=== PATIENT | male | born 1930 | race Caucasian/White ===

== ENCOUNTER → 2017-05-26 | Day surgery (SDC) | payer OTHER ==
[2017-05-13 14:51] VITALS: Ht 182.9 cm; Wt 91.9 kg
--- NOTE | 2017-05-13 15:18 | PAT Medication Instructions ---
Service Date May 13, 2017. Current Home Medication List Cholecalciferol (D 1000), 1 TAB PO QAM Cyanocobalamin (Vitamin B-12), 1,000 MCG PO QAM Fluticasone Prop/Salmeterol (Advair Diskus 100/50 60 Dose), 1 PUFF INH QAM Hctz/Spironolactone (Spironolactone/Hydrochlor 25-25 mg), 0.5 TAB PO QAM Silodosin (Rapaflo), 1 CAP PO QPM Medication Instructions For Your Scheduled Surgery - Hold the following medications the morning of surgery: Cholecalciferol (D 1000), 1 TAB PO QAM Cyanocobalamin (Vitamin B-12), 1,000 MCG PO QAM Hctz/Spironolactone (Spironolactone/Hydrochlor 25-25 mg), 0.5 TAB PO QAM - Take the following medications the morning of surgery with a sip of water: Fluticasone Prop/Salmeterol (Advair Diskus 100/50 60 Dose), 1 PUFF INH QAM - Take the following medications as scheduled the night before surgery: Silodosin (Rapaflo), 1 CAP PO QPM If you have any questions please call us at [phone] or [phone] or [phone]
[2017-05-13 15:52] LABS: BASO % 0.3 %; BASO ABS # 0.02 K/uL (0-0.2); EOS % 4.9 %; EOS ABS # 0.34 K/uL (0-0.5); HEMATOCRIT 39.6 % (42-52); HEMOGLOBIN 13.2 g/dL (14.0-18.0); IG# 0.03 K/uL (0.00-0.02); LYMPH % 28.8 %; LYMPH ABS # 2.01 K/uL (1.2-3.4); MEAN CELL VOLUME 95.7 fL (80-100); MEAN CORPUSCULAR HEMOGLOBIN 31.9 pg (25-34); MEAN CORPUSCULAR HGB CONC 33.3 g/dl (32-36); MEAN PLATELET VOLUME 10.6 fL (7.4-10.4); MONO % 9.6 %; MONO ABS # 0.67 K/uL (0.11-0.59); NEUT ABS # 3.92 K/uL (1.4-6.5); PLATELET COUNT 136 K/uL (130-400); RED CELL DISTRIBUTION WIDTH CV 13.4 % (11.5-14.5); RED CELL DISTRIBUTION WIDTH SD 46.6 fL (36.4-46.3); WHITE BLOOD COUNT 6.99 K/uL (4.8-10.8)
--- NOTE | 2017-05-13 16:08 | DIAGNOSTIC IMAGING REPORT ---
CHEST 2 VIEWS ROUTINE CLINICAL HISTORY: PAT preoperative evaluation COMPARISON STUDY: 08/25/2015 FINDINGS: Mild stable cardiomegaly. Tortuosity thoracic aorta. Lungs show no focal infiltrate. Chronic pleural reactive changes left hemithorax. This is unchanged. Several small calcified granulomas also unchanged. No acute infiltrate. IMPRESSION: Chronic change. No acute process. The above report was generated using voice recognition software. It may contain grammatical, syntax or spelling errors. Electronically signed by: Rishi Boothe M.D. 05/13/2017 4:06 PM Dictated Date/Time: 05/13/2017 4:05 PM
[2017-05-13 16:20] LABS: CALCIUM 10.3 mg/dl (8.5-10.1); CREATININE 0.94 mg/dl (0.60-1.40)
[~2017-05-26] VITALS: Ht 182.9 cm; Wt 91.9 kg
[~2017-05-26] MED LIST: ADVIN10/60 INH; ATROPINE SULFATE 0.1 MG/ML 5ML SYR IV PRN; BUPIVACAINE 0.5 % 5 MG/1 ML MPF 30ML VIAL ONE; CHOL100041 PO; CIPROFLOXACIN / D5W 400 MG IV SCH; CYAN10005 PO; DEXAMETHASONE SOD INJ 4 MG/ML VIAL ONE; EpHEDrine SULFATE 50MG/5ML SYR ONE; EpHEDrine SULFATE INJ 50 MG/ML AMP IV PRN; FENTANYL CITRATE INJ 50 MCG/1 ML 2 ML VIAL ONE; HYDROmorphone INJ 2 MG/ML SYR/VIAL IV PRN; LACTATED RINGER'S 1000ML 1,000 ML IV SCH; LIDOCAINE HCL 2% 2 ML VIAL (20MG/ML) ONE; ONDANSETRON INJ 2 MG/ML 2 ML VIAL IV PRN; ONDANSETRON INJ 2 MG/ML 2 ML VIAL ONE; OXYC-57 PO; OXYCODONE/ACETAMINOPHEN 5-325 TAB PO PRN; PHENYLEPHRINE 100MCG/ML 5ML SYR IV PRN; PROPOFOL IV EMULSION 10 MG/ML 20 ML VIAL IV ONE; SILO8CAP PO; SPIR1TAB72 PO
[2017-05-26 08:29] VITALS: BP 176/81; PULSE 82; TEMP 36.6; O2SAT 95
--- NOTE | 2017-05-26 09:41 | History & Physical Bridge Note ---
H&P Re-Evaluation Bridge Note: I have examined the patient, reviewed the History & Physical and in the interval since the performance of the History & Physical I have noted the following changes of clinical significance: No changes noted
--- NOTE | 2017-05-26 11:17 | [facility] Post Operative Brief Note ---
Immediate Operative Summary Operative Date May 26, 2017. Pre-Operative Diagnosis Phimosis Post-Operative Diagnosis Phimosis Procedure(s) Performed Circumcision Surgeon Dr Smith Arch Pad Cementer Surgeon(s) none Estimated Blood Loss 1cc Findings Consistent with Post-Op Diagnosis Specimens A: Foreskin Drains None Anesthesia Type General Complication(s) none Disposition Accompanied Pt To Recover: yes Disposition: Recovery Room / PACU
--- NOTE | 2017-05-26 11:18 | Discharge Instructions ---
Discharge Instructions Date of Service May 26, 2017. Visit Reason for Visit: Phimosis Discharge Discharge Diagnosis / Problem: phimosis Discharge Goals Goal(s): Therapeutic intervention Activity Recommendations Activity Limitations: per Instructions/Follow-up section Exercise/Sports Limitations: gradually increase as tolerated May Resume Sexual Activity: after follow-up appointment Shower/Bathe: no limitations Driving or Machine Use: resume 1 day after discharge Anesthesia . Post Anesthesia Instructions: If you have had General Anesthesia or IV Sedation: * Do not drive today. * Resume driving when surgeon permits. * Do not make important decisions or sign legal documents today. * Call surgeon for: 1. Temperature elevations greater than 101 degrees F. 2. Uncontrollable pain. 3. Excessive bleeding. 4. Persistent nausea and vomiting. 5. Medication intolerance (nausea, vomiting or rash). * For nausea and vomiting use only clear liquids such as: tea, soda, bouillon until nausea subsides, then gradually increase diet as tolerated. * If you have any concerns or questions, call your surgeon's office. If physician is unavailable and it is an emergency, call 911 or go to the nearest emergency room. . Diet Recommendations Recommended Home Diet: resume previous diet Procedures Procedures Performed: Circumcision Pending Studies Studies pending at discharge: no Medical Emergencies . Who to Call and When: Medical Emergencies: If at any time you feel your situation is an emergency, please call 911 immediately. . Non-Emergent Contact Non-Emergency issues call your: Urologist Call Non-Emergent contact if: temperature is above 101.5, your pain is not controlled . . "Provider Documentation" section prepared by Ronak Smith. . [place] [facility] [place] [facility] Search Results: patient reviewed within database
--- NOTE | 2017-05-26 11:37 | [facility] Operative Report ---
Operative Report Operative Date May 26, 2017. Pre-Operative Diagnosis Phimosis Post-Operative Diagnosis Phimosis Procedure(s) Performed Circumcision Surgeon Dr Smith Delivery Helper Surgeon(s) none Estimated Blood Loss 1cc Findings Phimotic foreskin Specimens A: Foreskin Drains None Anesthesia Type General Complication(s) none Disposition yes Recovery Room / PACU Indications Patient's an 86-year-old white male with phimosis who requested to have a circumcision for correction Description of Procedure After the induction of an adequate general anesthetic and appropriate timeout patient's lower abdomen genitalia phallus with scrubbed with Betadine scrub then prepped with Betadine paint and draped in a sterile fashion. First a circumferential incision along the etienne was marked on the outer preputial foreskin incision was then made circumferentially along this line. Carried down through skin through the some of the subcutaneous tissues foreskin was then retracted in an inner preputial incision was made leaving a cuff of tissue on the shaft of the penis to sew to the 2 cut edges were then connected in the middle and the tissue was dissected off the shaft any bleeding points were then electrocoagulated several of the larger vessels were tied with 4-0 Vicryl. After making sure there was no bleeding the 2 cut edges were then reapproximated with 3-0 and 4-0 chromic. After completing the reanastomosis the incision was washed and dried and Xeroform gauze and a dry sterile dressing were applied. All needle sponge and instrument counts were correct at the end of the case. Patient tolerated the procedure well was taken to the recovery room in stable condition I attest to the content of the Intraoperative Record and any orders documented therein. Any exceptions are noted below.
--- NOTE | 2017-05-26 11:52 | Anesthesiology Progress Note ---
Anesthesia Post Op Note Date & Time May 26, 2017 at 11:52 Vital Signs Pain Intensity: 0 Vital Signs Past 12 Hours Date Time Temp Pulse Resp B/P (MAP) Pulse Ox O2 Delivery O2 Flow Rate FiO2 05/26/17 11:45 71 18 05/26/17 11:45 71 18 93 05/26/17 11:43 137/75 05/26/17 11:42 36.3 70 16 137/75 93 Room Air 05/26/17 11:40 70 21 05/26/17 11:40 69 21 97 05/26/17 11:38 140/78 05/26/17 11:35 69 21 99 05/26/17 11:35 69 21 05/26/17 11:34 69 17 05/26/17 11:34 69 17 99 05/26/17 11:33 142/80 05/26/17 11:30 139/72 05/26/17 11:29 67 15 99 05/26/17 11:29 67 15 05/26/17 11:20 66 18 134/69 (81) 99 Oxymask 10 05/26/17 11:14 36.6 67 14 139/72 (97) 99 Oxymask 10 05/26/17 08:29 36.6 82 20 176/81 (112) 95 Room Air Notes Mental Status: alert / awake / arousable, participated in evaluation Pt Amnestic to Procedure: Yes Nausea / Vomiting: adequately controlled Pain: adequately controlled Airway Patency, RR, SpO2: stable & adequate BP & HR: stable & adequate Hydration State: stable & adequate Anesthetic Complications: no major complications apparent
[2017-05-26 12:00] VITALS: BP 148/77; PULSE 69; TEMP 36.3; O2SAT 95
[2017-05-26 12:30] VITALS: BP 156/81; PULSE 68; TEMP 36.2; O2SAT 93
[2017-05-26 13:10] VITALS: BP 177/91; PULSE 75; TEMP 36.3; O2SAT 95
== END | disposition home or self-care (01) ==
LOC: C.ACU 07:58
PROVIDERS: ATTEND Urology
DX: N47.1 Phimosis (principal); J44.9 Chronic obstructive pulmonary disease, unspecified; K21.9 Gastro-esophageal reflux disease without esophagitis; F10.20 Alcohol dependence, uncomplicated; J45.909 Unspecified asthma, uncomplicated; N40.1 Benign prostatic hyperplasia with lower urinary tract symptoms; N13.8 Other obstructive and reflux uropathy; Z86.718 Personal history of other venous thrombosis and embolism; M81.0 Age-related osteoporosis without current pathological fracture; Z87.01 Personal history of pneumonia (recurrent); Z87.891 Personal history of nicotine dependence; Z88.2 Allergy status to sulfonamides; Z90.49 Acquired absence of other specified parts of digestive tract; Z83.3 Family history of diabetes mellitus; Z80.1 Family history of malignant neoplasm of trachea, bronchus and lung; Z80.0 Family history of malignant neoplasm of digestive organs

== ENCOUNTER 2020-09-21 22:58 | Inpatient (IN) ==
[2020-09-21] MEDS ORDERED: SODIUM CHLORIDE 0.9% 500 ML IV ONE (23:48)
[2020-09-21] MEDS ORDERED: fentaNYL citrate 100 MCG/2 ML VIAL IV STA (23:48)
--- NOTE | 2020-09-21 23:57 | Emergency Department Note ---
Impression & Plan Acute pancreatitis, Acute cholecystitis, RLL pneumonia ED Provider Note Name: TOM PENG Age: 89 Sex: M Arrives Via: Walk-In Informant: Patient, son ED Provider: Orville Ramos MD Chief Complaint: right flank pain Impression: Acute Pancreatitis Acute Cholecystitis RLL Pneumonia Medical Decision Makin yr old male with acute right flank pain starting after eating this evening. He arrives hypoxia with significant TTP entire right and upper abdomen. He has crackles bilateral lower lobes and is not taking very deep breaths. IV obtained and IV fentanyl given for pain control, did well with initial dose though still uncomfortable thus bigger dose given with good improvement. CXR with RLL infiltrate. Labs with bumped LFTs, Lipase, and mild wbc elevation. CT confirms concern for pneumonia, though of bigger concern is acute pancreatitis and enlarged gallbladder. Suspect this is acute cholecystitis with pancreatitis. Unclear why pneumonia. With findings of infection blood cultures and lactate obtained. Empiric zosyn begun. Lactate returned mildly elevated and thus further IV fluids given. Patient feeling better and agreeable to ho spitalization. Aware risks of worsening. Prior Medical Record and Triage/Nursing Notes reviewed by Me Additional history obtained from chart and son Given the patients BMI >30, IBW was used to calculate the 30ml/kg fluid bolus. Differentials:Renal colic, Pancreatitis, pneumonia, PE, UTI, appendicitis, diverticulitis, mesenteric ischemia, aortic pathology, infections, inflammatory bowel disease, PUD, biliary pathology, as well as other pathologies. Vital Signs: reviewed and remarkable for hypoxia Interventions: saline lock, nss bolus 2 L IV, Zosyn IV, Labs:Reviewed and remarkable for elevated lipase/lfts Imaging:X ray results are stated below per my interpretation: Chest: 1 view: RLL infiltrate [facility] Radiologist interpretation reviewed by me: "CT ABDOMEN & PELVIS With Contrast: Pancreatitis. No pseudocyst. Gallbladder distention and mild edema. No radiodense gallstones. Biliary ectasia. Duodenal diverticula. Fat-containing ventral hernia. Thickened, trabeculated bladder with diverticula. Colonic diverticula without diverticulitis. Small right inguinal hernia Compression fracture L1 Thoracic findings as reported. Radiologist: Zahra Izquierdo M.D. CTA CHEST: No pulmonary embolus. Bibasilar consolidation. Calcified pleural plaques. Cardiomegaly. Trace pericardial fluid. Small hiatal hernia. Refer to CT abdomen for additional findings. Radiologist: Zahra Izquierdo M.D." EKG:Per My Interpretation: Indication right flank pain: NSR 100 bpm, qtc 474 with PVCs. No Ischemia. Unable to open previous EKG for comparison Cardiac/Tele Monitoring: Cardiac Monitoring: An Order was placed for continuous cardiac monitoring. The monitor shows a rate of 90 with a normal sinus rhythm. Consults:Dr Jenaro REDDY Hospitalist Plan: Disposition:Hospitalization. Condition: Fair History of Present Illness:89 yr old male arrives for evaluation of right flank pain. Notes he ate dinner around 6pm and developed right flank pain shortly thereafter. Gradually worsening. Radiates to RLQ. Associated with diffuse ab dominal pain. Worse with movement and deep breath. Denies nausea, vomiting, sob, chest pain, back pain, syncope, leg swelling, headache, neck pain, urinary symptoms, diarrhea, blood in stool, nor other symptoms. Denies previous episodes like this. Previous appendectomy. No history of renal colic. Denies AAA known. ROS: See above HPI for pertinent positives & negatives. A total of 10 systems reviewed and were otherwise negative. Past Medical History:See Below Past Surgical History:See Below Family History:See Below Social History:See Below Home Medications:See Below Allergies:See Below Vitals:Blood Pressure: 118/64, Pulse 98, RR 20, T 36.8C, O2 84% on RA Physical Exam: GENERAL: Patient is uncomfortable appearing and in moderate distress. EYES: No scleral icterus, unremarkable pupils. ENT: Mucous membranes dry, no nasal congestion. NECK: No masses appreciated, nomeningismus, trachea is midline. RESPIRATORY: No dyspnea. Clear to auscultation and equal bilaterally. No wheeze, no rhonchi. CARDIOVASCULAR: Regular rate and rhythm.No murmurs, rubs, gallops appreciated. GASTROINTESTINAL: TTP entire right abdomen, soft, no peritonitis.Bowel sounds positive.No masses appreciated. BACK: No midline tenderness, no CVA tenderness EXTREMITIES: Normal motion all extremities, no cyanosis, no edema. NEUROLOGIC: Alert and oriented, no acute motor or sensory deficits, no focal weakness, cranial nerves grossly intact. SKIN: No rash, no jaundice, no diaphoresis. PSYCH: Appropriate GCS: 15 ED Course: Times/Reassessments: Improving pain, stable vitals other than mild drop in BP with pain medications. Sats improved with NC O2 Orville Ramos MD Past Med/Surg History Medical History (Updated 09/22/20 @ 05:15 by Orville Ramos MD) BPH with obstruction/lower urinary tract symptoms Social History Smoking Status: Former smoker Tobacco Type: Cigarettes Preferred Language: [place] Feels Safe at Home: Yes Allergies Allergies Allergy/AdvReac Type Severity Reaction Status Date / Time Quinolones AdvReac Unknown NAUSEA/CHIL Verified 09/22/20 00:19 LS sulfamethoxazole AdvReac Unknown NAUSEA/CHIL Verified 09/22/20 00:19 LS trimethoprim AdvReac Unknown NAUSEA/CHIL Verified 09/22/20 00:19 LS WOOL Allergy Unknown ITCHING Uncoded 09/22/20 00:19 Home Meds Home Medications Medication Instructions Recorded Confirmed cyanocobalamin (vitamin B-12) 1,000 mcg PO DAILY 12/17/18 09/22/20 1,000 mcg capsule alendronate 35 mg PO WK 09/22/20 09/22/20 cholecalciferol (vitamin D3) 50 mcg PO BID 09/22/20 09/22/20 [Vitamin D3] mirabegron [Myrbetriq] 25 mg PO QPM 09/22/20 09/22/20 spironolacton-hydrochlorothiaz 1 tab PO QAM 09/22/20 09/22/20 tamsulosin 0.4 mg PO DAILY 09/22/20 09/22/20 Results & Data (ED) Vital Signs Vital Signs - 24 hr 09/21/20 22:59 09/21/20 23:09 09/21/20 23:26 Pulse Rate 98 H 103 H Pulse Rate from SpO2 Sensor Pulse Rhythm Regular Pulse Strength Normal Respiratory Rate 20 23 Respiratory Effort / Characteristics Non-Labored Spontaneous Non-Labored Respiratory Depth Normal Normal Blood Pressure 118/64 132/67 Blood Pressure [Left Arm] Blood Pressure Mean 82 88 Blood Pressure Mean [Left Arm] Blood Pressure Position Sitting Pulse Oximetry 85 L 91 Oxygen Delivery Method Room Air Nasal Cannula Oxygen Flow Rate 4 Sepsis Recent Fever Within 48 Hours No Sepsis New/Unexplained Change in Mental Status N/A Sepsis Action Taken by Nursing No Action Required 09/21/20 23:30 09/22/20 00:00 09/22/20 00:30 Pulse Rate 97 H 99 H 100 H Pulse Rate from SpO2 Sensor 91 H 98 H 101 H Pulse Rhythm Pulse Strength Respiratory Rate 23 22 36 H Respiratory Effort / Characteristics Respiratory Depth Blood Pressure 119/55 L 112/65 111/65 Blood Pressure [Left Arm] Blood Pressure Mean 76 80 80 Blood Pressure Mean [Left Arm] Blood Pressure Position Pulse Oximetry 91 91 94 Oxygen Delivery Method Nasal Cannula Oxygen Flow Rate 3 Sepsis Recent Fever Within 48 Hours Sepsis New/Unexplained Change in Mental Status Sepsis Action Taken by Nursing 09/22/20 00:31 09/22/20 01:08 09/22/20 01:30 Pulse Rate 101 H 95 H Pulse Rate from SpO2 Sensor 96 H 98 H 95 H Pulse Rhythm Pulse Strength Respiratory Rate 26 H 23 Respiratory Effort / Characteristics Respiratory Depth Blood Pressure 99/50 L Blood Pressure [Left Arm] Blood Pressure Mean 66 Blood Pressure Mean [Left Arm] Blood Pressure Position Pulse Oximetry 94 93 94 Oxygen Delivery Method Oxygen Flow Rate Sepsis Recent Fever Within 48 Hours Sepsis New/Unexplained Change in Mental Status Sepsis Action Taken by Nursing 09/22/20 02:00 09/22/20 02:42 09/22/20 04:00 Pulse Rate 93 H 82 Pulse Rate from SpO2 Sensor 96 H 81 Pulse Rhythm Pulse Strength Respiratory Rate 22 24 Respiratory Effort / Characteristics Respiratory Depth Blood Pressure 91/49 L 97/62 L Blood Pressure [Left Arm] 87/59 L Blood Pressure Mean 63 73 Blood Pressure Mean [Left Arm] 68 Blood Pressure Position Pulse Oximetry 93 92 Oxygen Delivery Method Nasal Cannula Oxygen Flow Rate 4 Sepsis Recent Fever Within 48 Hours Sepsis New/Unexplained Change in Mental Status Sepsis Action Taken by Nursing 09/22/20 05:10 Pulse Rate Pulse Rate from SpO2 Sensor Pulse Rhythm Pulse Strength Respiratory Rate Respiratory Effort / Characteristics Respiratory Depth Blood Pressure 87/50 L Blood Pressure [Left Arm] Blood Pressure Mean Blood Pressure Mean [Left Arm] Blood Pressure Position Pulse Oximetry 92 Oxygen Delivery Method Room Air Oxygen Flow Rate Sepsis Recent Fever Within 48 Hours Sepsis New/Unexplained Change in Mental Status Sepsis Action Taken by Nursing Laboratory Data Result diagrams: 09/21/20 23:15 09/21/20 23:15 Lab Results 09/21/20 09/21/20 09/21/20 Range/Units 23:15 23:15 23:15 WBC 13.60 H (4.8-10.8) K/uL RBC 4.70 (4.7-6.1) M/uL Hgb 15.0 (14.0-18.0) g/dL Hct 45.3 (42-52) % MCV 96.4 (80-100) fL MCH 31.9 (25-34) pg MCHC 33.1 (32-36) g/dL RDW Std Deviation 48.3 H (36.4-46.3) fL RDW Coeff of Andre 13.7 (11.5-14.5) % Plt Count 120 L (130-400) K/uL MPV 11.5 H (7.4-10.4) fL Immature Gran % (Auto) 0.4 % Neut % (Auto) 90.7 % Lymph % (Auto) 7.4 % [place] % (Auto) 1.1 % Eos % (Auto) 0.4 % Baso % (Auto) 0.0 % Neut # (Auto) 12.34 H (1.4-6.5) K/uL Lymph # (Auto) 1.01 L (1.2-3.4) K/uL [place] # (Auto) 0.15 (0.11-0.59) K/uL Eos # (Auto) 0.05 (0-0.5) K/uL Baso # (Auto) 0.00 (0-0.2) K/uL Immature Gran # (Auto) 0.05 H (0.00-0.02) K/uL PT 11.0 (9.0-12.0) Seconds INR 1.1 (0.9-1.1) Sodium 138 (136-145) mmol/L Potassium 3.5 (3.5-5.1) mmol/L Chloride 104 (98-107) mmol/L Carbon Dioxide 25 (21-32) mmol/L Anion Gap 9.0 (3-11) BUN 19 H (7-18) mg/dl Creatinine 1.15 (0.6-1.4) mg/dl Est Cr Clr Drug Dosing Not Reportable Est GFR ( Amer) 65.5 ml/min Est GFR (Non-Af Amer) 56.5 ml/min BUN/Creatinine Ratio 16.9 (10-20) Glucose 92 (70-99) mg/dl Lactate (0.4-2.0) mmol/L Calcium 9.5 (8.5-10.1) mg/dl Magnesium 2.0 (1.8-2.4) mg/dl Total Bilirubin 2.3 H (0.2-1) mg/dl Direct Bilirubin 1.2 H (0-0.2) mg/dl AST 239 H (15-37) U/L ALT 107 H (12-78) U/L Alkaline Phosphatase 187 H (45-117) U/L Troponin I 0.018 (0-0.045) ng/ml NT-Pro-B Natriuret Pep 1852 H (0-1800) pg/ml Total Protein 7.7 (6.4-8.2) gm/dl Albumin 3.9 (3.4-5.0) gm/dl Lipase 96804 H (73-393) U/L Urine Color Urine Appearance (Clear) Urine pH (4.5-7.5) Ur Specific [place] (1.000-1.030) Urine Protein (Negative) Urine Glucose (UA) (Negative) Urine Ketones (Negative) Urine Blood (Negative) Urine Nitrite (Negative) Urine Bilirubin (Negative) Urine Urobilinogen (Negative) Ur Leukocyte Esterase (Negative) Urine WBC (Auto) (0-5) /hpf Urine RBC (Auto) (0-4) /hpf U Hyaline Cast (Auto) (0-5) /lpf U Epithel Cells (Auto) (0-5) /lpf Urine Bacteria (Auto) (Negative) COVID-19 Eval Order SARS-CoV-2 (PCR) (Negative) 09/22/20 09/22/20 09/22/20 Range/Units 01:35 01:35 01:46 WBC (4.8-10.8) K/uL RBC (4.7-6.1) M/uL Hgb (14.0-18.0) g/dL Hct (42-52) % MCV (80-100) fL MCH (25-34) pg MCHC (32-36) g/dL RDW Std Deviation (36.4-46.3) fL RDW Coeff of Andre (11.5-14.5) % Plt Count (130-400) K/uL MPV (7.4-10.4) fL Immature Gran % (Auto) % Neut % (Auto) % Lymph % (Auto) % [place] % (Auto) % Eos % (Auto) % Baso % (Auto) % Neut # (Auto) (1.4-6.5) K/uL Lymph # (Auto) (1.2-3.4) K/uL [place] # (Auto) (0.11-0.59) K/uL Eos # (Auto) (0-0.5) K/uL Baso # (Auto) (0-0.2) K/uL Immature Gran # (Auto) (0.00-0.02) K/uL PT (9.0-12.0) Seconds INR (0.9-1.1) Sodium (136-145) mmol/L Potassium (3.5-5.1) mmol/L Chloride (98-107) mmol/L Carbon Dioxide (21-32) mmol/L Anion Gap (3-11) BUN (7-18) mg/dl Creatinine (0.6-1.4) mg/dl Est Cr Clr Drug Dosing Est GFR ( Amer) ml/min Est GFR (Non-Af Amer) ml/min BUN/Creatinine Ratio (10-20) Glucose (70-99) mg/dl Lactate 2.2 H* (0.4-2.0) mmol/L Calcium (8.5-10.1) mg/dl Magnesium (1.8-2.4) mg/dl Total Bilirubin (0.2-1) mg/dl Direct Bilirubin (0-0.2) mg/dl AST (15-37) U/L ALT (12-78) U/L Alkaline Phosphatase (45-117) U/L Troponin I (0-0.045) ng/ml NT-Pro-B Natriuret Pep (0-1800) pg/ml Total Protein (6.4-8.2) gm/dl Albumin (3.4-5.0) gm/dl Lipase (73-393) U/L Urine Color Urine Appearance (Clear) Urine pH (4.5-7.5) Ur Specific [place] (1.000-1.030) Urine Protein (Negative) Urine Glucose (UA) (Negative) Urine Ketones (Negative) Urine Blood (Negative) Urine Nitrite (Negative) Urine Bilirubin (Negative) Urine Urobilinogen (Negative) Ur Leukocyte Esterase (Negative) Urine WBC (Auto) (0-5) /hpf Urine RBC (Auto) (0-4) /hpf U Hyaline Cast (Auto) (0-5) /lpf U Epithel Cells (Auto) (0-5) /lpf Urine Bacteria (Auto) (Negative) COVID-19 Eval Order Covid19 at [facility] SARS-CoV-2 (PCR) NEGATIVE (Negative) 09/22/20 Range/Units 02:45 WBC (4.8-10.8) K/uL RBC (4.7-6.1) M/uL Hgb (14.0-18.0) g/dL Hct (42-52) % MCV (80-100) fL MCH (25-34) pg MCHC (32-36) g/dL RDW Std Deviation (36.4-46.3) fL RDW Coeff of Andre (11.5-14.5) % Plt Count (130-400) K/uL MPV (7.4-10.4) fL Immature Gran % (Auto) % Neut % (Auto) % Lymph % (Auto) % [place] % (Auto) % Eos % (Auto) % Baso % (Auto) % Neut # (Auto) (1.4-6.5) K/uL Lymph # (Auto) (1.2-3.4) K/uL [place] # (Auto) (0.11-0.59) K/uL Eos # (Auto) (0-0.5) K/uL Baso # (Auto) (0-0.2) K/uL Immature Gran # (Auto) (0.00-0.02) K/uL PT (9.0-12.0) Seconds INR (0.9-1.1) Sodium (136-145) mmol/L Potassium (3.5-5.1) mmol/L Chloride (98-107) mmol/L Carbon Dioxide (21-32) mmol/L Anion Gap (3-11) BUN (7-18) mg/dl Creatinine (0.6-1.4) mg/dl Est Cr Clr Drug Dosing Est GFR ( Amer) ml/min Est GFR (Non-Af Amer) ml/min BUN/Creatinine Ratio (10-20) Glucose (70-99) mg/dl Lactate (0.4-2.0) mmol/L Calcium (8.5-10.1) mg/dl Magnesium (1.8-2.4) mg/dl Total Bilirubin (0.2-1) mg/dl Direct Bilirubin (0-0.2) mg/dl AST (15-37) U/L ALT (12-78) U/L Alkaline Phosphatase (45-117) U/L Troponin I (0-0.045) ng/ml NT-Pro-B Natriuret Pep (0-1800) pg/ml Total Protein (6.4-8.2) gm/dl Albumin (3.4-5.0) gm/dl Lipase (73-393) U/L Urine Color Dark Yellow Urine Appearance Clear (Clear) Urine pH 6.0 (4.5-7.5) Ur Specific [place] > 1.045 H (1.000-1.030) Urine Protein Trace H (Negative) Urine Glucose (UA) Negative (Negative) Urine Ketones Negative (Negative) Urine Blood Negative (Negative) Urine Nitrite Negative (Negative) Urine Bilirubin 1+ H (Negative) Urine Urobilinogen Negative (Negative) Ur Leukocyte Esterase Negative (Negative) Urine WBC (Auto) 1-5 (0-5) /hpf Urine RBC (Auto) 0-4 (0-4) /hpf U Hyaline Cast (Auto) 0 (0-5) /lpf U Epithel Cells (Auto) 0-5 (0-5) /lpf Urine Bacteria (Auto) Negative (Negative) COVID-19 Eval Order SARS-CoV-2 (PCR) (Negative) Administered Medications Discontinued Medications Fentanyl Citrate (Fentanyl Citrate 100 Mcg/2 Ml Vial) 25 mcg IV NOW STA Stop: 09/21/20 23:49 Last Admin: 09/22/20 00:08 Dose: 25 mcg Documented by: [id number] Fentanyl Citrate (Fentanyl Citrate 100 Mcg/2 Ml Vial) 50 mcg IV NOW STA Stop: 09/22/20 00:33 Last Admin: 09/22/20 00:38 Dose: 50 mcg Documented by: [id number] Sodium Chloride (Nss) 500 mls @ 999 mls/hr IV .Q31M ONE Stop: 09/22/20 00:18 Last Infusion: 09/22/20 00:45 Dose: 0 mls/hr Documented by: [id number] Admin: 09/22/20 00:09 Dose: 999 mls/hr Documented by: [id number] Sodium Chloride (Nss 1000ml) 1,000 mls @ 999 mls/hr IV .Q1H1M ONE Stop: 09/22/20 02:21 Last Admin: 09/22/20 01:50 Dose: 999 mls/hr Documented by: [id number] Piperacillin Sod/Tazobactam Sod (Zosyn) 4.5 gm in 120 mls @ 240 mls/hr IV NOW ONE Stop: 09/22/20 01:50 Last Infusion: 09/22/20 02:20 Dose: 0 mls/hr Documented by: [id number] Admin: 09/22/20 01:50 Dose: 240 mls/hr Documented by: [id number] Promethazine HCl (Phenergan) 6.25 mg in 50.25 mls @ 201 mls/hr IV NOW STA Stop: 09/22/20 02:57 Last Admin: 09/22/20 02:59 Dose: 201 mls/hr Documented by: [id number] Ioversol (Optiray 320 125ml) 125 ml IV ONCE ONE Stop: 09/22/20 01:11 Last Admin: 09/22/20 01:10 Dose: 118 ml Documented by: [id number] Ondansetron HCl (Ondansetron Inj 2 Mg/Ml 2 Ml Vial) 4 mg IV NOW STA Stop: 09/22/20 01:16 Last Admin: 09/22/20 01:29 Dose: 4 mg Documented by: [id number] Discharge Plan Visit Data Chief Complaint: Abdominal Pain Stated Complaint: ABDOMINAL PAIN, VOMITING, CHILLS ED Provider: Orville Ramos Discharge Problem: Acute pancreatitis, Acute cholecystitis, RLL pneumonia Patient Disposition: Admitted As Inpatient Discharge Instructions Interventions: ED Discharge Assessment Last Done: 09/22/20 05:10 Forms Stand Alone Forms: [facility] [place] Prescriptions Prescriptions: No Action cyanocobalamin (vitamin B-12) 1,000 mcg capsule 1,000 mcg PO DAILY RF: 0 alendronate 35 mg tablet 35 mg PO WK RF: 0 tamsulosin 0.4 mg capsule 0.4 mg PO DAILY RF: 0 spironolacton-hydrochlorothiaz 25-25 mg tablet 1 tab PO QAM RF: 0 cholecalciferol (vitamin D3) [Vitamin D3] 50 mcg (2,000 unit) Tablet 50 mcg PO BID RF: 0 Myrbetriq 25 mg Tablet Extended Release 24 Hr 25 mg PO QPM RF: 0 Referrals Referrals: Michael Bain MD [Primary Care Provider] - Discharge Problem: Acute pancreatitis Qualifiers: Pancreatitis type: idiopathic Acute pancreatitis complication: no infection or necrosis Qualified Code(s): K85.00 - Idiopathic acute pancreatitis without necr osis or infection RLL pneumonia Qualifiers: Pneumonia type: due to unspecified organism Qualified Code(s): J18.9 - Pneumonia, unspecified organism
[2020-09-22 00:09] LABS: INR 1.1 (0.9-1.1)
[2020-09-22 00:13] LABS: Alanine Aminotransferase 107 U/L (12-78); Albumin Level 3.9 gm/dl (3.4-5.0); Aspartate Aminotransferase 239 U/L (15-37); BUN Creatinine Ratio 16.9 (10-20); Bilirubin Direct 1.2 mg/dl (0-0.2); Blood Urea Nitrogen 19 mg/dl (7-18); Calcium 9.5 mg/dl (8.5-10.1); Carbon Dioxide 25 mmol/L (21-32); Chloride 104 mmol/L (98-107); Est GFR (African American) 65.5 ml/min; Est GFR (Non-African American) 56.5 ml/min; Glucose 92 mg/dl (70-99); Potassium 3.5 mmol/L (3.5-5.1); Sodium 138 mmol/L (136-145)
[2020-09-22 00:14] LABS: Eosinophils # (auto) 0.05 K/uL (0-0.5); Eosinophils % (auto) 0.4 %; Hematocrit (blood only) 45.3 % (42-52); Immature Granulocytes # (auto) 0.05 K/uL (0.00-0.02); Immature Granulocytes % (auto) 0.4 %; Lymphocytes # (auto) 1.01 K/uL (1.2-3.4); Lymphocytes % (auto) 7.4 %; Mean Corpuscular Hemoglobin 31.9 pg (25-34); Mean Corpuscular Hgb Conc 33.1 g/dL (32-36); Mean Corpuscular Volume 96.4 fL (80-100); Mean Platelet Volume 11.5 fL (7.4-10.4); Monocytes # (auto) 0.15 K/uL (0.11-0.59); Monocytes % (auto) 1.1 %; Neutrophils # (auto) 12.34 K/uL (1.4-6.5); Neutrophils % (auto) 90.7 %; Platelet Count 120 K/uL (130-400); RDW Coefficient of Variation 13.7 % (11.5-14.5); RDW Standard Deviation 48.3 fL (36.4-46.3)
[2020-09-22 00:19] LABS: Alkaline Phosphatase 187 U/L (45-117); Bilirubin,Total 2.3 mg/dl (0.2-1); Lipase 16720 U/L (73-393); NT Pro B Type Natriuretic Pept 1852 pg/ml (0-1800); Total Protein 7.7 gm/dl (6.4-8.2); Troponin I 0.018 ng/ml (0-0.045)
[2020-09-22] MEDS ORDERED: fentaNYL citrate 100 MCG/2 ML VIAL IV STA (00:32)
[2020-09-22] MEDS ORDERED: OPTIRAY 320 125ml IV ONE (01:10)
[2020-09-22] MEDS ORDERED: ONDANSETRON INJ 2 MG/ML 2 ML VIAL IV STA (01:15)
[2020-09-22] MEDS ORDERED: PIPERACILLIN/TAZOBACTAM 4.5 GM/120 ML BAG IV ONE (01:21)
[2020-09-22] MEDS ORDERED: PIPERACILL/TAZOBAC CONSULT ACTIVE PRN ×2 (01:21→05:38)
[2020-09-22] MEDS ORDERED: SODIUM CHLORIDE 0.9% 1000ML 1,000 ML IV ONE (01:21)
[2020-09-22] MEDS ORDERED: HYDROmorphone INJ 0.5 MG/0.5 ML SYR IV PRN (01:59)
[2020-09-22] MEDS ORDERED: PROMETHAZINE 6.25 MG/50.25 ML BAG IV STA (02:43)
[2020-09-22] MEDS ORDERED: MoRPHine SULFATE 2 MG/ML CARP IV STA (02:44)
[2020-09-22 02:58] LABS: Appearance Urine Clear (Clear); Bacteria Urine Automated Negative (Negative); Blood Urine Negative (Negative); Cast Urine Automated 0 /lpf (0-5); Color Urine Dark Yellow; Epithelial Cell Urine Auto 0-5 /lpf (0-5); Glucose Urine UA Negative (Negative); Ketones Urine Negative (Negative); Leukocyte Esterase Urine Negative (Negative); Nitrite Urine Negative (Negative); Protein Urine Trace (Negative); RBC Urine Automated 0-4 /hpf (0-4); Specific Gravity Urine > 1.045 (1.000-1.030); Urobilinogen Urine Negative (Negative)
[2020-09-22 03:05] LABS: Bilirubin Urine 1+ (Negative)
--- NOTE | 2020-09-22 03:13 | History & Physical Report ---
Date of Service September 22, 2020 Assessment & Plan (1) Acute pancreatitis: Mr. Marie is an 89 yo gentleman who presented with acute onset R sided abdominal pain, found to have acute pancreatitis on admission. - Lipase elevated to 16,720. CT showing evidence of pancreatitis. - Etiology uncertain: - Gallstone induced is a possibility given concurrent gallbladder distention on CT along with cholestatic pattern (LFTs, ALk phos and conjugated hyperbilirubinemia). However no stones were visualized. Will order an MRCP to further characterize/assess for gallstone obstructing the pancreatic duct. Continue IV Zosyn. - No recent Etoh use (in many years) - Calcium level normal - will check a fasting TG level in am - no structural abnormalities noted of pancreas on CT - GI consult placed - General surgery consult placed - NPO - continue IV hydration - Morphine and Dilaudid prn for pain control - Zofran prn for nausea (2) Choledocholithiasis: - Gallbladder distention noted on CT. No gallstones visualized. - R factor 1.7; cholestatic pattern - concurrent acute pancreatitis would suggestive obstructive at or below the pancreatic duct - MCRP as above - continue IV zosyn (3) Pneumonia: - RLL consolidation noted on CXR - WBC elevated. SIRS criteria not met, patient not septic. - although patient was told his lungs were at baseline on 09/20/20, his new onset abdominal pain was likely prohibitive of deep inspiration --> atelectasis and stasis - Continue zosyn - supplemental O2 as needed - trend CBC (4) Leukocytosis: - WBC elevated to 13.6 with neutrophil predominance - etiology: RLL PNA vs. acute cholecystitis vs. multifactorial - continue IV zosyn (anaerobic coverage) - follow blood cultures - trend CBC (5) BPH with obstruction/lower urinary tract symptoms: - continue home flomax DVT ppx: Lovenox SQ Diet: NPO Dispo: Med/Surg with tele Code: full History of Present Illness Primary Care Provider: Michael Bain MD Mr. Marie is an 89 yo gentleman who presented to [facility] for evaluation of R flank pain. The discomfort started after eating dinner on 09/21/20. It initially was in the R flank, but radiates to the RLQ. It is worse with movement and deep inspiration. He endorsees one episode of emesis. No fevers/chills, no diarrhea, no cough, no SOB, no chest pain. He has never had pancreatitis in the past. No known history of gallbladder stones. Has not had alcohol in many years. Former smoker, quit 50 years ago. He saw his monkey breeder in the office on 09/20/20 and was told his lungs were at their baseline. Surg Hx: appendectomy In the ED, he was afebrile with normal HR. WBC elevated to 13.6. Remainder of CBC was normal. Blood cultures were drawn. Lactate was elevated to 2.2. INR was normal. Creatinine and electrolytes were WNL. T bili was elevated to 2.3, direct bili elevated to 1.2. AST elevated to 239, ALT to 107, Alk Phos to 187. Lipase elevated to 16,720. Trop 0.018. BNP 1852. EKG showing a junctional rhythm with occasional PVCs. CXR showing a RLL consolidation concerning for a PNA. Cat scan of abdomen and pelvis showing evidence of pancreatitis, no pseudocyst seen. Gallbladder appeared distended, but no radiodense stones were visualized. Patient was given a dose of IV zosyn, he was bolused with 1.5L of NSS, and given 0.5mg Dilaudid and 75 mcg fentanyl for pain control. Allergies Allergy/AdvReac Type Severity Reaction Status Date / Time Quinolones AdvReac Unknown NAUSEA/CHIL Verified 09/22/20 00:19 LS sulfamethoxazole AdvReac Unknown NAUSEA/CHIL Verified 09/22/20 00:19 LS trimethoprim AdvReac Unknown NAUSEA/CHIL Verified 09/22/20 00:19 LS WOOL Allergy Unknown ITCHING Uncoded 09/22/20 00:19 Home Medications Medication Instructions Recorded Confirmed Type cyanocobalamin (vitamin B-12) 1,000 mcg PO DAILY 12/17/18 09/22/20 History 1,000 mcg capsule alendronate 35 mg PO WK 09/22/20 09/22/20 History cholecalciferol (vitamin D3) 50 mcg PO BID 09/22/20 09/22/20 History [Vitamin D3] mirabegron [Myrbetriq] 25 mg PO QPM 09/22/20 09/22/20 History spironolacton-hydrochlorothiaz 1 tab PO QAM 09/22/20 09/22/20 History tamsulosin 0.4 mg PO DAILY 09/22/20 09/22/20 History Past Med/Surg History Medical History BPH with obstruction/lower urinary tract symptoms Social History Smoking Status: Former smoker Tobacco Type: Cigarettes Second Hand Exposure: No; Do You Dip or Chew Tobacco: No; Hx Alcohol Use: No Hx Substance Use: No Preferred Language: Welsh Communication Ability: Effective Beliefs That Will Affect Care: None marital status: Current Living Situation: Spouse How many Children do You have: 2 Feels Safe at Home: Yes Safety Concerns: Feels Safe At This Time Assistive Devices: Hearing Aid - Left Review of Systems Review of Systems: All systems reviewed & are unremarkable except as noted in HPI & below Physical Exam Constitutional: WD/WN, vitals as above + acute distress (mild, secondary to pain) and cooperative Eyes: + anicteric sclerae ENMT: external ear and nose normal, oropharynx normal Neck: normal visual inspection and trachea midline Respiratory: normal respiratory effort; no cough Auscultation: + crackles ( inspiratory, b/l bases) Cardiovascular: Rate/Rhythm: regular rate; + abnormal rhythm Heart Sounds: normal S1, normal S2 and + murmur Extremities: + pedal edema (+1 b/l) Gastrointestinal (Abdomen): Inspection/Auscultation: abdomen normal to inspection and normal bowel sounds; abdomen not distended Percussion/Palpation: + abdomen tender (epigatrium, RUQ, RLQ) and abdomen soft; no guarding Skin: no rashes, warm and dry Neurologic: moves all extremities Psychiatric: A+Ox3, euthymic affect Results & Data Results & Data ([facility]) Vital Signs (Past 12 Hours) Vital Signs Pulse Resp BP Pulse Ox 09/22/20 02:42 82 24 97/62 L 92 09/22/20 02:00 93 H 22 91/49 L 93 09/22/20 01:30 95 H 23 99/50 L 94 09/22/20 01:08 93 09/22/20 00:31 101 H 26 H 94 09/22/20 00:30 100 H 36 H 111/65 94 09/22/20 00:00 99 H 22 112/65 91 09/21/20 23:30 97 H 23 119/55 L 91 09/21/20 23:26 91 09/21/20 23:09 103 H 23 132/67 09/21/20 22:59 98 H 20 118/64 85 L Supervising Physician Co-Signing Physician Notes Attending addendum: I have physically seen this patient, have supervised the medical residents activities, and agree with the H&P unless as otherwise noted. Assessment and Plan: Acute pancreatitis- Lipase 16,721 admission, with abnormal appearing CT Gallbladder noted to be distended on CT, and LFT pattern consistent with possible gallbladder involvement Order MRCP Consult gastroenterology Consult general surgery N.p.o. Continue IV fluids Zofran 4 mg IV every 6 hours as needed Zosyn 4.5 g IV every 8 hours Famotidine 20 mg IV every 12 hours Morphine and Dilaudid as noted for pain control Remaining orders and notations as noted Resident Activity Tracking Resident Involvement: Resident Care Provided Care Provided: Adult Hospital Medicine
[2020-09-22] MEDS ORDERED: LACTATED RINGER'S 500 ML IV STA (04:53)
[2020-09-22] MEDS: SODIUM CHLORIDE 0.9% 1000ML 1,000 ML IV SCH ×3 (06:13→21:17)
--- NOTE | 2020-09-22 07:06 | Hospitalist Progress Note ---
Date of Service September 22, 2020 Assessment & Plan (1) Acute pancreatitis: 89 M w/ PMHx of BPH, valvular problems, abestos exposure, copd, who presented with acute onset R sided abdominal pain, found to have acute pancreatitis on admission. - Lipase elevated to 16,720. CT showing evidence of pancreatitis. - Etiology uncertain: - Gallstone induced is a possibility given concurrent gallbladder distention on CT along with cholestatic pattern (LFTs, ALk phos and conjugated hyperbilirubinemia). However no stones were visualized. Will order an MRCP to further characterize/assess for gallstone obstructing the pancreatic duct. Continue IV Zosyn. - No recent Etoh use (in many years) - Calcium level normal - will check a fasting TG level in am - no structural abnormalities noted of pancreas on CT - GI consult placed - General surgery consult placed - NPO - continue IV hydration - Morphine and Dilaudid prn for pain control - Zofran prn for nausea (2) Choledocholithiasis: - Gallbladder distention noted on CT. No gallstones visualized. - R factor 1.7; cholestatic pattern - concurrent acute pancreatitis would suggestive obstructive at or below the pancreatic duct - MCRP as above - continue IV zosyn (3) Pneumonia: - RLL consolidation noted on CXR - WBC elevated. SIRS criteria not met, patient not septic. - although patient was told his lungs were at baseline on 09/20/20, his new onset abdominal pain was likely prohibitive of deep inspiration --> atelectasis and stasis - Continue zosyn - supplemental O2 as needed - trend CBC (4) Leukocytosis: - WBC elevated to 13.6 with neutrophil predominance - etiology: RLL PNA vs. acute cholecystitis vs. multifactorial - continue IV zosyn (anaerobic coverage) - follow blood cultures - trend CBC (5) BPH with obstruction/lower urinary tract symptoms: - continue home flomax ppx: 40 mg sq lovenox held. famotidine 20 mg IV BID Diet: NPO. NSS 120ml/hr Dispo: Med/Surg with tele Code: full Admission and Anticipated Discharge Date Admission Date: September 22, 2020 Subjective Vx1 last night. No current n/v. Not on home ok. Lives w/ (detention since apr) currently, pain is not too bad. 07/31. No radiation. Main pain complaint today is RLQ. Mild mucus, did not spit it out. No cough. Sees Charla for COPD. 20+ years ppd. Review of Systems Review of Systems: Constitutional: Denies fever. mild chills last night. No blurry vision Cardiovascular: Denies chest pain, palpitations Respiratory: Denies shortness of breath Gastrointestinal: Denies abdominal pain, nausea, vomiting, constipation, diarrhea Genitourinary: Denies urinary symptoms including dysuria Musculoskeletal: Denies weakness, muscle aches/pain, joint aches/pain Neurological: Denies headache, numbness, tingling, focal weakness Physical Exam Physical Exam: General: Grossly A&O. NAD. Cooperative. HEENT: Atraumatic, normocephalic. Pulm: Mild inspiratory crackles on right. Slightly decreased breath sound RLL. No respiratory distress. Cardiac: RRR, -mrg. LE edema, 1+ left, 2+ right. Abdominal: RLQ and epigastric ttp. No rebound or guarding. Soft, nondistended. Results & Data Results & Data ([facility]) Vital Signs (Past 12 Hours) Vital Signs Temp Pulse Pulse Resp BP BP Pulse Ox 09/22/20 06:46 09/22/20 06:31 80 09/22/20 06:15 09/22/20 05:56 37.1 C 86 16 96/62 L 74 L 09/22/20 05:38 93 09/22/20 05:18 36.8 C 09/22/20 05:10 87/50 L 92 09/22/20 04:00 87/59 L 09/22/20 02:42 82 24 97/62 L 92 09/22/20 02:00 93 H 22 91/49 L 93 09/22/20 01:30 95 H 23 99/50 L 94 09/22/20 01:08 93 09/22/20 00:31 101 H 26 H 94 09/22/20 00:30 100 H 36 H 111/65 94 09/22/20 00:00 99 H 22 112/65 91 09/21/20 23:30 97 H 23 119/55 L 91 09/21/20 23:26 91 09/21/20 23:09 103 H 23 132/67 09/21/20 22:59 98 H 20 118/64 85 L Pulse Ox 09/22/20 06:46 93 09/22/20 06:31 09/22/20 06:15 92 09/22/20 05:56 09/22/20 05:38 74 L 09/22/20 05:18 09/22/20 05:10 09/22/20 04:00 09/22/20 02:42 09/22/20 02:00 09/22/20 01:30 09/22/20 01:08 09/22/20 00:31 09/22/20 00:30 09/22/20 00:00 09/21/20 23:30 09/21/20 23:26 09/21/20 23:09 09/21/20 22:59
--- NOTE | 2020-09-22 07:22 | XRay Report ---
XR chest 1V portable CLINICAL HISTORY: hypoxia COMPARISON STUDY: 08/15/2020 FINDINGS: The heart is enlarged. There is aortic tortuosity/ectasia. There is pulmonary emphysema. Th ere are scattered granulomatous calcifications. There is mild elevation of interstitium suggesting mi ld pulmonary vascular congestion. There are more focal airspace opacity at the right lung base, atele ctatic versus infectious/inflammatory.[ IMPRESSION: 1. Cardiomegaly and elevation of interstitium likely secondary to mild pulmonary vascular congestion/ fluid overload 2. Right basilar opacities, atelectatic versus infectious/inflammatory 3. Clinical and radiographic follow-up are recommended ACT 112: Negative or not required by law. Electronically signed by: David Dejesus M.D. 09/22/2020 7:21 AM
--- NOTE | 2020-09-22 07:33 | CT Scan Report ---
CT ANGIOGRAM OF THE CHEST CLINICAL HISTORY: Hypoxia, shortness of breath COMPARISON STUDY: Chest x-ray dated 09/21/2020, CT scan dated 10/12/2014 TECHNIQUE: Following the IV administration of 118 mL of Optiray, CT angiogram of the thorax was perfo rmed from the thoracic inlet to the lung bases utilizing the pulmonary embolus protocol. Images are r eviewed in the axial, sagittal, and coronal planes. IV contrast was administered without complication . MIP imaging was performed. A dose lowering technique was utilized adhering to the principles of AL SARAVANAN. CT DOSE: 1365.06 mGycm FINDINGS: No pathologically enlarged axillary mediastinal or hilar lymph nodes were visualized. There is mild ectasia of the ascending thoracic aorta which measures 37 mm. There is a small focal area of atherosclerotic plaque/thrombus within the proximal left subclavian ar doreen There were no pulmonary artery filling defects to indicate acute pulmonary embolism. There are bilateral pleural plaques with calcifications. There is mild subpleural reticulation. There are bibasilar airspace opacities, atelectatic versus inf ectious/inflammatory. Within the upper abdomen, there is infiltration of fat surrounding the pancreas and left adrenal glan d. This may indicate acute pancreatitis. IMPRESSION: 1. No evidence of acute pulmonary embolism 2. Bilateral calcified pleural plaques 3. Interstitial lung disease with subpleural reticulation 4. Bibasilar airspace opacities, likely atelectatic although an infectious/inflammatory process could appear similar 5. Infiltration of the fat surrounding the pancreas and left adrenal gland. Clinical correlation with regards to acute pancreatitis recommended ACT 112: Negative or not required by law. Electronically signed by: David Dejesus M.D. 09/22/2020 7:32 AM
[2020-09-22] MEDS: PIPERACILLIN/TAZOBACTAM 3.375 GM in DEXTROSE 5% 100 ML IV SCH ×3 (07:46→23:04)
--- NOTE | 2020-09-22 08:10 | CT Scan Report ---
CT abd pelvis IV con only CLINICAL HISTORY: Right flank pain COMPARISON STUDY: 09/04/2015 TECHNIQUE: The patient was scanned in a dynamic helical fashion during intravenous administration of 118 cc of Optiray 320 A dose lowering technique was utilized adhering to the principles of ALARA. CT DOSE: FINDINGS: Lower chest: The heart is enlarged. There are coronary artery calcifications. There are bilateral linda cified pleural plaques. There are bibasilar airspace opacities, likely atelectatic although an infect ious/inflammatory processes could appear similar. Liver: There is periportal edema, likely secondary to aggressive hydration. Gallbladder: The gallbladder is distended with borderline wall thickening. There is trace pericholecy stic fluid. There is an equivocal common bile duct filling defect. GI consultation is recommended in follow-up. MRCP/ERCP should be considered. Spleen: Normal in size and attenuation. Pancreas: There is no pancreatic ductal dilatation. There is fluid/edema inferior to the pancreas and adjacent the pancreatic head. Clinical correlation with regards to pancreatitis recommended. Adrenal glands: Unremarkable. Kidneys: There is 16mm left renal cortical cyst. No solid renal masses are visualized. There is no hy dronephrosis Bowel: There are no transition zone to indicate bowel obstruction. There is extensive colonic diverti culosis. There are no acute peridiverticular inflammatory changes. By history the appendix is surgica lly absent. Peritoneum: There is minimal peritoneal fluid. There is no free intraperitoneal air. There is a fat-c ontaining periumbilical hernia. Vasculature: The abdominal aorta is normal in course and caliber. Adenopathy: None. Pelvic viscera: There is bladder wall thickening. There is a bladder diverticulum. Skeletal structures: No destructive skeletal lesions are visualized. There is severe L1 compression f racture with minimal retropulsion. This is likely old. There is a superior endplate L3 compression fr acture likely old. IMPRESSION: 1. Distended gallbladder with borderline wall thickening. There is possible increased intraluminal pr essure. Clinical correlation with regards to cholecystitis recommended 2. Probable small distal common bile duct filling defect, concerning for choledocholithiasis.. GI con sultation and consideration of ERCP/MRCP recommended 3. Fluid surrounding the inferior margin the pancreas and pancreatic head extending into the mesenter y. Clinical correlation with regards to acute pancreatitis recommended. 4. Extensive colonic diverticulosis. No current evidence of acute diverticulitis 5. Fat-containing periumbilical hernia 6. Bladder wall thickening and trabeculation. Bladder diverticulum. ACT 112: Negative or not required by law. Electronically signed by: David Dejesus M.D. 09/22/2020 8:09 AM
[2020-09-22] MEDS ORDERED: CALCIUM CARBONATE 500 MG CHEWABLE TAB PO STA (08:17)
--- NOTE | 2020-09-22 08:22 | Surgery Consultation ---
Date of Consultation September 22, 2020 Assessment & Plan (1) Acute pancreatitis: No gallstones by CT, ? sludge. Await MRCP and AM labs. will follow for possible lap rosa once pancreatitis resolves. Continue Zosyn, hold Lovenox. Supervising Physician Co-Signing Physician Notes Patient seen and examined, labs and imaging reviewed, agree with above. 89-year-old male with pancreatitis and obstructive pattern on labs, no d efinitive stones on ultrasound. MRCP today did reveal choledocholithiasis. On exam he is mildly tachycardic with otherwise stable vitals. He is afebrile. On exam he is tender to palpation in the epigastrium and right upper quadrant, specifically with guarding in the right upper quadrant. Labs show elevated lipase, hyperbilirubinemia and transaminitis, and WBC 24,000. I personally reviewed the MRCP and agreed with the finding of a distal common duct stone. He also had blood cultures that showed gram-negative bacilli. Choledocholithiasis with likely cholangitis GI to perform ERCP Plan for laparoscopic cholecystectomy with possible cholangiogram under the same anesthetic Risks of the procedure were discussed to include but not limited to bleeding, infection, retained stone, bile leak, damage surrounding structures, need for future more extensive surgery, conversion open, and the risk of anesthesia Diagnosis, details the procedure recovery, and plan of care discussed the patient, all questions were answered, the patient expressed understanding agrees with plan of care as stated History of Present Illness Attending Physician: Tara Beyer MD History of Present Illness 89 y/o male with abdominal pain mostly RUQ began after dinner last night. Has not had any similar attacks, has been having heartburn recently and taking TUMS. Feels better this morning. No nausea, bloating or back pain. H/o left inguinal hernia repair by Dr. Hopper Allergies Allergy/AdvReac Type Severity Reaction Status Date / Time Quinolones AdvReac Unknown NAUSEA/CHIL Verified 09/22/20 00:19 LS sulfamethoxazole AdvReac Unknown NAUSEA/CHIL Verified 09/22/20 00:19 LS trimethoprim AdvReac Unknown NAUSEA/CHIL Verified 09/22/20 00:19 LS WOOL Allergy Unknown ITCHING Uncoded 09/22/20 00:19 Home Medications Medication Instructions Recorded Confirmed Type cyanocobalamin (vitamin B-12) 1,000 mcg PO DAILY 12/17/18 09/22/20 History 1,000 mcg capsule alendronate 35 mg PO WK 09/22/20 09/22/20 History cholecalciferol (vitamin D3) 50 mcg PO BID 09/22/20 09/22/20 History [Vitamin D3] mirabegron [Myrbetriq] 25 mg PO QPM 09/22/20 09/22/20 History spironolacton-hydrochlorothiaz 1 tab PO QAM 09/22/20 09/22/20 History tamsulosin 0.4 mg PO DAILY 09/22/20 09/22/20 History Patient History Medical History BPH with obstruction/lower urinary tract symptoms Social History Smoking Status: Former smoker Tobacco Type: Cigarettes Second Hand Exposure: No; Do You Dip or Chew Tobacco: No; Hx Alcohol Use: No Hx Substance Use: No Preferred Language: Latvian Communication Ability: Effective Beliefs That Will Affect Care: None marital status: Current Living Situation: Spouse How many Children do You have: 2 Feels Safe at Home: Yes Safety Concerns: Feels Safe At This Time Assistive Devices: Hearing Aid - Left Review of Systems Constitutional: no fever and no chills Cardiovascular: no chest pain and no dyspnea Gastrointestinal: + abdominal pain, + nausea and + vomiting (x1) Physical Exam Constitutional: WD/WN, vitals as above Respiratory: normal respiratory effort, lungs clear to auscultation Cardiovascular: RRR, no murmur, no edema Gastrointestinal (Abdomen): Inspection/Auscultation: abdomen not distended Percussion/Palpation: + abdomen tender (mild RUQ) and abdomen soft Results & Data ([facility]) Vital Signs (Past 12 Hours) Vital Signs Temp Pulse Pulse Resp BP BP Pulse Ox 09/22/20 06:46 09/22/20 06:31 80 09/22/20 06:15 09/22/20 05:56 37.1 C 86 16 96/62 L 74 L 09/22/20 05:38 93 09/22/20 05:18 36.8 C 09/22/20 05:10 87/50 L 92 09/22/20 04:00 87/59 L 09/22/20 02:42 82 24 97/62 L 92 09/22/20 02:00 93 H 22 91/49 L 93 09/22/20 01:30 95 H 23 99/50 L 94 09/22/20 01:08 93 09/22/20 00:31 101 H 26 H 94 09/22/20 00:30 100 H 36 H 111/65 94 09/22/20 00:00 99 H 22 112/65 91 09/21/20 23:30 97 H 23 119/55 L 91 09/21/20 23:26 91 09/21/20 23:09 103 H 23 132/67 09/21/20 22:59 98 H 20 118/64 85 L Pulse Ox 09/22/20 06:46 93 09/22/20 06:31 09/22/20 06:15 92 09/22/20 05:56 09/22/20 05:38 74 L 09/22/20 05:18 09/22/20 05:10 09/22/20 04:00 09/22/20 02:42 09/22/20 02:00 09/22/20 01:30 09/22/20 01:08 09/22/20 00:31 09/22/20 00:30 09/22/20 00:00 09/21/20 23:30 09/21/20 23:26 09/21/20 23:09 09/21/20 22:59 PG Care Time/CCT Total # of Minutes Spent Total Time Spent with Patient: Total time spent is greater than 50% in coordination of care (as documented) at patient's floor/unit and/or counseling patient: Coding Level of Care Code 35084 Initial Inpt Care Lvl 1 Diagnoses Acute pancreatitis K85.00 Acute pancreatitis complication: no infection or necrosis Pancreatitis type: idiopathic (1) Acute pancreatitis Acute pancreatitis complication: no infection or necrosis Pancreatitis type: idiopathic Qualified Code(s): K85.00 - Idiopathic acute pancreatitis without necrosis or infection
[2020-09-22] MEDS ORDERED: ENOXAPARIN INJ 40 MG/0.4 ML SYR SQ SCH (09:00)
[2020-09-22] MEDS ORDERED: SPIRONOLACTONE/HCTZ 25-25 PO SCH (09:00)
[2020-09-22 09:19] LABS: Hemoglobin 13.2 g/dL (14.0-18.0); Mean Corpuscular Hemoglobin 31.7 pg (25-34); Mean Corpuscular Hgb Conc 32.2 g/dL (32-36); Mean Corpuscular Volume 98.6 fL (80-100); Platelet Count 116 K/uL (130-400); RDW Coefficient of Variation 14.1 % (11.5-14.5); RDW Standard Deviation 50.5 fL (36.4-46.3); Red Blood Count 4.16 M/uL (4.7-6.1); White Blood Count 24.45 K/uL (4.8-10.8)
[2020-09-22 09:34] LABS: Albumin Level 3.1 gm/dl (3.4-5.0); BUN Creatinine Ratio 16.2 (10-20); Calcium 8.5 mg/dl (8.5-10.1); Creatinine Clr Calc Pharmacy 44.8 ml/min; Est GFR (African American) 59.2 ml/min; Est GFR (Non-African American) 51.1 ml/min; Potassium 3.6 mmol/L (3.5-5.1)
[2020-09-22 09:37] LABS: Bilirubin,Total 2.8 mg/dl (0.2-1); Globulin 3.1 gm/dl (2.5-4.0); Total Protein 6.2 gm/dl (6.4-8.2)
[2020-09-22] MEDS ORDERED: FAMOTIDINE 10 MG in SYRINGE 4 ML IV ONE (09:45)
[2020-09-22 09:46] LABS: Basophils # (auto) 0.01 K/uL (0-0.2); Immature Granulocytes # (auto) 0.08 K/uL (0.00-0.02); Immature Granulocytes % (auto) 0.3 %; Lymphocytes # (auto) 0.44 K/uL (1.2-3.4); Lymphocytes % (auto) 1.8 %; Monocytes # (auto) 1.41 K/uL (0.11-0.59); Monocytes % (auto) 5.8 %; Neutrophils # (auto) 22.51 K/uL (1.4-6.5); Neutrophils % (auto) 92.1 %
--- NOTE | 2020-09-22 10:20 | Gastrointestinal Consultation ---
Date of Consultation September 22, 2020 Assessment & Plan (1) Acute pancreatitis: Suspect gallstone pancreatitis -Continue NPO status -IV pain control per primary team -IV fluid hydration per primary team (2) Acute cholecystitis: -Treatment per general surgery -There is a concern for choledocholithiasis. Will await MRCP results. May need to involve [facility] for possible ERCP pending results of this study. -Continue to trend LFTs -Continue IV Zosyn per primary team Thank you for allowing us to participate in the care of this patient. If you should have any further questions or concerns, do not hesitate to contact us at extension [phone] or [phone]. Supervising Physician Co-Signing Physician Notes Agree with RICO Barth as above Abd: Soft, Tender RUQ, ND, +BS MRCP reviewed with evidence of distal CBD stone Will undergo ERCP with Dr. Duran today Discussed case with Dr. Duran and Dr. Pickett of Surgery History of Present Illness Reason for Consultation: Pancreatitis due to possible gallstone Attending Physician: Tara Beyer MD History of Present Illness Patient is an 89 yo male with a PMH of mitral and aortic insufficiency, mitral stenosis, and spondylosis. He presented to the hospital with complaints of right sided pain. He was noted to have pancreatitis on a CT scan with gallbladder with distention, thickening and concern for cholecystitis. There was a CBD filling defect concerning for choledocholithiasis. CT also indicated acute pancreatitis. Patient's WBC count is elevated at 13,600. Lactate acid elevated at the tie of admission along iwth a Lipase of 16,720. T Bili 2.3, D Bili 1.2, AST 239, ALT 107, Alk phos 187. CXR shows a concern for a RLL PNA. Patient is currently on Zosyn. An MRCP is pending at the time of my visit. Patient notes that his abdominal pain is significantly improved at the time of the visit, but does remain. He denies bowel habit changes. No pertinent family history. Allergies Allergy/AdvReac Type Severity Reaction Status Date / Time Quinolones AdvReac Unknown NAUSEA/CHIL Verified 09/22/20 00:19 LS sulfamethoxazole AdvReac Unknown NAUSEA/CHIL Verified 09/22/20 00:19 LS trimethoprim AdvReac Unknown NAUSEA/CHIL Verified 09/22/20 00:19 LS WOOL Allergy Unknown ITCHING Uncoded 09/22/20 00:19 Home Medications Medication Instructions Recorded Confirmed Type cyanocobalamin (vitamin B-12) 1,000 mcg PO DAILY 12/17/18 09/22/20 History 1,000 mcg capsule alendronate 35 mg PO WK 09/22/20 09/22/20 History cholecalciferol (vitamin D3) 50 mcg PO BID 09/22/20 09/22/20 History [Vitamin D3] mirabegron [Myrbetriq] 25 mg PO QPM 09/22/20 09/22/20 History spironolacton-hydrochlorothiaz 1 tab PO QAM 09/22/20 09/22/20 History tamsulosin 0.4 mg PO DAILY 09/22/20 09/22/20 History Patient History Medical History BPH with obstruction/lower urinary tract symptoms Social History Smoking Status: Former smoker Tobacco Type: Cigarettes Second Hand Exposure: No; Do You Dip or Chew Tobacco: No; Hx Alcohol Use: No Hx Substance Use: No Preferred Language: Ugandan Communication Ability: Effective Beliefs That Will Affect Care: None marital status: Current Living Situation: Spouse How many Children do You have: 2 Feels Safe at Home: Yes Safety Concerns: Feels Safe At This Time Review of Systems Constitutional: no fever and no chills Respiratory: no cough and no dyspnea Cardiovascular: no chest pain Gastrointestinal: + abdominal pain; no nausea, no vomiting, no diarrhea/loose stools and no blood in stools Psychiatric: no problem reported Physical Exam Constitutional: well developed Neck: normal visual inspection Respiratory: normal respiratory effort Cardiovascular: Extremities: no edema Gastrointestinal (Abdomen): Inspection/Auscultation: normal bowel sounds Percussion/Palpation: + abdomen tender and abdomen soft Musculoskeletal: Head/Neck/Chest: normocephalic Psychiatric: A+Ox3, euthymic affect Results & Data ([facility]) Vital Signs (Past 12 Hours) Vital Signs Temp Pulse Pulse Resp BP BP Pulse Ox 09/22/20 07:33 36.6 C 76 18 95/56 L 91 09/22/20 06:46 09/22/20 06:31 80 09/22/20 06:15 07/02/21 05:56 37.1 C 86 16 96/62 L 74 L 09/22/20 05:38 93 09/22/20 05:18 36.8 C 09/22/20 05:10 87/50 L 92 09/22/20 04:00 87/59 L 09/22/20 02:42 82 24 97/62 L 92 09/22/20 02:00 93 H 22 91/49 L 93 09/22/20 01:30 95 H 23 99/50 L 94 09/22/20 01:08 93 09/22/20 00:31 101 H 26 H 94 09/22/20 00:30 100 H 36 H 111/65 94 09/22/20 00:00 99 H 22 112/65 91 09/21/20 23:30 97 H 23 119/55 L 91 09/21/20 23:26 91 09/21/20 23:09 103 H 23 132/67 09/21/20 22:59 98 H 20 118/64 85 L Pulse Ox 09/22/20 07:33 09/22/20 06:46 93 09/22/20 06:31 09/22/20 06:15 92 09/22/20 05:56 09/22/20 05:38 74 L 09/22/20 05:18 09/22/20 05:10 09/22/20 04:00 09/22/20 02:42 09/22/20 02:00 09/22/20 01:30 09/22/20 01:08 09/22/20 00:31 09/22/20 00:30 09/22/20 00:00 09/21/20 23:30 09/21/20 23:26 09/21/20 23:09 09/21/20 22:59 PG Care Time/CCT Total # of Minutes Spent Total Time Spent with Patient: Total time spent is greater than 50% in coordination of care (as documented) at patient's floor/unit and/or counseling patient: Coding Level of Care Code 74026 Initial Inpt Care Lvl 3 Diagnoses Acute pancreatitis K85.10 Acute pancreatitis complication: unspecified Pancreatitis type: biliary Acute cholecystitis K81.0 (1) Acute pancreatitis Acute pancreatitis complication: unspecified Pancreatitis type: biliary Qualified Code(s): K85.10 - Biliary acute pancreatitis without necrosis or infection
--- NOTE | 2020-09-22 13:37 | Medical Student Progress Note ---
Date of Service September 22, 2020 Assessment & Plan (1) Acute pancreatitis: Dakotah Marie is a 89 y/o male w/ PMHx of BPH, asbestos exposure, and COPD who presented with acute onset R sided abdominal pain, found to have acute gallstone pancreatitis. Acute gallstone pancreatitis, status post ERCP Initial workup: elevated lipase, LFTs, direct bili in addition to CT evidence of pancreatitis and gallbladder distension concerning for acute pancreatitis in setting of choledocholithiasis - s/p 1.5L NSS bolus in ED - GI and gen surg consulted -dilation, but no stone noted on CT abd - MRCP: confirmed choledocholithiasis - ERCP (09/22): 10mm stone removed. 2 biliary stents placed into common bile duct. findings consistent w/ choledocholithiasis and cholangitis. - Continue IV hydration, currently at maintenance rate 125ml/hr. Caution taken because of possible pulm edema noted in cxr at admission - Continue pain and nausea control w/ Dilaudid and Zofran Bacteremia - Elevated WBC, preliminary blood cultures positive for gram negative bacilli - continue IV Zosyn low blood pressures - borderline. 80s/~50s this AM - may be from septic-like presentation from bacteremia - home antihypertensives held New O2 requirement in setting of chronic obstructive pulmonary disease - CXR evidence of bibasilar airspace opacities may be fluid vs atelectasis. R lower lobe opacity also noted raising concern for possible pneumonia. Pleural plaques and interstitial disease also noted. - Zosyn as above would also cover pneumonia if present - supplemental O2 as needed - no home inhalers. can add neb treatments if needed, defer at this time as there is no wheezing or subjective SOB Choledocholithiasis and cholecystitis - as per above BPH with obstruction/lower urinary tract symptoms: - Hold home flomax ppx: 40 mg sq lovenox famotidine 20 mg IV BID Fluids: NSS 120 mls/ hr Diet: NPO Dispo: ICU Code: full Acute pancreatitis complication: unspecified Pancreatitis type: biliary Qualified Code(s): K85.10 - Biliary acute pancreatitis without necrosis or infection (2) Acute pancreatitis: Acute pancreatitis complication: no infection or necrosis Pancreatitis type: idiopathic Qualified Code(s): K85.00 - Idiopathic acute pancreatitis without necrosis or infection (3) Acute cholecystitis: (4) Chronic obstructive pulmonary disease: Admission and Anticipated Discharge Date Admission Date: September 22, 2020 Subjective Having symptoms of acid reflux this morning and requests something to treat. Has 5/10 abdominal pain. Denies nausea/ vomiting. Last BM yesterday. Review of Systems Review of Systems: All systems reviewed & are unremarkable except as noted in HPI & below Denies headache, chest pain, palpitations, shortness of breath, diarrhea Endorses 5/10 abdominal pain Physical Exam Physical Exam: GENERAL: nad and cooperative HEENT: conjunctiva without injection b/l, oropharynx moist, no erythem a,external nose and pinna are normal CHEST: mild crackles R lower lobe, no wheezes, normal respiratory effort CARDIOVASCULAR: heart regular rate and rhythm, no murmurs, gallops or rubs, no lower extremity edema ABD: tender to palpation across epigastrium and right upper and lower abdomen, no hepatosplenomegaly or masses, nondistended, normal active bowel sounds SKIN: no rashes or suspicious lesions noted NEURO: PERRLA, alert and oriented x 3 Results & Data ([facility]) Vital Signs (Past 12 Hours) Vital Signs Temp Pulse Pulse Resp BP BP Pulse Ox 09/22/20 12:36 36.6 C 85 20 113/65 95 09/22/20 07:33 36.6 C 76 18 95/56 L 91 09/22/20 06:46 09/22/20 06:31 80 09/22/20 06:15 09/22/20 05:56 37.1 C 86 16 96/62 L 74 L 09/22/20 05:38 93 09/22/20 05:18 36.8 C 09/22/20 05:10 87/50 L 92 09/22/20 04:00 87/59 L 09/22/20 02:42 82 24 97/62 L 92 09/22/20 02:00 93 H 22 91/49 L 93 09/22/20 01:30 95 H 23 99/50 L 94 Pulse Ox 09/22/20 12:36 09/22/20 07:33 09/22/20 06:46 93 09/22/20 06:31 09/22/20 06:15 92 09/22/20 05:56 09/22/20 05:38 74 L 09/22/20 05:18 09/22/20 05:10 09/22/20 04:00 09/22/20 02:42 09/22/20 02:00 09/22/20 01:30 Laboratory Results lactate 2.3, ast, alt, alk phos low 100s. TG wnl. Lipase 16.7k->7.5k Resident Activity Tracking Resident Involvement: Resident Care Provided Care Provided: [facility] Medicine Addendum (Blank) Addendum September 22, 2020 20:07 I interviewed and examined the patient alongside Lana Junior (medical student) and verified/reviewed labs and imaging studies and agree with the findings and plan above. - Negro Licona (resident) Attending Physicain Medical Student Supervision Note: I independently interviewed and examined the patient and verified the lyles history and physical, reviewed labs and image studies, discussed the case with the medical student Lana Junior and the Resident physician Dr. Licona and agree with the findings and care plan. Acute respiratory failure with hypoxia e/b calculated P/F ration of 180 on 4 L NC, tachycardia, & tachypnea - likely sec to splinting from pain due to pancreatitis - continue NC O2. Sepsis POA sec to acute pancreatitis with bacteremia- see management as above
--- NOTE | 2020-09-22 14:50 | Magnetic Resonance Report ---
MRCP CLINICAL HISTORY: Pancreatitis. COMPARISON STUDY: Abdominal CT dated 09/22/2020. TECHNIQUE: Abdominal MRCP is performed utilizing various T2-weighted sequences in the axial and coron al planes. IV contrast was not administered for this examination. 3-D reformats are created and asses sed. The examination is significantly compromised by motion artifact. FINDINGS: The gallbladder is distended. The gallbladder wall is thickened and edematous and there is pericholec ystic inflammation and fluid. Findings are typical for acute cholecystitis. The common bile duct is d ilated measuring up to 10 mm diameter. There is a 7 mm filling defect in the distal common bile duct above the ampulla, best seen on coronal image 107 consistent with choledocholithiasis. There is mild intrahepatic biliary ductal dilatation. The pancreatic duct is normal in caliber. The unenhanced liver is grossly unremarkable noting periportal edema. The unenhanced spleen and adren al glands are normal as imaged. The kidneys demonstrate cortical atrophy and are without hydronephros is. Cortical and parapelvic cysts on the left measure up to 1.7 cm. The abdominal aorta is ectatic no ting atherosclerotic plaque and irregularity. There is no evidence of bowel obstruction. There is a s mall volume of upper abdominal ascites. Inflammatory change and fluid is seen around the pancreatic h ead. There are small pleural effusions with airspace consolidation at the lung bases. The heart is en larged noting a small pericardial effusion. No destructive bony process is identified. IMPRESSION: 1. There is a 7 mm filling defect within the distal common bile duct consistent with choledocholithia sis. There is associated intra- and extrahepatic biliary ductal dilatation. 2. Findings are consistent with acute cholecystitis. 3. Inflammatory change and fluid around the pancreatic head may represent pancreatitis as clinically suspected. 4. There is a small volume of upper abdominal ascites. 5. Trace pleural effusions with bibasilar consolidation. Correlate clinically for evidence of pneumon ia/aspiration pneumonitis. 6. Cardiomegaly and small pericardial effusion. 7. Additional findings as above. Dictated: 09/22/2020 1:55 PM Transcribed: 09/22/2020 2:43 PM Suzanne [id number] dimas Electronically signed by: Dean Mccall M.D. 09/22/2020 2:49 PM
--- NOTE | 2020-09-22 15:26 | Electrocardiogram Report ---
Test Reason : Blood Pressure : / mmHG Vent. Rate : 100 BPM Atrial Rate : 100 BPM P-R Int : 000 ms QRS Dur : 112 ms QT Int : 368 ms P-R-T Axes : 000 -22 062 degrees QTc Int : 474 ms suspect Atrial flutter with 2 to 1 block with occasional Premature ventricular complexes Nonspecific ST and T wave abnormality Abnormal ECG When compared with ECG of 13-MAY-2017 15:24, Atrial flutter has replaced Sinus rhythm Nonspecific T wave abnormality now evident in Lateral leads Confirmed by Mack Turner ([id number]) on 09/22/2020 3:26:25 PM Referred By: REFERRED SELF Confirmed By:Mack Turner
--- NOTE | 2020-09-22 16:16 | History & Physical Report ---
Date of Service September 22, 2020 Assessment & Plan (1) Choledocholithiasis: Patient with a history of abdominal pain and finding concerning for cholangitis given the leukocytosis and elevated liver tests. ERCP has been requested by Dr. Stinson with [facility], I have discussed the risks to include bleeding, infection, perforation, pain, infection, failed cannulation, and pancreatitis. Plan ERCP today Continue antibiotic coverage (14 days recommmended) Admission and Anticipated Discharge Date Admission Date: September 22, 2020 History of Present Illness Chief Complaint: suspected cholangitis Primary Care Provider: Michael Bain MD 89 year old male presented with pain now with inceased leukocytosis and elevated liver tests found to have a positive MRCP. Allergies Allergy/AdvReac Type Severity Reaction Status Date / Time Quinolones AdvReac Unknown NAUSEA/CHIL Verified 09/22/20 00:19 LS sulfamethoxazole AdvReac Unknown NAUSEA/CHIL Verified 09/22/20 00:19 LS trimethoprim AdvReac Unknown NAUSEA/CHIL Verified 09/22/20 00:19 LS WOOL Allergy Unknown ITCHING Uncoded 09/22/20 00:19 Home Medications Medication Instructions Recorded Confirmed Type cyanocobalamin (vitamin B-12) 1,000 mcg PO DAILY 12/17/18 09/22/20 History 1,000 mcg capsule alendronate 35 mg PO WK 09/22/20 09/22/20 History cholecalciferol (vitamin D3) 50 mcg PO BID 09/22/20 09/22/20 History [Vitamin D3] mirabegron [Myrbetriq] 25 mg PO QPM 09/22/20 09/22/20 History spironolacton-hydrochlorothiaz 1 tab PO QAM 09/22/20 09/22/20 History tamsulosin 0.4 mg PO DAILY 09/22/20 09/22/20 History Past Med/Surg History Medical History BPH with obstruction/lower urinary tract symptoms Social History Smoking Status: Former smoker Tobacco Type: Cigarettes Second Hand Exposure: No; Do You Dip or Chew Tobacco: No; Hx Alcohol Use: No Hx Substance Use: No Preferred Language: Finnish Communication Ability: Effective Beliefs That Will Affect Care: None marital status: Current Living Situation: Spouse How many Children do You have: 2 Feels Safe at Home: Yes Safety Concerns: Feels Safe At This Time Assistive Devices: Hearing Aid - Left Physical Exam Constitutional: well nourished and + ill appearing; no acute distress Eyes: + scleral abnormality Respiratory: no respiratory distress and no retractions Cardiovascular: Heart Sounds: no murmur Gastrointestinal (Abdomen): Percussion/Palpation: + abdomen tender; no guarding and abdomen not rigid Results & Data ([facility]) Vital Signs (Past 12 Hours) Vital Signs Temp Pulse Pulse Resp BP BP BP 09/22/20 15:45 36.8 C 81 22 107/64 09/22/20 12:36 36.6 C 85 20 113/65 09/22/20 07:33 36.6 C 76 18 95/56 L 09/22/20 06:46 09/22/20 06:31 80 09/22/20 06:15 09/22/20 05:56 37.1 C 86 16 96/62 L 09/22/20 05:38 09/22/20 05:18 36.8 C 09/22/20 05:10 87/50 L Pulse Ox Pulse Ox 09/22/20 15:45 97 09/22/20 12:36 95 09/22/20 07:33 91 09/22/20 06:46 93 09/22/20 06:31 09/22/20 06:15 92 09/22/20 05:56 74 L 09/22/20 05:38 93 74 L 09/22/20 05:18 09/22/20 05:10 92 Laboratory Results Laboratory Results - last 24 hr 09/21/20 09/21/20 09/21/20 23:15 23:15 23:15 WBC 13.60 H RBC 4.70 Hgb 15.0 Hct 45.3 MCV 96.4 MCH 31.9 MCHC 33.1 RDW Std Deviation 48.3 H RDW Coeff of Andre 13.7 Plt Count 120 L MPV 11.5 H Immature Gran % (Auto) 0.4 Neut % (Auto) 90.7 Lymph % (Auto) 7.4 [place] % (Auto) 1.1 Eos % (Auto) 0.4 Baso % (Auto) 0.0 Neut # (Auto) 12.34 H Lymph # (Auto) 1.01 L [place] # (Auto) 0.15 Eos # (Auto) 0.05 Baso # (Auto) 0.00 Immature Gran # (Auto) 0.05 H PT 11.0 INR 1.1 Sodium 138 Potassium 3.5 Chloride 104 Carbon Dioxide 25 Anion Gap 9.0 BUN 19 H Creatinine 1.15 Est Cr Clr Drug Dosing Not Reportable Est GFR ( Amer) 65.5 Est GFR (Non-Af Amer) 56.5 BUN/Creatinine Ratio 16.9 Glucose 92 Lactate Calcium 9.5 Magnesium 2.0 Total Bilirubin 2.3 H Direct Bilirubin 1.2 H AST 239 H ALT 107 H Alkaline Phosphatase 187 H Troponin I 0.018 NT-Pro-B Natriuret Pep 1852 H Total Protein 7.7 Albumin 3.9 Globulin Albumin/Globulin Ratio Triglycerides Lipase 54095 H Urine Color Urine Appearance Urine pH Ur Specific [place] Urine Protein Urine Glucose (UA) Urine Ketones Urine Blood Urine Nitrite Urine Bilirubin Urine Urobilinogen Ur Leukocyte Esterase Urine WBC (Auto) Urine RBC (Auto) U Hyaline Cast (Auto) U Epithel Cells (Auto) Urine Bacteria (Auto) COVID-19 Eval Order SARS-CoV-2 (PCR) 09/22/20 09/22/20 09/22/20 01:35 01:35 01:46 WBC RBC Hgb Hct MCV MCH MCHC RDW Std Deviation RDW Coeff of Andre Plt Count MPV Immature Gran % (Auto) Neut % (Auto) Lymph % (Auto) [place] % (Auto) Eos % (Auto) Baso % (Auto) Neut # (Auto) Lymph # (Auto) [place] # (Auto) Eos # (Auto) Baso # (Auto) Immature Gran # (Auto) PT INR Sodium Potassium Chloride Carbon Dioxide Anion Gap BUN Creatinine Est Cr Clr Drug Dosing Est GFR ( Amer) Est GFR (Non-Af Amer) BUN/Creatinine Ratio Glucose Lactate 2.2 H* Calcium Magnesium Total Bilirubin Direct Bilirubin AST ALT Alkaline Phosphatase Troponin I NT-Pro-B Natriuret Pep Total Protein Albumin Globulin Albumin/Globulin Ratio Triglycerides Lipase Urine Color Urine Appearance Urine pH Ur Specific [place] Urine Protein Urine Glucose (UA) Urine Ketones Urine Blood Urine Nitrite Urine Bilirubin Urine Urobilinogen Ur Leukocyte Esterase Urine WBC (Auto) Urine RBC (Auto) U Hyaline Cast (Auto) U Epithel Cells (Auto) Urine Bacteria (Auto) COVID-19 Eval Order Covid19 at [facility] SARS-CoV-2 (PCR) NEGATIVE 09/22/20 09/22/20 09/22/20 02:45 05:49 08:57 WBC 24.45 H D RBC 4.16 L Hgb 13.2 L Hct 41.0 L MCV 98.6 MCH 31.7 MCHC 32.2 RDW Std Deviation 50.5 H RDW Coeff of Andre 14.1 Plt Count 116 L MPV 11.0 H Immature Gran % (Auto) 0.3 Neut % (Auto) 92.1 Lymph % (Auto) 1.8 [place] % (Auto) 5.8 Eos % (Auto) 0.0 Baso % (Auto) 0.0 Neut # (Auto) 22.51 H Lymph # (Auto) 0.44 L [place] # (Auto) 1.41 H Eos # (Auto) 0.00 Baso # (Auto) 0.01 Immature Gran # (Auto) 0.08 H PT INR Sodium Potassium Chloride Carbon Dioxide Anion Gap BUN Creatinine Est Cr Clr Drug Dosing Est GFR ( Amer) Est GFR (Non-Af Amer) BUN/Creatinine Ratio Glucose Lactate 2.3 H* Calcium Magnesium Total Bilirubin Direct Bilirubin AST ALT Alkaline Phosphatase Troponin I NT-Pro-B Natriuret Pep Total Protein Albumin Globulin Albumin/Globulin Ratio Triglycerides Lipase Urine Color Dark Yellow Urine Appearance Clear Urine pH 6.0 Ur Specific [place] > 1.045 H Urine Protein Trace H Urine Glucose (UA) Negative Urine Ketones Negative Urine Blood Negative Urine Nitrite Negative Urine Bilirubin 1+ H Urine Urobilinogen Negative Ur Leukocyte Esterase Negative Urine WBC (Auto) 1-5 Urine RBC (Auto) 0-4 U Hyaline Cast (Auto) 0 U Epithel Cells (Auto) 0-5 Urine Bacteria (Auto) Negative COVID-19 Eval Order SARS-CoV-2 (PCR) 09/22/20 09/22/20 08:57 08:57 WBC RBC Hgb Hct MCV MCH MCHC RDW Std Deviation RDW Coeff of Andre Plt Count MPV Immature Gran % (Auto) Neut % (Auto) Lymph % (Auto) [place] % (Auto) Eos % (Auto) Baso % (Auto) Neut # (Auto) Lymph # (Auto) [place] # (Auto) Eos # (Auto) Baso # (Auto) Immature Gran # (Auto) PT INR Sodium 140 Potassium 3.6 Chloride 108 H Carbon Dioxide 25 Anion Gap 7.0 BUN 20 H Creatinine 1.25 Est Cr Clr Drug Dosing 44.8 Est GFR ( Amer) 59.2 Est GFR (Non-Af Amer) 51.1 BUN/Creatinine Ratio 16.2 Glucose 105 H Lactate Calcium 8.5 Magnesium Total Bilirubin 2.8 H Direct Bilirubin AST 134 H ALT 109 H Alkaline Phosphatase 134 H Troponin I NT-Pro-B Natriuret Pep Total Protein 6.2 L Albumin 3.1 L Globulin 3.1 Albumin/Globulin Ratio 1.0 Triglycerides 52 Lipase 7576 H Urine Color Urine Appearance Urine pH Ur Specific [place] Urine Protein Urine Glucose (UA) Urine Ketones Urine Blood Urine Nitrite Urine Bilirubin Urine Urobilinogen Ur Leukocyte Esterase Urine WBC (Auto) Urine RBC (Auto) U Hyaline Cast (Auto) U Epithel Cells (Auto) Urine Bacteria (Auto) COVID-19 Eval Order SARS-CoV-2 (PCR) Diagnostic Findings MRCP CLINICAL HISTORY: Pancreatitis. COMPARISON STUDY: Abdominal CT dated 09/22/2020. TECHNIQUE: Abdominal MRCP is performed utilizing various T2-weighted sequences in the axial and coronal planes. IV contrast was not administered for this examination. 3-D reformats are created and assessed. The examination is significantly compromised by motion artifact. FINDINGS: The gallbladder is distended. The gallbladder wall is thickened and edematous and there is pericholecystic inflammation and fluid. Findings are typical for acute cholecystitis. The common bile duct is dilated measuring up to 10 mm diameter. There is a 7 mm filling defect in the distal common bile duct above the ampulla, best seen on coronal image 107 consistent with choledocholithiasis. There is mild intrahepatic biliary ductal dilatation. The pancreatic duct is normal in caliber. The unenhanced liver is grossly unremarkable noting periportal edema. The unenhanced spleen and adrenal glands are normal as imaged. The kidneys demonstrate cortical atrophy and are without hydronephrosis. Cortical and parapelvic cysts on the left measure up to 1.7 cm. The abdominal aorta is ectatic noting atherosclerotic plaque and irregularity. There is no evidence of bowel obstruction. There is a small volume of upper abdominal ascites. Inflammatory change and fluid is seen around the pancreatic head. There are small pleural effusions with airspace consolidation at the lung bases. The heart is enlarged noting a small pericardial effusion. No destructive bony process is identified. IMPRESSION: 1. There is a 7 mm filling defect within the distal common bile duct consistent with choledocholithiasis. There is associated intra- and extrahepatic biliary ductal dilatation. 2. Findings are consistent with acute cholecystitis. 3. Inflammatory change and fluid around the pancreatic head may represent pancreatitis as clinically suspected. 4. There is a small volume of upper abdominal ascites. 5. Trace pleural effusions with bibasilar consolidation. Correlate clinically for evidence of pneumonia/aspiration pneumonitis. 6. Cardiomegaly and small pericardial effusion. 7. Additional findings as above.
[2020-09-22] MEDS ORDERED: LACTATED RINGER'S 1,000 ML IV SCH (16:30)
[2020-09-22] MEDS ORDERED: INDOMETHACIN 50 MG SUPP PR ONE (16:32)
[2020-09-22] MEDS ORDERED: ePHEDrine sulfate 50 MG/ML AMP IV PRN (16:34)
[2020-09-22] MEDS ORDERED: ATROPINE SULFATE 0.1 MG/ML 10ML SYR IV PRN (16:34)
[2020-09-22] MEDS ORDERED: ONDANSETRON INJ 2 MG/ML 2 ML VIAL IV PRN (16:34)
[2020-09-22] MEDS ORDERED: fentaNYL citrate 100 MCG/2 ML VIAL IV PRN (16:34)
--- NOTE | 2020-09-22 16:34 | Anesthesiology Consultation ---
Date of Service September 22, 2020 Assessment & Plan ASA [id number] Proposed Anesthesia Anesthesia Type: General Risk / Benefits Reviewed With: PT / POA / Parent / Guardian, Accepts Plan and Informed Consent Obtained History Surgery Operation Date: 09/22/20 17:00 Proposed Procedures p Endoscopic Retrograde Cholangiopancreatogram, Possible Laparoscopic Cholecystectomy(Not Applicable) - Pam Duran DO Height/Weight Height: 6 ft Weight: 89 kg Allergies Allergy/AdvReac Type Severity Reaction Status Date / Time Quinolones AdvReac Unknown NAUSEA/CHIL Verified 09/22/20 00:19 LS sulfamethoxazole AdvReac Unknown NAUSEA/CHIL Verified 09/22/20 00:19 LS trimethoprim AdvReac Unknown NAUSEA/CHIL Verified 09/22/20 00:19 LS WOOL Allergy Unknown ITCHING Uncoded 09/22/20 00:19 Medications Home Medications Medication Instructions Recorded Confirmed Last Taken cyanocobalamin (vitamin B-12) 1,000 mcg PO DAILY 12/17/18 09/22/20 09/21/20 1,000 mcg capsule alendronate 35 mg PO WK 09/22/20 09/22/20 Unknown cholecalciferol (vitamin D3) 50 mcg PO BID 09/22/20 09/22/20 09/21/20 [Vitamin D3] mirabegron [Myrbetriq] 25 mg PO QPM 09/22/20 09/22/20 09/21/20 spironolacton-hydrochlorothiaz 1 tab PO QAM 09/22/20 09/22/20 09/21/20 tamsulosin 0.4 mg PO DAILY 09/22/20 09/22/20 09/21/20 Active Medications Generic Name Dose Route Start Last Admin Trade Name Freq PRN Reason Stop Dose Admin Sodium Chloride 1,000 mls @ 120 mls/hr 09/22/20 05:38 09/22/20 15:59 Nss 1000ml IV 10/22/20 05:37 120 mls/hr .Q8H20M MARGOTH Administration Piperacillin Sod/Tazobactam 115 mls @ 28.75 mls/hr 09/22/20 08:00 09/22/20 11:47 Sod 3.375 gm/ Dextrose IV 10/02/20 07:59 Infused Q8H MARGOTH Infusion Protocol NPO Date Last Intake of Fluids: 09/22/20 Time Last Intake of Fluids: 00:00 Date Last Intake of Solids: 09/21/20 Time Last Intake of Solids: 18:00 Past Medical History Medical History BPH with obstruction/lower urinary tract symptoms Exercise / Class Metabolic Activity II 4-5 Yardwork/Stairs/Walk up hill Past Anesthesia History No Hx of Anesthesia Complications and No Family Hx of Anesthesia Complications History of PONV No Hx of PONV and No Hx of Motion Sickness Social History Smoking Status: Former smoker Do You Dip or Chew Tobacco: No Hx Alcohol Use: No Hx Substance Use: No Review of Systems denies fever/cough/ colds/ chest pain/ SOB/ PRESTON denies PRESTON Physical Exam Vital Signs Last Vital Signs Temp 36.6 C 09/22/20 16:24 Pulse 103 H 09/22/20 16:24 Resp 20 09/22/20 16:24 BP 118/69 09/22/20 16:24 Pulse Ox 97 09/22/20 16:24 ENMT Mouth: no TMJ abnormality and no dentition abnormality Thyromental Distance: > or= 3.5 Finger Breadths Mallampati Class: II Neck neck extension not limited Respiratory normal respiratory effort; no respiratory distress Auscultation: lungs clear to auscultation bilaterally Cardiovascular Rate/Rhythm: regular rate and regular rhythm Neurologic moves all extremities Psychiatric Orientation: alert and oriented x 3 Testing Laboratory Results 09/22/20 08:57 09/22/20 08:57 PT 11.0 Seconds (9.0-12.0) 09/21/20 23:15 INR 1.1 (0.9-1.1) 09/21/20 23:15 Urine Color Dark Yellow 09/22/20 02:45 Urine Appearance Clear (Clear) 09/22/20 02:45 Urine pH 6.0 (4.5-7.5) 09/22/20 02:45 Ur Specific [place] > 1.045 (1.000-1.030) H 09/22/20 02:45 Urine Protein Trace (Negative) H 09/22/20 02:45 Urine Glucose (UA) Negative (Negative) 09/22/20 02:45 Urine Ketones Negative (Negative) 09/22/20 02:45 Urine Nitrite Negative (Negative) 09/22/20 02:45 Ur Leukocyte Esterase Negative (Negative) 09/22/20 02:45 Urine WBC (Auto) 1-5 /hpf (0-5) 09/22/20 02:45 Urine RBC (Auto) 0-4 /hpf (0-4) 09/22/20 02:45 U Hyaline Cast (Auto) 0 /lpf (0-5) 09/22/20 02:45 U Epithel Cells (Auto) 0-5 /lpf (0-5) 09/22/20 02:45 Urine Bacteria (Auto) Negative (Negative) 09/22/20 02:45 09/21/20 23:15 Aerobic Blood Culture - Preliminary Blood Gram negative bacilli Anaerobic Blood Culture - Preliminary Gram negative bacilli
[2020-09-22] MEDS ORDERED: LIDOCAINE 2% 2 ML VIAL/AMP(20MG/ML) INFIL ONE (16:48)
[2020-09-22] MEDS ORDERED: PROPOFOL IV EMULSION 10 MG/ML 20 ML VIAL IV ONE (16:48)
[2020-09-22] MEDS ORDERED: ONDANSETRON INJ 2 MG/ML 2 ML VIAL ONE ×2 (16:48→18:55)
[2020-09-22] MEDS ORDERED: fentaNYL citrate 100 MCG/2 ML VIAL ONE (16:48)
[2020-09-22] MEDS ORDERED: BUPIVACAINE 0.5 % 5 MG/1 ML MPF 30ML VIAL ONE (16:51)
--- NOTE | 2020-09-22 18:05 | GI REPORT ---
Patient Name: Dakotah Marie Procedure Date: 09/22/2020 4:51 PM Date of : 1930 Admit Type: Inpatient Age: 89 Gender: Male Attending MD: Pam Duran DO Procedure: ERCP Providers: Pam Duran DO Referring MD: Yuriy Stinson DO, Ronak Forrester Do Indications: Abdominal pain of suspected biliary origin, Abnormal MRCP, Suspected ascending cholangitis Medicines: General Anesthesia Complications: No immediate complications. Estimated blood loss: Minimal. Estimated Blood Loss: Estimated blood loss was minimal. Procedure: Pre-Anesthesia Assessment: - Prior to the procedure, a History and Physical was performed, and patient medications, allergies and sensitivities were reviewed. The patient's tolerance of previous anesthesia was reviewed. - The risks and benefits of the procedure and the sedation options and risks were discussed with the patient. All questions were answered and informed consent was obtained. - Patient identification and proposed procedure were verified prior to the procedure by the physician, the nurse and the mobile security architect. The procedure was verified in the procedure room. - Pre-procedure physical examination revealed no contraindications to sedation. - ASA Grade Assessment: IV - A patient with severe systemic disease that is a constant threat to life. - After reviewing the risks and benefits, the patient was deemed in satisfactory condition to undergo the procedure. - The anesthesia plan was to use general anesthesia. - Immediately prior to administration of medications, the patient was re-assessed for adequacy to receive sedatives. - The heart rate, respiratory rate, oxygen saturations, blood pressure, adequacy of pulmonary ventilation, and response to care were monitored throughout the procedure. - The physical status of the patient was re-assessed after the procedure. After obtaining informed consent, the scope was passed under direct vision. Throughout the procedure, the patient's blood pressure, pulse, and oxygen saturations were monitored continuously. The Scope was introduced through the mouth, and advanced to the duodenum and used to inject contrast into the bile duct. The patient tolerated the procedure well. The ERCP was performed with difficulty due to challenging cannulation. Successful completion of the procedure was aided by performing the maneuvers documented (below) in this report. Findings: The pets and pet supplies salesperson film was normal. The esophagus was successfully intubated under direct vision without detailed examination of the pharynx, larynx, and associated structures, and upper GI tract. The upper GI tract was grossly normal. The major papilla was congested. The bile duct could not be cannulated with the short-nosed traction sphincterotome and guidewire despite the use of several cannula and wire combinations (Cook Omni with a 0.035 in Acrobat 2, Ferguson Scienfific Rx 39 and 0.025 in Dream wire / 0.025 in angled Visiglide guidewire. A biliary pre-cut sphincterotomy was made with a monofilament needle knife using a freehand technique using ERBE electrocautery. There was no post-sphincterotomy bleeding. The bile duct was deeply cannulated with the short-nosed traction sphincterotome and 0.025 in Dream guidewire. Contrast was injected. I personally interpreted the bile duct images. Contrast extended to the entire biliary tree. The main bile duct was moderately dilated and diffusely dilated, with a stone causing an obstruction. The largest diameter was 10 mm. The lower third of the main bile duct contained filling defect(s) thought to be a stone and sludge. The lower third of the main bile duct contained a single segmental stenosis 5 mm in length. The biliary sphincterotomy was extended with a monofilament Rx 39 sphincterotome using ERBE electrocautery. There was no post-sphincterotomy bleeding. To discover objects, the biliary tree was swept with a 15 mm balloon starting at the bifurcation. Sludge was swept from the duct. A few stones were removed. No stones remained. Pus was swept from the duct. One 10 Fr by 8 cm biliary stent with a single external flap and a single internal flap was placed 8 cm into the common bile duct. Bile flowed through the stent. The stent was in good position. One 7 Fr by 7 cm biliary stent with a single external flap and a single internal flap was placed 7 cm into the common bile duct. Bile flowed through the stent. The stent was in good position. The endoscope was withdrawn from the patient. Indomethacin 100 mg was given via suppository to decrease the risk of post-ERCP pancreatitis (PEP). Impression: - The major papilla appeared congested. - A filling defect consistent with a stone and sludge was seen on the cholangiogram. 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 - Choledocholithiasis and cholangitis was found. Complete removal was accomplished by biliary sphincterotomy and balloon extraction. - 2 Biiliary stent were placed into the common bile duct. Recommendation: - Avoid aspirin and nonsteroidal anti-inflammatory medicines for 1 week. - NPO today. - Use broad spectrum antibiotics for 2 weeks. - Repeat ERCP in 6 weeks to remove stent. Pam Duran D.O. Pam Duran, 09/22/2020 6:04:38 PM This report has been signed electronically. Note Initiated On: 09/22/2020 4:51 PM Number of Addenda: 0 I attest to the content of the Intraoperative Record and orders documented therein, exceptions below {[id number]}
--- NOTE | 2020-09-22 18:05 | Post Operative Brief Note ---
Immediate Post Op Note v1 Date of Surgery September 22, 2020 Pre & Post Diagnosis Operation Date: 09/22/20 17:00 Pre-Op Diagnosis: Choledocholithiasis I identified the patient and participated in the time-out.: Yes Procedure Operation Date: 09/22/20 17:00 Actual Procedures p Endoscopic Retrograde Cholangiopancreatogram(Not Applicable) - Pam Duran DO Surgeon Pam Duran DO Cruise Director none Estimated Blood Loss 0 Findings Consistent with Post-Op Diagnosis
--- NOTE | 2020-09-22 18:06 | Communication Note ---
Date of Service: September 22, 2020 The patient underwent ERCP this afternoon. He was found to have evidence of biliary stricture and common duct stones in addition to evidence of cholangitis. Based on the appearance I wonder if this may be an inflammatory stricture. We treated the patient with a biliary sphincterotomy removal of the gallstones and placement of 2 biliary stents Recommendations N.p.o. tonight Continue IV hydration overnight Continue broad-spectrum antibiotics for total of 2 weeks Follow-up ERCP in 6 to 8 weeks for biliary stent removal and reevaluation of the distal common bile duct Avoid use of nonsteroidals for 1 week if possible
--- NOTE | 2020-09-22 18:09 | Fluoroscopy Report ---
[place] ERCP biliary ductal CLINICAL HISTORY: Choledocholithiasis. COMPARISON STUDY: MRCP 09/22/2020. FLUOROSCOPY TIME: 23 seconds. FINDINGS: 10 fluoroscopic spot images of the right upper quadrant were submitted. The ampulla was can nulated and contrast was injected into the dilated common bile duct. A balloon sweep was performed fo llowed by placement of a common bile duct stent which appears in good position. IMPRESSION: Fluoroscopy provided for ERCP. ACT 112: Negative or not required by law. Electronically signed by: Mauro Troncoso M.D. 09/22/2020 6:07 PM
[2020-09-22] MEDS ORDERED: ACETAMINOPHEN 1000 MG/100 ML IV IV ONE (18:29)
[2020-09-22] MEDS ORDERED: SUCCINYLCHOLINE CHLORIDE 20 MG/ML 10 ML VIAL IV ONE (18:55)
[2020-09-22] MEDS ORDERED: ROCURONIUM BROMIDE 10 MG/ML 5 ML VIAL IV ONE (18:55)
[2020-09-22] MEDS ORDERED: SUGAMMADEX SODIUM 200 MG/2 ML VIAL IV ONE (19:03)
--- NOTE | 2020-09-22 19:42 | Operative Report ---
[facility] Post Operative Report Pre & Post Diagnosis Operation Date: 09/22/20 17:00 Pre-Op Diagnosis: Choledocholithiasis Post-Op Diagnosis: Choledocholithiasis, cholangitis, cholecystitis I identified the patient and participated in the time-out.: Yes Procedure Operation Date: 09/22/20 17:00 Actual Procedures p Endoscopic Retrograde Cholangiopancreatogram(Not Applicable) - Pam Duran DO s Laparoscopic Cholecystectomy(Not Applicable) - Ronak Pickett DO, DEE DEE Surgeon Ronak Pickett DO, DEE DEE Architecture Analyst none Estimated Blood Loss 100 Findings Consistent with Post-Op Diagnosis Distended gallbladder decompressed with needle aspiration. Critical view of safety obtained, cystic duct and artery doubly clipped and divided. Bleeding from liver bed controlled with cautery and Surgicel. 10 mm flat TOMMY drain placed. Specimens Gallbladder Drains 10 mm TOMMY drain in gallbladder fossa Anesthesia Type General Complications none Disposition Accompanied Patient To Recovery: No Disposition: Recovery Room Indications 89-year-old male presented to the hospital with abdominal pain. Labs and imaging showed choledocholithiasis with cholangitis and cholecystitis. GI to perform ERCP, plan for laparoscopic cholecystectomy with possible cholangiogram at the conclusion of the procedure. The risks of the procedure were discussed, all questions were answered, and the patient agreed to proceed with surgery as planned. Description of Procedure The patient was properly identified, consented, and taken to the operating room where he was placed in the supine position. General endotracheal anesthesia was induced. SCDs and a safety belt were placed. Preoperative antibiotics were administered. The patient's abdomen was prepped and draped in the standard sterile fashion. A surgical timeout was performed and all parties were in agreement that this was the correct patient and procedure to be performed and we continued as planned. An incision was made superior and to the left of the umbilicus overlying the rectus muscle and the Veress needle was inserted. Saline drop test confirmed entry into the peritoneum. The abdomen was insufflated with carbon dioxide which the patient tolerated without incident. The abdomen was then entered using the Optiview technique and a 5 mm trocar. The laparoscope was inserted and no damage from initial trocar or Veress needle placement was noted, no gross abnormalities were noted within the 4 quadrants of the abdomen. The patient did have a fat-containing supraumbilical hernia. This was avoided with initial injury. An 11 mm port was placed in the subxiphoid position and two 5 mm ports were then placed in the right subcostal position. The patient was placed in reverse Trendelenburg position and rotated towards the left. The patient's liver appeared enlarged and moderately cirrhotic. The gallbladder was distended and needle was used to aspirate bile. The gallbladder was moderately inflamed. The dome of the gallbladder was retracted towards the left upper quadrant and the infundibulum was retracted toward the right lower quadrant revealing Calot's triangle. Peritoneal attachments were taken down with electrocautery and blunt dissection. The cystic duct and artery were circumferentially dissected. A window of safety was obtained showing the cystic duct entering the gallbladder with no aberrant structures noted. The cystic duct and artery were doubly clipped and divided. The gallbladder was then lifted off the gallbladder fossa with electrocautery. The gallbladder was placed in an Endo Catch bag and removed through the subxiphoid port site. The right upper quadrant was irrigated and there was bleeding from the liver bed. This was controlled with electrocautery. Surgicel was placed and pressure was held with the assistance of a Ray-Louis sponge. The Ray-Louis sponge was removed. Electrocautery was used again to obtain adequate hemostasis. Another piece of Surgicel was placed. The wound was irrigated and hemostasis confirmed. A 10 mm TOMMY drain was placed in the gallbladder fossa and exited through the right subcostal incision. 5 mm trochars were removed under direct visualization and the abdomen was allowed to collapse. The subxiphoid port site fascia was closed with 0 Vicryl suture. The wound was irrigated, and the skin of all ports was closed with 4-0 Monocryl subcuticular sutures. Dermabond was placed over the wounds. The patient was extubated in the operating room and taken to the PACU where he recovered without apparent incident. All sponge, instrument and needle counts were correct at the conclusion of the procedure. The patient tolerated the procedure well. The physician's production administrative assistant was present and scrubbed for the entirety of the case and was essential in positioning the patient, prepping and draping, retraction and exposure, driving the laparoscope, removal of the gallbladder, closure the incisions, and placement of the dressings. I attest to the content of the Intraoperative Record and any orders documented therein. Any exceptions are noted below.
--- NOTE | 2020-09-22 20:02 | Billing Data ---
Date of Service September 22, 2020 Coding Level of Care Code 82280 Initial Inpt Care Lvl 3
--- NOTE | 2020-09-22 20:29 | XRay Report ---
XR chest 1V portable HISTORY: Postop. Shortness of breath. COMPARISON: Chest 09/21/2020. FINDINGS: Nasogastric tube terminates at the expected location of the distal esophagus. No pneumothor ax. Small bilateral pleural fusions and bibasilar densities have progressed. There is mild central pu lmonary basilar congestion without overt edema. The heart remains enlarged. IMPRESSION: 1. Nasogastric tube terminates at the distal esophagus. This should be advanced by approximately 5 to 10 cm. 2. Small bilateral pleural effusions and bibasilar densities. This could represent atelectasis or pne umonia. 3. Mild central pulmonary vascular congestion without overt edema. ACT 112: Negative or not required by law. Electronically signed by: Mauro Troncoso M.D. 09/22/2020 8:27 PM
--- NOTE | 2020-09-22 20:30 | XRay Report ---
KUB HISTORY: Evaluate nasogastric tube placement. Postop. COMPARISON: Abdomen and pelvis CT 09/22/2020. FINDINGS: Initial images demonstrate a nasogastric tube at the gastroesophageal junction. The final i mage demonstrates a nasogastric tube within the body the stomach. Bibasilar densities are noted. Ther e are few mildly dilated gas-filled loops of small bowel within the abdomen. This favors a postoperat arie ileus at this time. Surgical drain seen within the right upper quadrant. There are, bile duct chante nts noted. Prior cholecystectomy. No renal calculi. No ureteral calculi. No pneumoperitoneum or pneu matosis. IMPRESSION: 1. Nasogastric tube terminates in the stomach. 2. Postoperative changes within the right upper quadrant consistent with a recent cholecystectomy. 3. Mildly dilated gas-filled loops of small bowel. This favors a postoperative ileus. ACT 112: Negative or not required by law. Electronically signed by: Mauro Troncoso M.D. 09/22/2020 8:29 PM
[2020-09-22 20:46] LABS: Basophils # (auto) 0.01 K/uL (0-0.2); Basophils % (auto) 0.1 %; Hematocrit (blood only) 40.3 % (42-52); Hemoglobin 12.9 g/dL (14.0-18.0); Immature Granulocytes # (auto) 0.07 K/uL (0.00-0.02); Immature Granulocytes % (auto) 0.4 %; Lymphocytes # (auto) 0.79 K/uL (1.2-3.4); Lymphocytes % (auto) 4.2 %; Mean Corpuscular Hemoglobin 31.8 pg (25-34); Mean Corpuscular Volume 99.3 fL (80-100); Mean Platelet Volume 10.8 fL (7.4-10.4); Monocytes # (auto) 1.09 K/uL (0.11-0.59); Monocytes % (auto) 5.7 %; Neutrophils % (auto) 89.6 %; Platelet Count 100 K/uL (130-400); RDW Coefficient of Variation 14.1 % (11.5-14.5); RDW Standard Deviation 51.1 fL (36.4-46.3); Red Blood Count 4.06 M/uL (4.7-6.1); White Blood Count 18.96 K/uL (4.8-10.8)
--- NOTE | 2020-09-22 20:54 | Critical Care Consultation ---
Date of Consultation September 22, 2020 Assessment & Plan (1) Acute cholecystitis: Impression: 89-year-old male presents to the ICU with acute cholangitis, cholecystitis and choledocholithiasis status post ERCP with biliary stent x2 and a laparoscopic cholecystectomy. Patient had bleeding from liver bed during case with EBL 100 mL which was controlled with electrocautery. He also had an episode of vomiting while intubated in OR and has been febrile throughout the case. Patient is admitted to ICU for close monitoring overnight as he is considered at higher risk of decompensation by surgical team. Neuro - Cardiac -patient currently hemodynamically stable without use of vasopressors -Echo from 05/15/2020 with type II diastolic dysfunction with EF 60 to 65%. Severe left atrial dilation. Mild right atrial dilation. Mild aortic regurg. Mild mitral stenosis and mild mitral regurg -Continuous monitoring on telemetry and hemodynamic monitoring in ICU for tonight -Can restart home antihypertensives in a.m. if remains hemodynamically stable overnight A flutterno prior history. Currently controlled rate -Would be unable to anticoagulate at this time due to surgical procedure -Continue to monitor on telemetry for now -Would consider MTP for rate control if patient starts to become tachycardic Respiratory - Hypoxiapatient currently maintaining oxygen saturations on 5 L oxygen mask, was extubated postop without complications. -Chest x-ray with small bilateral pleural effusions and bibasilar densities. Mild pulmonary vascular congestion -Reports of vomiting episode during OR, however patient did have protected airway at that time. Continue with NG tube to low wall suction -Patient with diastolic heart failure and valvular disease noted on echo as above. Careful with IV fluid resuscitation. Consider diuresis if patient becomes increasingly hypoxic -Continue Zosyn -Wean O2 as tolerated -Continuous pulse ox monitor GI - Acute cholangitis/cholecystitis/pancreatitiss/p ERCP with sphincterectomy and biliary stent x2 and laparoscopic cholecystectomy -MRCP positive prior to surgery. See above -Follow-up surgical recommendations. Admitted to ICU overnight per surgery recommendations -trend lipase and LFTs -Continue Zosyn -N.p.o. -NG tube to low intermittent low wall suction. Will monitor output RENAL/LYTES - Creatinine stable at 1.15 Monitor electrolytes and replete as indicated Careful with IV fluid resuscitation given diastolic heart failure/valvular disease Strict I's and O's - BPHcontinue La catheter for now -Continue Flovent ENDO - No history of diabetes or thyroid disease ICU hyperglycemic protocol HEME - EBL 100 with bleeding from liver bed noted on surgical report and controlled with cautery. TOMMY in place -Hemoglobin stable at 12.9 on postop CBC -Monitor routine CBCs ID - Sepsispatient with leukocytosis, febrile, elevated lactate -Repeat lactate and procalcitonin pending -Likely abdominal source considering cholecystitis, however chest x-ray with evidence of pulmonary infiltrates. Possible aspiration -Blood culture with gram-negative bacilli on preliminary x1. Follow-up second culture results -Continue Zosyn LINES/IV ACCESS - Peripheral IVs, NG tube DVT PROPHYLAXIS - SCDs, hold anticoagulation following surgical procedure Thank you for allowing us to participate in the care of this patient. Please refer to my attending physician's documentation for any further recommendations. (2) Acute pancreatitis: (3) RLL pneumonia: (4) Choledocholithiasis: (5) Leukocytosis: (6) BPH with obstruction/lower urinary tract symptoms: (7) Mitral stenosis: (8) Atrial flutter: Supervising Physician Co-Signing Physician Notes seen and examined. EMR reviewed. discussed with CC MELISSA and agree with AP as noted. See my PN from 09/23 for additional details. History of Present Illness Attending Physician: Tara Beyer MD History of Present Illness Patient is a 89-year-old male with past medical history including diastolic heart failure, mitral and aortic insufficiency, mitral stenosis who presented to the ER yesterday evening with complaints of right-sided pain. Patient had elevated LFTs and lipase and was febrile. Was noted to have pancreatitis on CT and gallbladder with distention and thickening concerning for cholecystitis. Patient underwent ERCP this afternoon and was found to have evidence of biliary stricture and common duct stones. He underwent biliary sphincterectomy removal of the gallstones and placement of 2 biliary stents and a laparoscopic cholecystectomy. Patient was noted to have a vomiting episode in the OR while he was intubated and NG tube was placed to suction. Patient was extubated and transferred to the ICU for monitoring overnight per surgeon recommendations. On arrival to the ICU, patient is alert and oriented. Patient denies pain but abdomen is tender with palpation. He has a TOMMY drain to compression with serosanguineous drainage. NG tube is to intermittent low wall suction. He is maintaining oxygen saturations on 5 L oxygen mask. He is hemodynamically stable without vasopressors. He is noted to have a productive cough and states that he has coughed up some phlegm over the past few days but denies hemoptysis. He denies headache, dizziness, shortness of breath, sore throat, chest pain, palpitations, nausea or vomiting or diarrhea, swelling in hands or feet. Patient remained in ICU for further monitoring this time. Allergies Allergy/AdvReac Type Severity Reaction Status Date / Time Quinolones AdvReac Unknown NAUSEA/CHIL Verified 09/22/20 00:19 LS sulfamethoxazole AdvReac Unknown NAUSEA/CHIL Verified 09/22/20 00:19 LS trimethoprim AdvReac Unknown NAUSEA/CHIL Verified 09/22/20 00:19 LS WOOL Allergy Unknown ITCHING Uncoded 09/22/20 00:19 Home Medications Medication Instructions Recorded Confirmed Type cyanocobalamin (vitamin B-12) 1,000 mcg PO DAILY 12/17/18 09/22/20 History 1,000 mcg capsule alendronate 35 mg PO WK 09/22/20 09/22/20 History cholecalciferol (vitamin D3) 50 mcg PO BID 09/22/20 09/22/20 History [Vitamin D3] mirabegron [Myrbetriq] 25 mg PO QPM 09/22/20 09/22/20 History spironolacton-hydrochlorothiaz 1 tab PO QAM 09/22/20 09/22/20 History tamsulosin 0.4 mg PO DAILY 09/22/20 09/22/20 History Patient History Medical History BPH with obstruction/lower urinary tract symptoms Social History Smoking Status: Former smoker Tobacco Type: Cigarettes Second Hand Exposure: No; Do You Dip or Chew Tobacco: No; Hx Alcohol Use: No Hx Substance Use: No Preferred Language: Albanian Communication Ability: Effective Beliefs That Will Affect Care: None marital status: Current Living Situation: Spouse How many Children do You have: 2 Feels Safe at Home: Yes Safety Concerns: Feels Safe At This Time Review of Systems Review of Systems: All systems reviewed & are unremarkable except as noted in HPI & below Physical Exam Constitutional: cooperative and comfortable Eyes: PERRL, conjunctivae normal, anicteric sclerae ENMT: external ear and nose normal, oropharynx normal Neck: trachea midline, no thyromegaly Respiratory: Symmetrical chest wall movement, nonlabored breathing, no stridor or wheezing. Rhonchi auscultated bilaterally in the bases. Productive cough Cardiovascular: Rate/Rhythm: + irregularly irregular Vessels: no JVD Extremities: normal capillary refill; no edema Gastrointestinal (Abdomen): Abdomen soft, normal bowel sounds, tender to light palpation in upper left and right quadrant. Musculoskeletal: no cyanosis or clubbing, extremities motor strength 5/5 Skin: no rashes, warm and dry Neurologic: PERRL, EOMI, accommodation nl, no face palsy, no dysarthria Psychiatric: A+Ox3, euthymic affect Genitourinary: Indwelling La catheter present Results & Data Results & Data ([facility]) Vital Signs (Past 12 Hours) Vital Signs Temp Pulse Resp BP BP Pulse Ox 09/22/20 20:25 36.6 C 66 14 109/61 94 09/22/20 20:15 79 14 108/59 L 94 09/22/20 20:05 78 14 100/68 94 09/22/20 19:59 36.8 C 78 14 103/81 94 09/22/20 16:24 36.6 C 103 H 20 118/69 97 09/22/20 15:45 36.8 C 81 22 107/64 97 09/22/20 12:36 36.6 C 85 20 113/65 95 Coding Level of Care Code Critical Care 1st 30-74 mins Diagnoses Acute cholecystitis K81.0 Acute pancreatitis K85.00 Acute pancreatitis complication: no infection or necrosis Pancreatitis type: idiopathic RLL pneumonia J18.9 Pneumonia type: due to unspecified organism Choledocholithiasis K80.50 Leukocytosis D72.829 BPH with obstruction/lower urinary tract symptoms N40.1; N13.8 Mitral stenosis I05.0 Atrial flutter I48.92 (1) RLL pneumonia Pneumonia type: due to unspecified organism Qualified Code(s): J18.9 - Pneumonia, unspecified organism (2) Acute pancreatitis Acute pancreatitis complication: no infection or necrosis Pancreatitis type: idiopathic Qualified Code(s): K85.00 - Idiopathic acute pancreatitis without necrosis or infection
[2020-09-22 20:58] LABS: INR 1.4 (0.9-1.1); Prothrombin Time 13.6 Seconds (9.0-12.0)
[2020-09-22 21:09] LABS: Albumin Level 2.7 gm/dl (3.4-5.0); BUN Creatinine Ratio 20.5 (10-20); Calcium 8.6 mg/dl (8.5-10.1); Creatinine Clr Calc Pharmacy 48.7 ml/min; Est GFR (African American) 65.5 ml/min; Est GFR (Non-African American) 56.5 ml/min; Potassium 4.1 mmol/L (3.5-5.1)
[2020-09-22 21:12] LABS: Albumin Globulin Ratio 0.8 (0.9-2); Bilirubin,Total 2.4 mg/dl (0.2-1); Globulin 3.5 gm/dl (2.5-4.0); Total Protein 6.2 gm/dl (6.4-8.2)
[2020-09-22] MEDS ORDERED: ICU PROTOCOL FOR HYPERGLYCEMIA PRN (21:30)
--- NOTE | 2020-09-22 22:15 | Anesthesiology Progress Note ---
Date of Service September 22, 2020 Anesthesia Post Procedure Vital Signs Vital Signs: Temp Pulse Pulse Resp BP BP BP 09/22/20 20:55 35.6 C L 68 26 H 128/74 09/22/20 20:50 71 19 115/71 09/22/20 20:45 66 20 115/70 09/22/20 20:40 66 29 H 116/68 09/22/20 20:38 66 17 118/63 09/22/20 20:30 68 21 98/76 L 09/22/20 20:25 36.6 C 67 66 18 109/61 109/61 09/22/20 20:20 65 18 107/62 09/22/20 20:15 66 79 16 108/59 L 108/59 L 09/22/20 20:10 71 19 105/75 09/22/20 20:06 78 15 100/68 09/22/20 20:05 78 14 100/68 09/22/20 20:04 65 09/22/20 20:00 36.5 C 09/22/20 19:59 36.8 C 78 14 103/81 09/22/20 16:24 36.6 C 103 H 20 118/69 09/22/20 15:45 36.8 C 81 22 107/64 09/22/20 12:36 36.6 C 85 20 113/65 09/22/20 07:33 36.6 C 76 18 95/56 L 09/22/20 06:46 09/22/20 06:31 80 09/22/20 06:15 09/22/20 05:56 37.1 C 86 16 96/62 L 09/22/20 05:38 09/22/20 05:18 36.8 C 09/22/20 05:10 87/50 L 09/22/20 04:00 87/59 L 09/22/20 02:42 82 24 97/62 L 09/22/20 02:00 93 H 22 91/49 L 09/22/20 01:30 95 H 23 99/50 L 09/22/20 01:08 09/22/20 00:31 101 H 26 H 09/22/20 00:30 100 H 36 H 111/65 09/22/20 00:00 99 H 22 112/65 09/21/20 23:30 97 H 23 119/55 L 09/21/20 23:26 09/21/20 23:09 103 H 23 132/67 09/21/20 22:59 98 H 20 118/64 Pulse Ox Pulse Ox 09/22/20 20:55 97 09/22/20 20:50 97 09/22/20 20:45 96 09/22/20 20:40 96 09/22/20 20:38 95 09/22/20 20:30 93 09/22/20 20:25 93 09/22/20 20:20 92 09/22/20 20:15 92 09/22/20 20:10 94 09/22/20 20:06 94 09/22/20 20:05 94 09/22/20 20:04 94 09/22/20 20:00 09/22/20 19:59 94 09/22/20 16:24 97 09/22/20 15:45 97 09/22/20 12:36 95 09/22/20 07:33 91 09/22/20 06:46 93 09/22/20 06:31 09/22/20 06:15 92 09/22/20 05:56 74 L 09/22/20 05:38 93 74 L 09/22/20 05:18 09/22/20 05:10 92 09/22/20 04:00 09/22/20 02:42 92 09/22/20 02:00 93 09/22/20 01:30 94 09/22/20 01:08 93 09/22/20 00:31 94 09/22/20 00:30 94 09/22/20 00:00 91 09/21/20 23:30 91 09/21/20 23:26 91 09/21/20 23:09 09/21/20 22:59 85 L Pain Intensity Right Lower Abdomen: Pain Intensity: 7 Transfer of Care Handoff Completed per policy Notes Mental Status: alert / awake / arousable and participated in evaluation Patient Amnestic to Procedure: Yes Nausea / Vomiting: adequately controlled Pain: adequately controlled Airway Patency, RR, SpO2: stable & adequate BP & HR: stable & adequate Hydration State: stable & adequate Anesthetic Complications: no major complications apparent and Pt Satisfied with anesthetic care
[2020-09-22] MEDS: FAMOTIDINE 20 MG in SYRINGE 3 ML IV SCH (23:04)
[2020-09-23] MEDS ORDERED: SODIUM CHLORIDE 0.9% 1000ML 500 ML IV ONE ×2 (02:32→04:18)
[2020-09-23] MEDS ORDERED: ALBUMIN 5% 250 ML IV ONE (02:35)
[2020-09-23] MEDS: SODIUM CHLORIDE 0.9% 1000ML 1,000 ML IV SCH ×3 (02:58→18:06)
[2020-09-23 05:02] LABS: Hematocrit (blood only) 35.2 % (42-52); Hemoglobin 11.6 g/dL (14.0-18.0); Mean Corpuscular Hemoglobin 32.5 pg (25-34); Mean Corpuscular Volume 98.6 fL (80-100); RDW Coefficient of Variation 14.1 % (11.5-14.5); RDW Standard Deviation 50.4 fL (36.4-46.3); Red Blood Count 3.57 M/uL (4.7-6.1)
[2020-09-23 05:24] LABS: Albumin Level 2.7 gm/dl (3.4-5.0); BUN Creatinine Ratio 24.8 (10-20); Creatinine Clr Calc Pharmacy 57.3 ml/min; Est GFR (African American) 72.3 ml/min; Est GFR (Non-African American) 62.4 ml/min; Potassium 3.8 mmol/L (3.5-5.1)
[2020-09-23 05:39] LABS: Mean Platelet Volume 11.1 fL (7.4-10.4); Platelet Count 91 K/uL (130-400)
[2020-09-23 05:40] LABS: Basophils # (auto) 0.01 K/uL (0-0.2); Basophils % (auto) 0.1 %; Eosinophils # (auto) 0.02 K/uL (0-0.5); Eosinophils % (auto) 0.1 %; Immature Granulocytes # (auto) 0.04 K/uL (0.00-0.02); Immature Granulocytes % (auto) 0.3 %; Lymphocytes # (auto) 1.49 K/uL (1.2-3.4); Lymphocytes % (auto) 9.4 %; Monocytes # (auto) 0.63 K/uL (0.11-0.59); Neutrophils # (auto) 13.61 K/uL (1.4-6.5); Neutrophils % (auto) 86.1 %; Platelet Estimate Decreased (Normal)
[2020-09-23 05:41] LABS: Albumin Globulin Ratio 0.9 (0.9-2); Bilirubin,Total 1.8 mg/dl (0.2-1); Globulin 2.9 gm/dl (2.5-4.0); Total Protein 5.6 gm/dl (6.4-8.2)
[2020-09-23] MEDS: POTASSIUM CHLORIDE / WTR 10 MEQ/100 ML PLCT IV SCH ×2 (05:52→07:35)
--- NOTE | 2020-09-23 06:07 | Surgery Progress Note ---
Date of Service September 23, 2020 Assessment & Plan (1) Acute pancreatitis: Postoperative day #1 ERCP and laparoscopic cholecystectomy Continue analgesics Continue antiemetics We will consider removing NG tube as there has not been much output over the past several hours It is noted the patient's white blood cell count, lipase, and LFTs are all improving Due to noted pancreatitis recommend continued fluid resuscitation We will keep n.p.o. for the present time until further improvement of pancreatitis and improved bowel function are noted We will mobilize the patient as able Continue antibiotics in the form of Zosyn Consider adding subcu heparin for DVT prevention Admission and Anticipated Discharge Date Admission Date: September 22, 2020 Supervising Physician Co-Signing Physician Notes pnt s&e, agree with above. POD#1 lap rosa and ercp for cholangitis. Feeling much better, pain essentially gone. No issues overnight. afvss. abd soft, appropriately ttp, significantly improved from yesterday. drain with ss drainage. wbc, lft's, lipase downtrending. hgb/hct slightly down from post op, but expected without concern for significant bleeding. Will keep ng for now, if passes flatus may remove and start clears. continue ng. continue abx for sepsis/cholangitis. may transfer to [facility]. may start a/c. surgery will follow. Subjective Patient is resting comfortably in bed. He denies any nausea or vomiting. He notes some abdominal tenderness but notes this has been improved since his surgical procedures. I discussed with the ICU nurse and there have been no surgical concerns noted since arrival to the ICU. Physical Exam Gastrointestinal (Abdomen): Abdomen is soft and nondistended. Bowel sounds are hypoactive. There is pain with palpation epigastric area along with near his surgical incisions. Results & Data ([facility]) Vital Signs (Past 12 Hours) Vital Signs Temp Pulse Pulse Resp BP BP Pulse Ox 09/23/20 05:00 36.8 C 71 18 106/58 L 94 09/23/20 04:30 36.8 C 77 16 96/55 L 95 09/23/20 04:00 36.8 C 64 19 90/63 L 95 09/23/20 03:30 36.9 C 78 16 81/46 L 94 09/23/20 03:00 37.0 C 70 16 92/48 L 94 09/23/20 02:30 37.0 C 77 15 87/44 L 94 09/23/20 02:28 37.0 C 70 15 82/47 L 93 09/23/20 02:05 37.1 C 79 17 83/38 L 92 09/23/20 02:04 37.1 C 74 19 79/44 L 89 L 09/23/20 02:00 37.1 C 79 16 84/46 L 90 09/23/20 01:31 37.1 C 83 23 95 09/23/20 01:30 37.0 C 66 22 108/62 98 09/23/20 01:27 37.1 C 66 21 103/57 L 97 09/23/20 01:19 37.1 C 66 21 81/49 L 96 09/23/20 01:00 37.1 C 71 17 90/48 L 96 09/23/20 00:30 37.1 C 70 18 101/57 L 97 09/23/20 00:00 37.1 C 81 17 103/60 97 09/22/20 23:45 37.1 C 66 21 99/54 L 97 09/22/20 23:30 37.1 C 66 20 104/54 L 97 09/22/20 23:15 37.1 C 66 21 104/57 L 98 09/22/20 23:00 37.1 C 70 21 109/59 L 100 09/22/20 22:45 37.1 C 66 18 106/56 L 97 09/22/20 22:30 37.0 C 68 22 113/70 96 09/22/20 22:15 36.9 C 71 24 111/64 96 09/22/20 22:00 36.9 C 69 13 97/59 L 98 09/22/20 21:45 36.9 C 19 107/63 98 09/22/20 21:30 36.7 C 66 18 98/58 L 94 09/22/20 21:20 36.7 C 75 21 110/60 97 09/22/20 21:15 36.6 C 66 29 H 116/64 97 09/22/20 21:10 36.5 C 72 18 106/74 97 09/22/20 21:05 36.4 C L 68 33 H 116/77 97 09/22/20 21:00 36.2 C L 68 15 125/67 93 09/22/20 20:55 35.6 C L 68 26 H 128/74 97 09/22/20 20:50 71 19 115/71 97 09/22/20 20:45 66 20 115/70 96 09/22/20 20:40 66 29 H 116/68 96 09/22/20 20:38 66 17 118/63 95 09/22/20 20:30 68 21 98/76 L 93 09/22/20 20:25 36.6 C 67 66 18 109/61 109/61 93 09/22/20 20:20 65 18 107/62 92 09/22/20 20:15 66 79 16 108/59 L 108/59 L 92 09/22/20 20:10 71 19 105/75 94 09/22/20 20:06 78 15 100/68 94 09/22/20 20:05 78 14 100/68 94 09/22/20 20:04 65 94 09/22/20 20:00 36.5 C 09/22/20 19:59 36.8 C 78 14 103/81 94 PG Care Time/CCT Total # of Minutes Spent Total Time Spent with Patient: Total time spent is greater than 50% in coordination of care (as documented) at patient's floor/unit and/or counseling patient: Coding Level of Care Code None Diagnoses Acute pancreatitis K85.00 Acute pancreatitis complication: no infection or necrosis Pancreatitis type: idiopathic (1) Acute pancreatitis Acute pancreatitis complication: no infection or necrosis Pancreatitis type: idiopathic Qualified Code(s): K85.00 - Idiopathic acute pancreatitis without necrosis or infection
[2020-09-23] MEDS: PIPERACILLIN/TAZOBACTAM 3.375 GM in DEXTROSE 5% 100 ML IV SCH ×3 (07:36→23:52)
--- NOTE | 2020-09-23 07:44 | Critical Care Progress Note ---
Date of Service September 23, 2020 Assessment & Plan (1) Acute cholecystitis: (2) Acute pancreatitis: (3) Severe sepsis with septic shock: Impression: 89-year-old male presents to the ICU with acute cholangitis, cholecystitis and choledocholithiasis status post ERCP with biliary stent x2 and a laparoscopic cholecystectomy. Patient had bleeding from liver bed during case with EBL 100 mL which was controlled with electrocautery. He also had an episode of vomiting while intubated in OR and has been febrile throughout the case. Patient is admitted to ICU for close monitoring overnight as he is considered at higher risk of decompensation by surgical team. 24-hour events: Patient presented to the emergency room with biliary sepsis. He had pancreatitis likely secondary to gallstones. He underwent ERCP with sphincterotomy, biliary sweeping with removal of stones and placement of biliary stents. Laparoscopic cholecystectomy was also conducted. He was brought to the ICU postoperatively for close hemodynamic monitoring. Recommendations: Neuro -no current issues. Continue to observe at this point time. 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 Severe left atrial dilation. Mild right atrial dilation. Mild aortic regurg. Mild mitral stenosis and mild mitral regurg. Was briefly hypotensive last night but responded to additional fluid boluses. He is 6 L positive this admission and given his cardiac history, would be judicious about additional fluids. His lactate is cleared. His LFTs are improving. History of a flutter, but this morning may be in atrial fibrillation is rate controlled. Cannot fully anticoagulate given recent surgery. Will check EKG this morning. Holding his antihypertensives. Respiratory -chest x-ray with pulmonary venous congestion and atelectatic changes at the right lung base. This prior x-ray from July did demonstrate some chronic changes. There was concern about potential aspiration during the case. Continue pulmonary toilet. GI - Acute cholangitis/cholecystitis/pancreatitiss/p ERCP with sphincterectomy and biliary stent x2 and laparoscopic cholecystectomy. Management per general surgery and GI. LFTs lipase are all trending down. NG tube per general surgery. Await return of bowel function. On H2 Zay. Patient denies any significant pain currently. RENAL/LYTES -urine output adequate. Serum creatinine stable and electrolytes are stable. Volume status appears slightly up but will hold diuretics for now. ENDO - ICU hyperglycemic protocol HEME -leukocytosis improving. Anemia stable. No indication for transfusion. Platelet count decreasing. Continue to follow. No indication for transfusion currently. ID - Sepsispatient with leukocytosis, febrile, elevated lactate, biliary sourc e. Day #2 Zosyn. Blood cultures from presentation 1 out of 2 gram-negative rods. Speciation and sensitivity pending. Continue antibiotics for now. White count decreasing and lactate cleared. LINES/IV ACCESS - Peripheral IVs, NG tube DVT PROPHYLAXIS - SCDs, can start subcutaneous heparin. Will need to follow with decreasing platelet count Disposition: per general surgery and GI. Admission and Anticipated Discharge Date Admission Date: September 22, 2020 Subjective Patient seen and examined. He is awake alert. He states his abdominal pain is resolved. He feels markedly better than yesterday. He is not passing any gas yet. No nausea or vomiting. He does not have much of an appetite yet. No chest pain palpitations or shortness of breath. Review of Systems Review of Systems: All systems reviewed & are unremarkable except as noted in HPI & below Physical Exam Constitutional: WD/WN, vitals as above Neck: trachea midline, no thyromegaly Respiratory: normal respiratory effort, lungs clear to auscultation Cardiovascular: RRR, no murmur, no edema Gastrointestinal (Abdomen): Inspection/Auscultation: abdomen not distended and + abnormal bowel sounds Absent bowel sounds. Minimally tender to palpation Musculoskeletal: Extremities: extremities normal to inspection Skin: no rashes, warm and dry Neurologic: Nonfocal exam Lymphatic: no cervical lymphadenopathy Results & Data Results & Data ([facility]) Vital Signs (Past 12 Hours) Vital Signs Temp Pulse Pulse Resp BP BP Pulse Ox 09/23/20 07:28 86 09/23/20 06:30 36.7 C 93 H 19 108/70 94 09/23/20 06:00 36.7 C 83 16 101/54 L 92 09/23/20 05:30 36.8 C 80 17 96/62 L 93 09/23/20 05:00 36.8 C 71 18 106/58 L 94 09/23/20 04:30 36.8 C 77 16 96/55 L 95 09/23/20 04:00 36.8 C 64 19 90/63 L 95 09/23/20 03:30 36.9 C 78 16 81/46 L 94 09/23/20 03:00 37.0 C 70 16 92/48 L 94 09/23/20 02:30 37.0 C 77 15 87/44 L 94 09/23/20 02:28 37.0 C 70 15 82/47 L 93 09/23/20 02:05 37.1 C 79 17 83/38 L 92 09/23/20 02:04 37.1 C 74 19 79/44 L 89 L 09/23/20 02:00 37.1 C 79 16 84/46 L 90 09/23/20 01:31 37.1 C 83 23 95 09/23/20 01:30 37.0 C 66 22 108/62 98 09/23/20 01:27 37.1 C 66 21 103/57 L 97 09/23/20 01:19 37.1 C 66 21 81/49 L 96 09/23/20 01:00 37.1 C 71 17 90/48 L 96 09/23/20 00:30 37.1 C 70 18 101/57 L 97 09/23/20 00:00 37.1 C 81 17 103/60 97 09/22/20 23:45 37.1 C 66 21 99/54 L 97 09/22/20 23:30 37.1 C 66 20 104/54 L 97 09/22/20 23:15 37.1 C 66 21 104/57 L 98 09/22/20 23:00 37.1 C 70 21 109/59 L 100 09/22/20 22:45 37.1 C 66 18 106/56 L 97 09/22/20 22:30 37.0 C 68 22 113/70 96 09/22/20 22:15 36.9 C 71 24 111/64 96 09/22/20 22:00 36.9 C 69 13 97/59 L 98 09/22/20 21:45 36.9 C 19 107/63 98 09/22/20 21:30 36.7 C 66 18 98/58 L 94 09/22/20 21:20 36.7 C 75 21 110/60 97 09/22/20 21:15 36.6 C 66 29 H 116/64 97 09/22/20 21:10 36.5 C 72 18 106/74 97 09/22/20 21:05 36.4 C L 68 33 H 116/77 97 09/22/20 21:00 36.2 C L 68 15 125/67 93 09/22/20 20:55 35.6 C L 68 26 H 128/74 97 09/22/20 20:50 71 19 115/71 97 09/22/20 20:45 66 20 115/70 96 09/22/20 20:40 66 29 H 116/68 96 09/22/20 20:38 66 17 118/63 95 09/22/20 20:30 68 21 98/76 L 93 09/22/20 20:25 36.6 C 67 66 18 109/61 109/61 93 09/22/20 20:20 65 18 107/62 92 09/22/20 20:15 66 79 16 108/59 L 108/59 L 92 09/22/20 20:10 71 19 105/75 94 09/22/20 20:06 78 15 100/68 94 09/22/20 20:05 78 14 100/68 94 09/22/20 20:04 65 94 09/22/20 20:00 36.5 C 09/22/20 19:59 36.8 C 78 14 103/81 94 Critical Care Results & Data Vital Signs (Past 12 Hours) Vital Signs Temp Pulse Pulse Resp BP BP Pulse Ox 09/23/20 07:28 86 09/23/20 06:30 36.7 C 93 H 19 108/70 94 09/23/20 06:00 36.7 C 83 16 101/54 L 92 09/23/20 05:30 36.8 C 80 17 96/62 L 93 09/23/20 05:00 36.8 C 71 18 106/58 L 94 09/23/20 04:30 36.8 C 77 16 96/55 L 95 09/23/20 04:00 36.8 C 64 19 90/63 L 95 09/23/20 03:30 36.9 C 78 16 81/46 L 94 09/23/20 03:00 37.0 C 70 16 92/48 L 94 09/23/20 02:30 37.0 C 77 15 87/44 L 94 09/23/20 02:28 37.0 C 70 15 82/47 L 93 09/23/20 02:05 37.1 C 79 17 83/38 L 92 09/23/20 02:04 37.1 C 74 19 79/44 L 89 L 09/23/20 02:00 37.1 C 79 16 84/46 L 90 09/23/20 01:31 37.1 C 83 23 95 09/23/20 01:30 37.0 C 66 22 108/62 98 09/23/20 01:27 37.1 C 66 21 103/57 L 97 09/23/20 01:19 37.1 C 66 21 81/49 L 96 09/23/20 01:00 37.1 C 71 17 90/48 L 96 09/23/20 00:30 37.1 C 70 18 101/57 L 97 09/23/20 00:00 37.1 C 81 17 103/60 97 09/22/20 23:45 37.1 C 66 21 99/54 L 97 09/22/20 23:30 37.1 C 66 20 104/54 L 97 09/22/20 23:15 37.1 C 66 21 104/57 L 98 09/22/20 23:00 37.1 C 70 21 109/59 L 100 09/22/20 22:45 37.1 C 66 18 106/56 L 97 09/22/20 22:30 37.0 C 68 22 113/70 96 09/22/20 22:15 36.9 C 71 24 111/64 96 09/22/20 22:00 36.9 C 69 13 97/59 L 98 09/22/20 21:45 36.9 C 19 107/63 98 09/22/20 21:30 36.7 C 66 18 98/58 L 94 09/22/20 21:20 36.7 C 75 21 110/60 97 09/22/20 21:15 36.6 C 66 29 H 116/64 97 09/22/20 21:10 36.5 C 72 18 106/74 97 09/22/20 21:05 36.4 C L 68 33 H 116/77 97 09/22/20 21:00 36.2 C L 68 15 125/67 93 09/22/20 20:55 35.6 C L 68 26 H 128/74 97 09/22/20 20:50 71 19 115/71 97 09/22/20 20:45 66 20 115/70 96 09/22/20 20:40 66 29 H 116/68 96 09/22/20 20:38 66 17 118/63 95 09/22/20 20:30 68 21 98/76 L 93 09/22/20 20:25 36.6 C 67 66 18 109/61 109/61 93 09/22/20 20:20 65 18 107/62 92 09/22/20 20:15 66 79 16 108/59 L 108/59 L 92 09/22/20 20:10 71 19 105/75 94 09/22/20 20:06 78 15 100/68 94 09/22/20 20:05 78 14 100/68 94 09/22/20 20:04 65 94 09/22/20 20:00 36.5 C 09/22/20 19:59 36.8 C 78 14 103/81 94 Lab & Micro Results (Past 24 Hours) RBC 3.57 M/uL (4.7-6.1) L 09/23/20 WBC 15.80 K/uL (4.8-10.8) H 09/23/20 Hgb 11.6 g/dL (14.0-18.0) L 09/23/20 Hct 35.2 % (42-52) L 09/23/20 MCV 98.6 fL (80-100) 09/23/20 MCH 32.5 pg (25-34) 09/23/20 MCHC 33.0 g/dL (32-36) 09/23/20 RDW Standard Deviation 50.4 fL (36.4-46.3) H 09/23/20 RDW Coefficient of Variation 14.1 % (11.5-14.5) 09/23/20 Plt Count 91 K/uL (130-400) L 09/23/20 MPV 11.1 fL (7.4-10.4) H 09/23/20 Neutrophils (%) (Auto) 86.1 % 09/23/20 Lymphocytes (%) (Auto) 9.4 % 09/23/20 Monocytes # (Auto) 0.63 K/uL (0.11-0.59) H 09/23/20 Eosinophils # (Auto) 0.02 K/uL (0-0.5) 09/23/20 Immature Granulocyte % (Auto) 0.3 % 09/23/20 Neutrophils # (Auto) 13.61 K/uL (1.4-6.5) H 09/23/20 Lymphocytes # (Auto) 1.49 K/uL (1.2-3.4) 09/23/20 Monocytes # (Auto) 0.63 K/uL (0.11-0.59) H 09/23/20 Eosinophils # (Auto) 0.02 K/uL (0-0.5) 09/23/20 Basophils # (Auto) 0.01 K/uL (0-0.2) 09/23/20 Immature Granulocyte # (Auto) 0.04 K/uL (0.00-0.02) H 09/23/20 Na 140 mmol/L (136-145) 09/23/20 K 3.8 mmol/L (3.5-5.1) 09/23/20 Cl 111 mmol/L (98-107) H 09/23/20 CO2 26 mmol/L (21-32) 09/23/20 Anion Gap 3.0 (3-11) 09/23/20 BUN 26 mg/dl (7-18) H 09/23/20 Creatinine 1.06 mg/dl (0.6-1.4) 09/23/20 Estimated GFR ( Amer) 72.3 ml/min 09/23/20 Estimated GFR (Non-Af Amer) 62.4 ml/min 09/23/20 BUN/Creatinine Ratio 24.8 (10-20) H 09/23/20 Glu 77 mg/dl (70-99) 09/23/20 Ca 8.0 mg/dl (8.5-10.1) L 09/23/20 Total Bilirubin 1.8 mg/dl (0.2-1) H 09/23/20 AST 82 U/L (15-37) H 09/23/20 ALT 84 U/L (12-78) H 09/23/20 Alkaline Phosphatase 86 U/L (45-117) 09/23/20 TP 5.6 gm/dl (6.4-8.2) L 09/23/20 Albumin 2.7 gm/dl (3.4-5.0) L 09/23/20 Globulin 2.9 gm/dl (2.5-4.0) 09/23/20 Albumin/Globulin Ratio 0.9 (0.9-2) 09/23/20 Calcium Level 8.0 mg/dl (8.5-10.1) L 09/23/20 04:43 09/23/20 Prothromb Time International Ratio 1.4 (0.9-1.1) H 09/22/20 20:31 09/22/20 Microbiology 09/22/20 01:46 Aerobic Blood Culture - Preliminary Blood No growth in Aerobic bottle after 24 hours. Anaerobic Blood Culture - Preliminary No growth in Anaerobic bottle after 24 hours. 09/21/20 23:15 Aerobic Blood Culture - Preliminary Blood Gram negative bacilli Anaerobic Blood Culture - Preliminary Gram negative bacilli Diagnostic Findings (Past 24 Hours) Abdomen/Pelvis CT 09/22/20 00:18 CT abd pelvis IV con only CLINICAL HISTORY: Right flank pain COMPARISON STUDY: 09/04/2015 TECHNIQUE: The patient was scanned in a dynamic helical fashion during intravenous administration of 118 cc of Optiray 320 A dose lowering technique was utilized adhering to the principles of ALARA. CT DOSE: FINDINGS: Lower chest: The heart is enlarged. There are coronary artery calcifications. There are bilateral calcified pleural plaques. There are bibasilar airspace opacities, likely atelectatic although an infectious/inflammatory processes c ould appear similar. Liver: There is periportal edema, likely secondary to aggressive hydration. Gallbladder: The gallbladder is distended with borderline wall thickening. There is trace pericholecystic fluid. There is an equivocal common bile duct filling defect. GI consultation is recommended in follow-up. MRCP/ERCP should be considered. Spleen: Normal in size and attenuation. Pancreas: There is no pancreatic ductal dilatation. There is fluid/edema inferior to the pancreas and adjacent the pancreatic head. Clinical correlation with regards to pancreatitis recommended. Adrenal glands: Unremarkable. Kidneys: There is 16mm left renal cortical cyst. No solid renal masses are visualized. There is no hydronephrosis Bowel: There are no transition zone to indicate bowel obstruction. There is extensive colonic diverticulosis. There are no acute peridiverticular inflammatory changes. By history the appendix is surgically absent. Peritoneum: There is minimal peritoneal fluid. There is no free intraperitoneal air. There is a fat-containing periumbilical hernia. Vasculature: The abdominal aorta is normal in course and caliber. Adenopathy: None. Pelvic viscera: There is bladder wall thickening. There is a bladder diverticulum. Skeletal structures: No destructive skeletal lesions are visualized. There is severe L1 compression fracture with minimal retropulsion. This is likely old. There is a superior endplate L3 compression fracture likely old. IMPRESSION: 1. Distended gallbladder with borderline wall thickening. There is possible increased intraluminal pressure. Clinical correlation with regards to cholecystitis recommended 2. Probable small distal common bile duct filling defect, concerning for choledocholithiasis.. GI consultation and consideration of ERCP/MRCP recommended 3. Fluid surrounding the inferior margin the pancreas and pancreatic head extending into the mesentery. Clinical correlation with regards to acute pancreatitis recommended. 4. Extensive colonic diverticulosis. No current evidence of acute diverticulitis 5. Fat-containing periumbilical hernia 6. Bladder wall thickening and trabeculation. Bladder diverticulum. ACT 112: Negative or not required by law. Electronically signed by: David Dejesus M.D. 09/22/2020 8:09 AM Cholangiopancreatography MRI 09/22/20 05:38 MRCP CLINICAL HISTORY: Pancreatitis. COMPARISON STUDY: Abdominal CT dated 09/22/2020. TECHNIQUE: Abdominal MRCP is performed utilizing various T2-weighted sequences in the axial and coronal planes. IV contrast was not administered for this examination. 3-D reformats are created and assessed. The examination is significantly compromised by motion artifact. FINDINGS: The gallbladder is distended. The gallbladder wall is thickened and edematous and there is pericholecystic inflammation and fluid. Findings are typical for acute cholecystitis. The common bile duct is dilated measuring up to 10 mm diameter. There is a 7 mm filling defect in the distal common bile duct above the ampulla, best seen on coronal image 107 consistent with choledocholithiasis. There is mild intrahepatic biliary ductal dilatation. The pancreatic duct is normal in caliber. The unenhanced liver is grossly unremarkable noting periportal edema. The unenhanced spleen and adrenal glands are normal as imaged. The kidneys demonstrate cortical atrophy and are without hydronephrosis. Cortical and parapelvic cysts on the left measure up to 1.7 cm. The abdominal aorta is ectatic noting atherosclerotic plaque and irregularity. There is no evidence of bowel obstruction. There is a small volume of upper abdominal ascites. Inflammatory change and fluid is seen around the pancreatic head. There are small pleural effusions with airspace consolidation at the lung bases. The heart is enlarged noting a small pericardial effusion. No destructive bony process is identified. IMPRESSION: 1. There is a 7 mm filling defect within the distal common bile duct consistent with choledocholithiasis. There is associated intra- and extrahepatic biliary ductal dilatation. 2. Findings are consistent with acute cholecystitis. 3. Inflammatory change and fluid around the pancreatic head may represent pancreatitis as clinically suspected. 4. There is a small volume of upper abdominal ascites. 5. Trace pleural effusions with bibasilar consolidation. Correlate clinically for evidence of pneumonia/aspiration pneumonitis. 6. Cardiomegaly and small pericardial effusion. 7. Additional findings as above. Dictated: 09/22/2020 1:55 PM Transcribed: 09/22/2020 2:43 PM Suzanne [id number] [facility] Electronically signed by: Dean Mccall M.D. 09/22/2020 2:49 PM Endo Retro Cholangiopancreatogram 09/22/20 15:47 [place] ERCP biliary ductal CLINICAL HISTORY: Choledocholithiasis. COMPARISON STUDY: MRCP 09/22/2020. FLUOROSCOPY TIME: 23 seconds. FINDINGS: 10 fluoroscopic spot images of the right upper quadrant were submitted. The ampulla was cannulated and contrast was injected into the dilated common bile duct. A balloon sweep was performed followed by placement of a common bile duct stent which appears in good position. IMPRESSION: Fluoroscopy provided for ERCP. ACT 112: Negative or not required by law. Electronically signed by: Mauro Troncoso M.D. 09/22/2020 6:07 PM Chest X-Ray 09/22/20 20:00 XR chest 1V portable HISTORY: Postop. Shortness of breath. COMPARISON: Chest 09/21/2020. FINDINGS: Nasogastric tube terminates at the expected location of the distal esophagus. No pneumothorax. Small bilateral pleural fusions and bibasilar densit ies have progressed. There is mild central pulmonary basilar congestion without overt edema. The heart remains enlarged. IMPRESSION: 1. Nasogastric tube terminates at the distal esophagus. This should be advanced by approximately 5 to 10 cm. 2. Small bilateral pleural effusions and bibasilar densities. This could represent atelectasis or pneumonia. 3. Mild central pulmonary vascular congestion without overt edema. ACT 112: Negative or not required by law. Electronically signed by: Mauro Troncoso M.D. 09/22/2020 8:27 PM KUB X-Ray 09/22/20 20:00 KUB HISTORY: Evaluate nasogastric tube placement. Postop. COMPARISON: Abdomen and pelvis CT 09/22/2020. FINDINGS: Initial images demonstrate a nasogastric tube at the gastroesophageal junction. The final image demonstrates a nasogastric tube within the body the stomach. Bibasilar densities are noted. There are few mildly dilated gas-filled loops of small bowel within the abdomen. This favors a postoperative ileus at this time. Surgical drain seen within the right upper quadrant. There are, bile duct stents noted. Prior cholecystectomy. No renal calculi. No ureteral calculi. No pneumoperitoneum or pneumatosis. IMPRESSION: 1. Nasogastric tube terminates in the stomach. 2. Postoperative changes within the right upper quadrant consistent with a recent cholecystectomy. 3. Mildly dilated gas-filled loops of small bowel. This favors a postoperative ileus. ACT 112: Negative or not required by law. Electronically signed by: Mauro Troncoso M.D. 09/22/2020 8:29 PM I & O Totals 24 Hours 09/22/20 09/23/20 09/24/20 06:59 06:59 06:59 Intake Total 1670.25 / 1670.25 6111 / 6111 Output Total 1485 / 1485 Balance 1670.25 / 1670.25 4626 / 4626 Cumulative 09/21/20 22:58 thru 09/23/20 06:52 Intake Total 7781.25 Output Total 1485 Balance 6296.25 RT Ventilator Mngmt (Last Documented) Ventilator Ordered Settings Respiratory Rate 19 09/23/20 06:30 Ventilator - PT Measurements Respiratory Rate 19 Coding Level of Care Code 97584 [facility] Care [facility] 3 Diagnoses Acute cholecystitis K81.0 Acute pancreatitis K85.00 Acute pancreatitis complication: no infection or necrosis Pancreatitis type: idiopathic Severe sepsis with septic shock A41.9; R65.21 Time Spent (min) 45 (1) Acute pancreatitis Acute pancreatitis complication: no infection or necrosis Pancreatitis type: idiopathic Qualified Code(s): K85.00 - Idiopathic acute pancreatitis without necrosis or infection
[2020-09-23] MEDS ORDERED: CALCIUM GLUCONATE 10% 2,000 MG in SODIUM CHLORIDE 0.9% 50 ML IV ONE (07:52)
[2020-09-23] MEDS: FAMOTIDINE 20 MG in SYRINGE 3 ML IV SCH ×2 (09:07→20:21)
[2020-09-23] MEDS: HEPARIN SOD 5,000 UNIT/0.5 ML VIAL SQ SCH ×2 (09:07→20:21)
[2020-09-23] MEDS: TAMSULOSIN HCL 0.4 MG CAP PO SCH (09:07)
--- NOTE | 2020-09-23 10:50 | Hospitalist Progress Note ---
Date of Service September 23, 2020 Assessment & Plan (1) Acute pancreatitis: Dakotah Marie is a 89 y/o male w/ PMHx of BPH, asbestos exposure, and COPD who presented with acute onset R sided abdominal pain, found to have acute gallstone pancreatitis. Acute gallstone pancreatitis: - elevated lipase, LFTs, direct bili in addition to CT evidence of pancreatitis and gallbladder distension concerning for acute pancreatitis in setting of choledocholithiasis - POD #1 s/p ERCP and laparoscopic cholecystectomy - GI and gen surg consulted - MRCP: confirmed choledocholithiasis - ERCP (09/22): 10mm stone removed. 2 biliary stents placed into common bile duct. findings consistent w/ choledocholithiasis and cholangitis. - Continue IV hydration, currently at maintenance rate 125ml/hr. - NG tube in place given relative paucity of bowel motility following surgery -Per general surgery as bowel movements continue to improve consideration of pulling NG tube -Potentially later today given low output overnight - Transition out of the ICU to med telemetry - N.p.o. at this time until NG tube removed - Advance diet following improvement in bowel function Sepsis POA with Gram neg Bacteremia sec to acute cholangitis and in setting of pancreatitis: - Elevated WBC, with subsequent downtrend while on antibiotics - Blood culture positive for gram negative bacilli (1 out of 2) - continue IV Zosyn Septic shock: - Previous borderline low blood pressures on 09/22 seemingly resolved throughout the night and into today with IV fluids. - home antihypertensives held COPD: - CXR evidence of bibasilar airspace opacities may be fluid vs atelectasis. R lower lobe opacity also noted raising concern for possible pneumonia. Pleural plaques and interstitial disease also noted. - Zosyn as above would also cover pneumonia if present - supplemental O2 as needed BPH with obstruction/lower urinary tract symptoms: - Hold home flomax at this time Diet: NPO ppx: 40 mg sq lovenox famotidine 20 mg IV BID Fluids: NSS 120 mls/ hr Code: full code (2) Acute cholecystitis: (3) Chronic obstructive pulmonary disease: Admission and Anticipated Discharge Date Admission Date: September 22, 2020 Supervising Physician Co-Signing Physician Notes Resident Physician Supervision Note: I independently interviewed and examined the patient and verified the lyles history and physical, reviewed labs and image studies and agree with resident Dr. Zarate findings and care plan. Subjective Following surgery last night patient was transitioned to the ICU for close hemodynamic monitoring in the setting of hypotension and hypothermia in the perioperative window. Patient did well overnight with no acute concerns this morning. Abdominal pain has resolved, has had minimal output from his NG tube. No longer feeling distended or nauseous and is interested in eating as soon as he can. Review of Systems Review of Systems: All systems reviewed & are unremarkable except as noted in Subjective Physical Exam Constitutional: WD/WN, vitals as above Eyes: PERRL, conjunctivae normal, anicteric sclerae Respiratory: normal respiratory effort, lungs clear to auscultation Cardiovascular: Rate/Rhythm: regular rate and regular rhythm Heart Sounds: no gallop, no murmur and no cardiac rub Vessels: normal peripheral pulses; no JVD Extremities: no edema Gastrointestinal (Abdomen): Inspection/Auscultation: abdomen not distended and + abnormal bowel sounds (absent) Percussion/Palpation: abdomen soft; abdomen nontender and no guarding Skin: no rashes, warm and dry Psychiatric: Orientation: alert and oriented x 3 Results & Data Results & Data ([facility]) Vital Signs (Past 12 Hours) Vital Signs Temp Pulse Resp BP Pulse Ox 09/23/20 07:30 36.7 C 80 19 114/64 96 09/23/20 07:28 86 09/23/20 07:00 36.7 C 83 20 108/69 96 09/23/20 06:30 36.7 C 93 H 19 108/70 94 09/23/20 06:00 36.7 C 83 16 101/54 L 92 09/23/20 05:30 36.8 C 80 17 96/62 L 93 09/23/20 05:00 36.8 C 71 18 106/58 L 94 09/23/20 04:30 36.8 C 77 16 96/55 L 95 09/23/20 04:00 36.8 C 64 19 90/63 L 95 09/23/20 03:30 36.9 C 78 16 81/46 L 94 09/23/20 03:00 37.0 C 70 16 92/48 L 94 09/23/20 02:30 37.0 C 77 15 87/44 L 94 09/23/20 02:28 37.0 C 70 15 82/47 L 93 09/23/20 02:05 37.1 C 79 17 83/38 L 92 09/23/20 02:04 37.1 C 74 19 79/44 L 89 L 09/23/20 02:00 37.1 C 79 16 84/46 L 90 09/23/20 01:31 37.1 C 83 23 95 09/23/20 01:30 37.0 C 66 22 108/62 98 09/23/20 01:27 37.1 C 66 21 103/57 L 97 09/23/20 01:19 37.1 C 66 21 81/49 L 96 09/23/20 01:00 37.1 C 71 17 90/48 L 96 09/23/20 00:30 37.1 C 70 18 101/57 L 97 09/23/20 00:00 37.1 C 81 17 103/60 97 09/22/20 23:45 37.1 C 66 21 99/54 L 97 09/22/20 23:30 37.1 C 66 20 104/54 L 97 09/22/20 23:15 37.1 C 66 21 104/57 L 98 09/22/20 23:00 37.1 C 70 21 109/59 L 100 Laboratory Results 09/23/20 09/23/20 09/23/20 Range/Units 05:28 04:43 04:43 WBC (4.8-10.8) K/uL RBC (4.7-6.1) M/uL Hgb (14.0-18.0) g/dL Hct (42-52) % MCV (80-100) fL MCH (25-34) pg MCHC (32-36) g/dL RDW Std Deviation (36.4-46.3) fL RDW Coeff of Andre (11.5-14.5) % Plt Count (130-400) K/uL MPV (7.4-10.4) fL Immature Gran % (Auto) % Neut % (Auto) % Lymph % (Auto) % Dukes % (Auto) % Eos % (Auto) % Baso % (Auto) % Neut # (Auto) (1.4-6.5) K/uL Lymph # (Auto) (1.2-3.4) K/uL Dukes # (Auto) (0.11-0.59) K/uL Eos # (Auto) (0-0.5) K/uL Baso # (Auto) (0-0.2) K/uL Immature Gran # (Auto) (0.00-0.02) K/uL Platelet Estimate (Normal) PT (9.0-12.0) Seconds INR (0.9-1.1) Sodium 140 (136-145) mmol/L Potassium 3.8 (3.5-5.1) mmol/L Chloride 111 H (98-107) mmol/L Carbon Dioxide 26 (21-32) mmol/L Anion Gap 3.0 (3-11) BUN 26 H (7-18) mg/dl Creatinine 1.06 (0.6-1.4) mg/dl Est Cr Clr Drug Dosing 57.3 ml/min Est GFR ( Amer) 72.3 ml/min Est GFR (Non-Af Amer) 62.4 ml/min BUN/Creatinine Ratio 24.8 H (10-20) Glucose 77 (70-99) mg/dl POC Glucose 75 (70-99) mg/dl Lactate 1.5 (0.4-2.0) mmol/L Calcium 8.0 L (8.5-10.1) mg/dl Total Bilirubin 1.8 H (0.2-1) mg/dl AST 82 H (15-37) U/L ALT 84 H (12-78) U/L Alkaline Phosphatase 86 (45-117) U/L Total Protein 5.6 L (6.4-8.2) gm/dl Albumin 2.7 L (3.4-5.0) gm/dl Globulin 2.9 (2.5-4.0) gm/dl Albumin/Globulin Ratio 0.9 (0.9-2) Lipase 3903 H (73-393) U/L Procalcitonin (0-0.5) ng/ml Nasal Screen MRSA (PCR) (Negative) Blood Type Antibody Screen 09/23/20 09/22/20 09/22/20 Range/Units 04:43 23:25 21:44 WBC 15.80 H (4.8-10.8) K/uL RBC 3.57 L (4.7-6.1) M/uL Hgb 11.6 L (14.0-18.0) g/dL Hct 35.2 L (42-52) % MCV 98.6 (80-100) fL MCH 32.5 (25-34) pg MCHC 33.0 (32-36) g/dL RDW Std Deviation 50.4 H (36.4-46.3) fL RDW Coeff of Andre 14.1 (11.5-14.5) % Plt Count 91 L (130-400) K/uL MPV 11.1 H (7.4-10.4) fL Immature Gran % (Auto) 0.3 % Neut % (Auto) 86.1 % Lymph % (Auto) 9.4 % Dukes % (Auto) 4.0 % Eos % (Auto) 0.1 % Baso % (Auto) 0.1 % Neut # (Auto) 13.61 H (1.4-6.5) K/uL Lymph # (Auto) 1.49 (1.2-3.4) K/uL Dukes # (Auto) 0.63 H (0.11-0.59) K/uL Eos # (Auto) 0.02 (0-0.5) K/uL Baso # (Auto) 0.01 (0-0.2) K/uL Immature Gran # (Auto) 0.04 H (0.00-0.02) K/uL Platelet Estimate Decreased L (Normal) PT (9.0-12.0) Seconds INR (0.9-1.1) Sodium (136-145) mmol/L Potassium (3.5-5.1) mmol/L Chloride (98-107) mmol/L Carbon Dioxide (21-32) mmol/L Anion Gap (3-11) BUN (7-18) mg/dl Creatinine (0.6-1.4) mg/dl Est Cr Clr Drug Dosing ml/min Est GFR ( Amer) ml/min Est GFR (Non-Af Amer) ml/min BUN/Creatinine Ratio (10-20) Glucose (70-99) mg/dl POC Glucose 82 (70-99) mg/dl Lactate (0.4-2.0) mmol/L Calcium (8.5-10.1) mg/dl Total Bilirubin (0.2-1) mg/dl AST (15-37) U/L ALT (12-78) U/L Alkaline Phosphatase (45-117) U/L Total Protein (6.4-8.2) gm/dl Albumin (3.4-5.0) gm/dl Globulin (2.5-4.0) gm/dl Albumin/Globulin Ratio (0.9-2) Lipase (73-393) U/L Procalcitonin 46.12 H (0-0.5) ng/ml Nasal Screen MRSA (PCR) (Negative) Blood Type Antibody Screen 09/22/20 09/22/20 09/22/20 Range/Units 21:44 21:18 21:01 WBC (4.8-10.8) K/uL RBC (4.7-6.1) M/uL Hgb (14.0-18.0) g/dL Hct (42-52) % MCV (80-100) fL MCH (25-34) pg MCHC (32-36) g/dL RDW Std Deviation (36.4-46.3) fL RDW Coeff of Andre (11.5-14.5) % Plt Count (130-400) K/uL MPV (7.4-10.4) fL Immature Gran % (Auto) % Neut % (Auto) % Lymph % (Auto) % Dukes % (Auto) % Eos % (Auto) % Baso % (Auto) % Neut # (Auto) (1.4-6.5) K/uL Lymph # (Auto) (1.2-3.4) K/uL Dukes # (Auto) (0.11-0.59) K/uL Eos # (Auto) (0-0.5) K/uL Baso # (Auto) (0-0.2) K/uL Immature Gran # (Auto) (0.00-0.02) K/uL Platelet Estimate (Normal) PT (9.0-12.0) Seconds INR (0.9-1.1) Sodium (136-145) mmol/L Potassium (3.5-5.1) mmol/L Chloride (98-107) mmol/L Carbon Dioxide (21-32) mmol/L Anion Gap (3-11) BUN (7-18) mg/dl Creatinine (0.6-1.4) mg/dl Est Cr Clr Drug Dosing ml/min Est GFR ( Amer) ml/min Est GFR (Non-Af Amer) ml/min BUN/Creatinine Ratio (10-20) Glucose (70-99) mg/dl POC Glucose 89 (70-99) mg/dl Lactate 3.3 H* (0.4-2.0) mmol/L Calcium (8.5-10.1) mg/dl Total Bilirubin (0.2-1) mg/dl AST (15-37) U/L ALT (12-78) U/L Alkaline Phosphatase (45-117) U/L Total Protein (6.4-8.2) gm/dl Albumin (3.4-5.0) gm/dl Globulin (2.5-4.0) gm/dl Albumin/Globulin Ratio (0.9-2) Lipase (73-393) U/L Procalcitonin (0-0.5) ng/ml Nasal Screen MRSA (PCR) (Negative) Blood Type B Negative Antibody Screen NEGATIVE 09/22/20 09/22/20 09/22/20 Range/Units 20:35 20:31 20:31 WBC (4.8-10.8) K/uL RBC (4.7-6.1) M/uL Hgb (14.0-18.0) g/dL Hct (42-52) % MCV (80-100) fL MCH (25-34) pg MCHC (32-36) g/dL RDW Std Deviation (36.4-46.3) fL RDW Coeff of Andre (11.5-14.5) % Plt Count (130-400) K/uL MPV (7.4-10.4) fL Immature Gran % (Auto) % Neut % (Auto) % Lymph % (Auto) % Dukes % (Auto) % Eos % (Auto) % Baso % (Auto) % Neut # (Auto) (1.4-6.5) K/uL Lymph # (Auto) (1.2-3.4) K/uL Dukes # (Auto) (0.11-0.59) K/uL Eos # (Auto) (0-0.5) K/uL Baso # (Auto) (0-0.2) K/uL Immature Gran # (Auto) (0.00-0.02) K/uL Platelet Estimate (Normal) PT 13.6 H (9.0-12.0) Seconds INR 1.4 H (0.9-1.1) Sodium 139 (136-145) mmol/L Potassium 4.1 (3.5-5.1) mmol/L Chloride 108 H (98-107) mmol/L Carbon Dioxide 25 (21-32) mmol/L Anion Gap 6.0 (3-11) BUN 24 H (7-18) mg/dl Creatinine 1.15 (0.6-1.4) mg/dl Est Cr Clr Drug Dosing 48.7 ml/min Est GFR ( Amer) 65.5 ml/min Est GFR (Non-Af Amer) 56.5 ml/min BUN/Creatinine Ratio 20.5 H (10-20) Glucose 93 (70-99) mg/dl POC Glucose (70-99) mg/dl Lactate (0.4-2.0) mmol/L Calcium 8.6 (8.5-10.1) mg/dl Total Bilirubin 2.4 H (0.2-1) mg/dl AST 107 H (15-37) U/L ALT 102 H (12-78) U/L Alkaline Phosphatase 109 (45-117) U/L Total Protein 6.2 L (6.4-8.2) gm/dl Albumin 2.7 L (3.4-5.0) gm/dl Globulin 3.5 (2.5-4.0) gm/dl Albumin/Globulin Ratio 0.8 L (0.9-2) Lipase (73-393) U/L Procalcitonin (0-0.5) ng/ml Nasal Screen MRSA (PCR) Negative (Negative) Blood Type Antibody Screen 09/22/20 Range/Units 20:31 WBC 18.96 H (4.8-10.8) K/uL RBC 4.06 L (4.7-6.1) M/uL Hgb 12.9 L (14.0-18.0) g/dL Hct 40.3 L (42-52) % MCV 99.3 (80-100) fL MCH 31.8 (25-34) pg MCHC 32.0 (32-36) g/dL RDW Std Deviation 51.1 H (36.4-46.3) fL RDW Coeff of Andre 14.1 (11.5-14.5) % Plt Count 100 L (130-400) K/uL MPV 10.8 H (7.4-10.4) fL Immature Gran % (Auto) 0.4 % Neut % (Auto) 89.6 % Lymph % (Auto) 4.2 % Dukes % (Auto) 5.7 % Eos % (Auto) 0.0 % Baso % (Auto) 0.1 % Neut # (Auto) 17.00 H (1.4-6.5) K/uL Lymph # (Auto) 0.79 L (1.2-3.4) K/uL Dukes # (Auto) 1.09 H (0.11-0.59) K/uL Eos # (Auto) 0.00 (0-0.5) K/uL Baso # (Auto) 0.01 (0-0.2) K/uL Immature Gran # (Auto) 0.07 H (0.00-0.02) K/uL Platelet Estimate (Normal) PT (9.0-12.0) Seconds INR (0.9-1.1) Sodium (136-145) mmol/L Potassium (3.5-5.1) mmol/L Chloride (98-107) mmol/L Carbon Dioxide (21-32) mmol/L Anion Gap (3-11) BUN (7-18) mg/dl Creatinine (0.6-1.4) mg/dl Est Cr Clr Drug Dosing ml/min Est GFR ( Amer) ml/min Est GFR (Non-Af Amer) ml/min BUN/Creatinine Ratio (10-20) Glucose (70-99) mg/dl POC Glucose (70-99) mg/dl Lactate (0.4-2.0) mmol/L Calcium (8.5-10.1) mg/dl Total Bilirubin (0.2-1) mg/dl AST (15-37) U/L ALT (12-78) U/L Alkaline Phosphatase (45-117) U/L Total Protein (6.4-8.2) gm/dl Albumin (3.4-5.0) gm/dl Globulin (2.5-4.0) gm/dl Albumin/Globulin Ratio (0.9-2) Lipase (73-393) U/L Procalcitonin (0-0.5) ng/ml Nasal Screen MRSA (PCR) (Negative) Blood Type Antibody Screen Medications Administered Current Inpatient Medications Heparin Sodium (Porcine) (Heparin Sod 5,000 Unit/0.5 Ml Vial) 5,000 units SQ Q12 MARGOTH Stop: 10/23/20 08:59 Last Admin: 09/23/20 09:07 Dose: 5,000 units Documented by: Hydromorphone HCl (Hydromorphone Inj 0.5 Mg/0.5 Ml Syr) 0.5 mg IV Q15M PRN PRN Reason: Pain Stop: 10/06/20 01:58 Sodium Chloride (Nss 1000ml) 1,000 mls @ 120 mls/hr IV .Q8H20M MARGOTH Stop: 10/22/20 05:37 Last Admin: 09/23/20 10:18 Dose: 120 mls/hr Documented by: Piperacillin Sod/Tazobactam (Sod 3.375 gm/ Dextrose) 115 mls @ 28.75 mls/hr IV Q8H COUNT INCLUDES THE [facility]; Protocol Stop: 10/02/20 07:59 Last Infusion: 09/23/20 11:46 Dose: Infused Documented by: Famotidine 20 mg/ Syringe 5 mls @ 2.5 mls/min IV BID MARGOTH Stop: 10/22/20 20:59 Last Admin: 09/23/20 09:07 Dose: 2.5 mls/min Documented by: Mirabegron (Mirabegron Er 25 Mg Tab) 25 mg PO QPM COUNT INCLUDES THE [facility] Stop: 10/23/20 20:59 Miscellaneous Information (Piperacill/Tazobac Consult Active) 1 ea N/A UD PRN PRN Reason: Consult Stop: 10/22/20 05:37 Ondansetron HCl (Ondansetron Inj 2 Mg/Ml 2 Ml Vial) 4 mg IV Q6H PRN PRN Reason: Nausea Stop: 10/22/20 05:37 Tamsulosin HCl (Tamsulosin Hcl 0.4 Mg Cap) 0.4 mg PO DAILY COUNT INCLUDES THE [facility] Stop: 10/22/20 08:59 Last Admin: 09/23/20 09:07 Dose: Not Given Documented by: Resident Activity Tracking Resident Involvement: Resident Care Provided Care Provided: Adult Hospital Medicine (1) Acute pancreatitis Acute pancreatitis complication: unspecified Pancreatitis type: biliary Qualified Code(s): K85.10 - Biliary acute pancreatitis without necrosis or infection
--- NOTE | 2020-09-23 17:26 | Gastroenterology Progress Note ---
Date of Service September 23, 2020 Assessment & Plan Admission and Anticipated Discharge Date Admission Date: September 22, 2020 Subjective Pt appears to be doing well today. No complaints, + flatus. No abd pain. PE: looks well Abd non tender Labs improved A/P: Cholangitis s/p ERCP / sphincterotomy, biliary and panc stent - Doing well. D/w surgery - d.c NG and begin clears. Will sign off, please reconsult PRN. Results & Data ([facility]) Vital Signs (Past 12 Hours) Vital Signs Temp Pulse Pulse Resp BP BP Pulse Ox 09/23/20 15:51 36.4 C L 100 H 18 116/72 95 09/23/20 13:00 89 09/23/20 12:00 37.0 C 90 17 110/74 95 09/23/20 11:00 37.0 C 82 18 115/75 94 09/23/20 10:00 36.9 C 85 18 114/75 95 09/23/20 09:10 36.8 C 74 19 96 09/23/20 09:00 36.9 C 79 17 113/77 91 09/23/20 08:00 36.8 C 77 16 116/65 94 09/23/20 07:30 36.7 C 80 19 114/64 96 09/23/20 07:28 86 09/23/20 07:00 36.7 C 83 20 108/69 96 09/23/20 06:30 36.7 C 93 H 19 108/70 94 09/23/20 06:00 36.7 C 83 16 101/54 L 92 09/23/20 05:30 36.8 C 80 17 96/62 L 93
[2020-09-23] MEDS: MIRABEGRON ER 25 MG TAB PO SCH (20:20)
[2020-09-24] MEDS: SODIUM CHLORIDE 0.9% 1000ML 1,000 ML IV SCH ×3 (02:30→20:32)
--- NOTE | 2020-09-24 05:45 | Surgery Progress Note ---
Date of Service September 24, 2020 Assessment & Plan (1) Acute pancreatitis: Postoperative day #2 ERCP and laparoscopic cholecystectomy Continue analgesics Continue antiemetics Maintain the patient on liquids for the present time Continue IV fluids until certain oral intake will be adequate Continue antibiotics in the form of Zosyn Continue to mobilize as able. Subcutaneous heparin is in place for DVT prevention Admission and Anticipated Discharge Date Admission Date: September 22, 2020 Supervising Physician Co-Signing Physician Notes pnt s&e, agree with above. POD#2 lap rosa and ercp for cholangitis. doing well, no pain. afvss. abd soft, appropriately ttp. drain with ss drainage. wbc normal, lft's normalizing. hgb/hct stable. advance diet as tolerated, continue abx for sepsis/cholangitis. surgery will follow. Subjective Patient is resting comfortably in bed. He notes he was allowed some clear liquids yesterday which he tolerated well without worsening abdominal pain or nausea vomiting. He did not have a bowel movement since his surgery. He denies any additional complaints. Physical Exam Cardiovascular: Rate/Rhythm: regular rate and regular rhythm Gastrointestinal (Abdomen): Surgical incisions are clean dry and intact. Patient's abdomen is soft and nondistended. Bowel sounds are hypoactive. There is minimal pain with palpation. Results & Data ([facility]) Vital Signs (Past 12 Hours) Vital Signs Temp Pulse Pulse Pulse Resp BP BP 09/24/20 03:52 96 H 09/23/20 22:33 36.7 C 78 18 107/69 09/23/20 19:37 36.7 C 84 18 101/62 Pulse Ox 09/24/20 03:52 09/23/20 22:33 3 L 09/23/20 19:37 95 PG Care Time/CCT Total # of Minutes Spent Total Time Spent with Patient: Total time spent is greater than 50% in coordination of care (as documented) at patient's floor/unit and/or counseling patient: Coding Level of Care Code None Diagnoses Acute pancreatitis K85.00 Acute pancreatitis complication: no infection or necrosis Pancreatitis type: idiopathic (1) Acute pancreatitis Acute pancreatitis complication: no infection or necrosis Pancreatitis type: idiopathic Qualified Code(s): K85.00 - Idiopathic acute pancreatitis without necrosis or infection
[2020-09-24 06:15] LABS: Hematocrit (blood only) 34.4 % (42-52); Mean Corpuscular Hemoglobin 31.5 pg (25-34); Mean Corpuscular Volume 98.6 fL (80-100); RDW Coefficient of Variation 14.2 % (11.5-14.5); RDW Standard Deviation 50.8 fL (36.4-46.3); Red Blood Count 3.49 M/uL (4.7-6.1); White Blood Count 9.49 K/uL (4.8-10.8)
[2020-09-24 06:17] LABS: Mean Platelet Volume 10.8 fL (7.4-10.4); Platelet Count 83 K/uL (130-400)
--- NOTE | 2020-09-24 06:31 | Electrocardiogram Report ---
Test Reason : Blood Pressure : / mmHG Vent. Rate : 066 BPM Atrial Rate : 192 BPM P-R Int : 000 ms QRS Dur : 114 ms QT Int : 404 ms P-R-T Axes : 000 -17 -10 degrees QTc Int : 423 ms Atrial flutter with variable A-V block Nonspecific T wave abnormality Abnormal ECG When compared with ECG of 22-SEP-2020 00:15, Nonspecific T wave abnormality now evident in Anterior leads QT has shortened Confirmed by Brett Rodriguez ([id number]) on 09/24/2020 6:31:39 AM Referred By: REFERRED SELF Confirmed By:Brett Rodriguez
--- NOTE | 2020-09-24 06:37 | Electrocardiogram Report ---
Test Reason : Blood Pressure : / mmHG Vent. Rate : 067 BPM Atrial Rate : 202 BPM P-R Int : 000 ms QRS Dur : 114 ms QT Int : 368 ms P-R-T Axes : 000 -22 015 degrees QTc Int : 388 ms Atrial flutter with variable A-V block Nonspecific T wave abnormality Abnormal ECG When compared with ECG of 23-SEP-2020 01:28, No significant change Confirmed by Brett Rodriguez ([id number] on 09/24/2020 6:36:59 AM Referred By: REFERRED SELF Confirmed By:Brett Rodriguez
[2020-09-24 06:39] LABS: Basophils # (auto) 0.01 K/uL (0-0.2); Basophils % (auto) 0.1 %; Eosinophils # (auto) 0.14 K/uL (0-0.5); Eosinophils % (auto) 1.5 %; Immature Granulocytes # (auto) 0.03 K/uL (0.00-0.02); Immature Granulocytes % (auto) 0.3 %; Lymphocytes # (auto) 1.06 K/uL (1.2-3.4); Lymphocytes % (auto) 11.2 %; Monocytes # (auto) 0.32 K/uL (0.11-0.59); Monocytes % (auto) 3.4 %; Neutrophils # (auto) 7.93 K/uL (1.4-6.5); Neutrophils % (auto) 83.5 %
[2020-09-24 06:47] LABS: Albumin Level 2.5 gm/dl (3.4-5.0); Creatinine Clr Calc Pharmacy 73.4 ml/min; Est GFR (African American) 91.1 ml/min; Est GFR (Non-African American) 78.6 ml/min; Potassium 3.6 mmol/L (3.5-5.1)
[2020-09-24 06:52] LABS: Albumin Globulin Ratio 0.8 (0.9-2); Bilirubin,Total 1.3 mg/dl (0.2-1); Total Protein 5.5 gm/dl (6.4-8.2)
[2020-09-24] MEDS: PIPERACILLIN/TAZOBACTAM 3.375 GM in DEXTROSE 5% 100 ML IV SCH (10:07)
--- NOTE | 2020-09-24 10:08 | Hospitalist Progress Note ---
Date of Service September 24, 2020 Assessment & Plan (1) Acute pancreatitis: Dakotah Marie is a 89 y/o male w/ PMHx of BPH, asbestos exposure, and COPD who presented with acute onset R sided abdominal pain, found to have acute gallstone pancreatitis. Acute gallstone pancreatitis: - elevated lipase, LFTs, direct bili in addition to CT evidence of pancreatitis and gallbladder distension concerning for acute pancreatitis in setting of choledocholithiasis - POD #2 s/p ERCP and laparoscopic cholecystectomy - MRCP: confirmed choledocholithiasis - ERCP (09/22): 10mm stone removed. 2 biliary stents placed into common bile duct. findings consistent w/ choledocholithiasis and cholangitis - Liver function tests continue to improve daily - Continue IV hydration, currently at maintenance rate 100ml/hr. - NG tube removed yesterday evening, tolerated clears overnight without complication - Advance diet to full liquids at this time Sepsis POA with E coli Bacteremia sec to cholecystitis: - Elevated WBC, with subsequent downtrend while on antibiotics - Blood culture positive for E. coli (1 out of 2) - Transitioned from Zosyn to Unasyn 3 g q6h for continued coverage Hypotension: - Previous borderline low blood pressures on 09/22 seemingly resolved throughout the night and into today - home antihypertensives held at this time given normal BP Acute respiratory failure with hypoxia - O2 need dropped to 3L COPD: - CXR evidence of bibasilar airspace opacities may be fluid vs atelectasis. R lower lobe opacity also noted raising concern for possible pneumonia. Pleural plaques and interstitial disease also noted. - Zosyn as above would also cover pneumonia if present BPH with obstruction/lower urinary tract symptoms: - resume home Flomax Diet: Full liquids DVT ppx: 40 mg sq lovenox Code: full code (2) Acute cholecystitis: (3) Chronic obstructive pulmonary disease: Admission and Anticipated Discharge Date Admission Date: September 22, 2020 Supervising Physician Co-Signing Physician Notes Resident Physician Supervision Note: I independently interviewed and examined the patient and verified the lyles history and physical, reviewed labs and image studies and agree with resident Dr. Zarate findings and care plan. Subjective Patient is feeling well this morning, had his NG tube removed last night without complications and tolerated clear liquids. Not having any more nausea, vomiting, abdominal pain. Excited for the potential of getting back to normal food. Has not had bowel movement at this time, but has passed gas. Review of Systems Review of Systems: All systems reviewed & are unremarkable except as noted in Subjective Physical Exam Constitutional: WD/WN, vitals as above Eyes: PERRL, conjunctivae normal, anicteric sclerae Respiratory: normal respiratory effort, lungs clear to auscultation Cardiovascular: Rate/Rhythm: regular rate and regular rhythm Heart Sounds: no gallop, no murmur and no cardiac rub Vessels: normal peripheral pulses; no JVD Extremities: no edema Gastrointestinal (Abdomen): Inspection/Auscultation: abdomen not distended and + abnormal bowel sounds (soft) Percussion/Palpation: abdomen soft; abdomen nontender and no guarding Skin: no rashes, warm and dry Psychiatric: Orientation: alert and oriented x 3 Results & Data Results & Data ([facility]) Vital Signs (Past 12 Hours) Vital Signs Temp Pulse Pulse Pulse Resp BP BP 09/24/20 07:30 36.5 C 96 H 18 117/75 09/24/20 03:52 96 H 09/23/20 22:33 36.7 C 78 18 107/69 Pulse Ox 09/24/20 07:30 96 09/24/20 03:52 09/23/20 22:33 3 L Laboratory Results 09/24/20 09/24/20 Range/Units 05:57 05:57 WBC 9.49 (4.8-10.8) K/uL RBC 3.49 L (4.7-6.1) M/uL Hgb 11.0 L (14.0-18.0) g/dL Hct 34.4 L (42-52) % MCV 98.6 (80-100) fL MCH 31.5 (25-34) pg MCHC 32.0 (32-36) g/dL RDW Std Deviation 50.8 H (36.4-46.3) fL RDW Coeff of Andre 14.2 (11.5-14.5) % Plt Count 83 L (130-400) K/uL MPV 10.8 H (7.4-10.4) fL Immature Gran % (Auto) 0.3 % Neut % (Auto) 83.5 % Lymph % (Auto) 11.2 % Nuckolls % (Auto) 3.4 % Eos % (Auto) 1.5 % Baso % (Auto) 0.1 % Neut # (Auto) 7.93 H (1.4-6.5) K/uL Lymph # (Auto) 1.06 L (1.2-3.4) K/uL Nuckolls # (Auto) 0.32 (0.11-0.59) K/uL Eos # (Auto) 0.14 (0-0.5) K/uL Baso # (Auto) 0.01 (0-0.2) K/uL Immature Gran # (Auto) 0.03 H (0.00-0.02) K/uL Sodium 140 (136-145) mmol/L Potassium 3.6 (3.5-5.1) mmol/L Chloride 112 H (98-107) mmol/L Carbon Dioxide 24 (21-32) mmol/L Anion Gap 4.0 (3-11) BUN 22 H (7-18) mg/dl Creatinine 0.83 (0.6-1.4) mg/dl Est Cr Clr Drug Dosing 73.4 ml/min Est GFR ( Amer) 91.1 ml/min Est GFR (Non-Af Amer) 78.6 ml/min BUN/Creatinine Ratio 27.0 H (10-20) Glucose 62 L (70-99) mg/dl Calcium 8.0 L (8.5-10.1) mg/dl Total Bilirubin 1.3 H (0.2-1) mg/dl AST 52 H (15-37) U/L ALT 65 (12-78) U/L Alkaline Phosphatase 83 (45-117) U/L Total Protein 5.5 L (6.4-8.2) gm/dl Albumin 2.5 L (3.4-5.0) gm/dl Globulin 3.0 (2.5-4.0) gm/dl Albumin/Globulin Ratio 0.8 L (0.9-2) Medications Administered Current Inpatient Medications Heparin Sodium (Porcine) (Heparin Sod 5,000 Unit/0.5 Ml Vial) 5,000 units SQ Q 12 MARGOTH Stop: 10/23/20 08:59 Last Admin: 09/24/20 10:11 Dose: 5,000 units Documented by: Hydromorphone HCl (Hydromorphone Inj 0.5 Mg/0.5 Ml Syr) 0.5 mg IV Q15M PRN PRN Reason: Pain Stop: 10/06/20 01:58 Sodium Chloride (Nss 1000ml) 1,000 mls @ 120 mls/hr IV .Q8H20M [facility] Stop: 10/22/20 05:37 Last Admin: 09/24/20 10:49 Dose: 120 mls/hr Documented by: Piperacillin Sod/Tazobactam (Sod 3.375 gm/ Dextrose) 115 mls @ 28.75 mls/hr IV Q8H [facility]; Protocol Stop: 10/02/20 07:59 Last Admin: 09/24/20 10:07 Dose: 28.8 mls/hr Documented by: Famotidine 20 mg/ Syringe 5 mls @ 2.5 mls/min IV BID [facility] Stop: 10/22/20 20:59 Last Admin: 09/24/20 10:09 Dose: 2.5 mls/min Documented by: Mirabegron (Mirabegron Er 25 Mg Tab) 25 mg PO QPM [facility] Stop: 10/23/20 20:59 Last Admin: 09/23/20 20:20 Dose: 25 mg Documented by: Miscellaneous Information (Piperacill/Tazobac Consult Active) 1 ea N/A UD PRN PRN Reason: Consult Stop: 10/22/20 05:37 Ondansetron HCl (Ondansetron Inj 2 Mg/Ml 2 Ml Vial) 4 mg IV Q6H PRN PRN Reason: Nausea Stop: 10/22/20 05:37 Tamsulosin HCl (Tamsulosin Hcl 0.4 Mg Cap) 0.4 mg PO DAILY [facility] Stop: 10/22/20 08:59 Last Admin: 09/24/20 10:09 Dose: 0.4 mg Documented by: Resident Activity Tracking Resident Involvement: Resident Care Provided Care Provided: Adult Hospital Medicine (1) Acute pancreatitis Acute pancreatitis complication: unspecified Pancreatitis type: biliary Qualified Code(s): K85.10 - Biliary acute pancreatitis without necrosis or infection
[2020-09-24] MEDS: TAMSULOSIN HCL 0.4 MG CAP PO SCH (10:09)
[2020-09-24] MEDS: FAMOTIDINE 20 MG in SYRINGE 3 ML IV SCH ×2 (10:09→22:10)
[2020-09-24] MEDS: HEPARIN SOD 5,000 UNIT/0.5 ML VIAL SQ SCH ×2 (10:11→22:11)
--- NOTE | 2020-09-24 11:52 | Gastroenterology Progress Note ---
Date of Service September 24, 2020 Assessment & Plan Admission and Anticipated Discharge Date Admission Date: September 22, 2020 Subjective Feels well, withhout abd pain. VS unremarkable. Abd soft and NT. Labs show continued improvement in LFT's. Further management per surgery. Will sign off. Results & Data ([facility]) Vital Signs (Past 12 Hours) Vital Signs Temp Pulse Pulse Resp BP Pulse Ox 09/24/20 11:28 36.6 C 97 H 20 118/76 96 09/24/20 08:00 84 09/24/20 07:30 36.5 C 96 H 18 117/75 96 09/24/20 03:52 96 H
[2020-09-24] MEDS: ONDANSETRON INJ 2 MG/ML 2 ML VIAL IV PRN ×2 (15:41→23:38)
[2020-09-24] MEDS: AMPICILLIN/SULBACTAM SOD 3,000 MG in 0.9 % SODIUM CHLORIDE 100 ML IV SCH ×2 (17:41→23:46)
[2020-09-24] MEDS: MIRABEGRON ER 25 MG TAB PO SCH (22:11)
[2020-09-25] MEDS: AMPICILLIN/SULBACTAM SOD 3,000 MG in 0.9 % SODIUM CHLORIDE 100 ML IV SCH ×4 (06:03→23:34)
[2020-09-25] MEDS: SODIUM CHLORIDE 0.9% 1000ML 1,000 ML IV SCH (06:31)
--- NOTE | 2020-09-25 06:53 | Hospitalist Progress Note ---
Date of Service September 25, 2020 Assessment & Plan (1) Acute pancreatitis: Dakotah Marie is a 89 y/o male w/ PMHx of BPH, asbestos exposure, and COPD who presented with acute onset R sided abdominal pain, found to have acute gallstone pancreatitis. He is status post ERCP and lap rosa, POD3 Acute gallstone pancreatitis: - elevated lipase, LFTs, direct bili in addition to CT evidence of pancreatitis and gallbladder distension concerning for acute pancreatitis in setting of choledocholithiasis - MRCP: confirmed choledocholithiasis - ERCP (09/22): 10mm stone removed. 2 biliary stents placed into common bile duct. findings consistent w/ choledocholithiasis and cholangitis - Liver function tests continue to improve daily - NG tube removed 09/23 evening. 09/24 evening had increased nausea so downgraded from fulls to clear liquid diet - TOMMY management per gen surg - Advance diet as tolerated; 09/25 dinner will advance to full liquid, low fat - Discontinued IV fluids on 09/25 because tolerating PO intake. Patient's respiratory issues noted by surgery is likely from chronic COPD. Not suggestive of fluid overload at this time. Cumulative 16L in 4L out. - Added BID Miralax for possible constipation s/p surgery COPD, chronic respiratory failure with hypoxia - CXR evidence of bibasilar airspace opacities may be fluid vs atelectasis. R lower lobe opacity also noted raising concern for possible pneumonia. Pleural plaques and interstitial disease also noted. - Unasyn as above would also cover pneumonia if present - not on inhalers. no wheezing noted on exam so will defer at this time. will reexamine in PM - supp O2 as needed Sepsis present on admission with E coli Bacteremia secondary to cholecystitis and cholangitis: - Elevated WBC, with subsequent downtrend while on antibiotics - Blood culture positive for E. coli (1 out of 2). insensitive to augmentin and cefazolin. resistant to ampicillin. sensitive to Unasyn. - Transitioned from Zosyn to Unasyn 3g q6h for continued coverage. continue Unasyn Cirrhotic morphology of liver: - noted by gen surg during lap rosa - f/u as outpatient Hypotension: - Previous transiet low blood pressures on 09/22 (required 1 night of ICU stay after lap rosa) resolved. mildly hypertensive 142/94 AM of 7/5 - home antihypertensives held at this time BPH with obstruction/lower urinary tract symptoms: - resume home Flomax Diet: clear liquids DVT ppx: 5000u sq heparin q12 Code: full code (2) Acute cholecystitis: (3) Chronic obstructive pulmonary disease: (4) Sepsis: (5) Bacteremia: (6) BPH with obstruction/lower urinary tract symptoms: Admission and Anticipated Discharge Date Admission Date: September 22, 2020 Supervising Physician Co-Signing Physician Notes I personally examined the patient and verified all lyles points of history and exam, discussed case, and agree with decision making with Dr Licona. was really nauseated earlier - a bit better now. hasn't eaten yet though. had (+) large BM yesterday followed by a few smaller ones as well vitals noted, fatigued but nad heent nc at mmm breathing unlabored no accessory muscles good effort skin no rashes no pallor or icterus. abd soft nd nt no guarding no rebound gallstone pancreatitis - slowly improving. post choley, post ERCP. advance diet. supportive care. otherwise as above Subjective Nauseated. No abd pain. No appetite. No flatus, but he had diarrhea and decent sized BM yesterday. He does not feel bloated. His diet was downgraded from full to clears overnight. Review of Systems Review of Systems: Constitutional: Denies fever, chills Eyes: Denies blurry vision, vision changes ENT: Denies sore throat, sinus pain Cardiovascular: Denies chest pain, palpitations Respiratory: Denies shortness of breath Gastrointestinal: Denies abdominal pain, constipation. + nausea. Genitourinary: Denies urinary symptoms including dysuria Musculoskeletal: Denies weakness, muscle aches/pain, joint aches/pain Neurological: Denies numbness, tingling, focal weakness. Very slight NOBLE. Physical Exam Physical Exam: General: A&Ox4. NAD. Cooperative. HEENT: Atraumatic, normocephalic. EOMI Pulm: CTAB. -wheezes, -rales, -rhonchi. No respiratory distress. Cardiac: RRR, -mrg. 2+ BLE Abdominal: Mild epigastric TTP, nondistended, soft. RLQ bandage c/d/i. laparatomy scars intact, nonerythematous. Integ: Chronic venous stasis changes. Results & Data Results & Data ([facility]) Vital Signs (Past 12 Hours) Vital Signs Temp Pulse Pulse Resp BP Pulse Ox 09/25/20 05:12 80 09/25/20 03:00 36.6 C 81 19 151/74 H 93 09/24/20 22:09 36.4 C L 92 H 20 129/81 93 Resident Activity Tracking Resident Involvement: Resident Care Provided Care Provided: Adult Hospital Medicine (1) Acute pancreatitis Acute pancreatitis complication: unspecified Pancreatitis type: biliary Grover lified Code(s): K85.10 - Biliary acute pancreatitis without necrosis or infection
[2020-09-25 07:39] LABS: Hematocrit (blood only) 34.7 % (42-52); Hemoglobin 11.3 g/dL (14.0-18.0); Mean Corpuscular Hemoglobin 31.1 pg (25-34); Mean Corpuscular Hgb Conc 32.6 g/dL (32-36); Mean Corpuscular Volume 95.6 fL (80-100); RDW Standard Deviation 49.1 fL (36.4-46.3); Red Blood Count 3.63 M/uL (4.7-6.1); White Blood Count 7.78 K/uL (4.8-10.8)
[2020-09-25 07:48] LABS: Mean Platelet Volume 11.2 fL (7.4-10.4); Platelet Count 93 K/uL (130-400)
[2020-09-25 07:57] LABS: Basophils # (auto) 0.01 K/uL (0-0.2); Basophils % (auto) 0.1 %; Eosinophils # (auto) 0.01 K/uL (0-0.5); Eosinophils % (auto) 0.1 %; Immature Granulocytes # (auto) 0.02 K/uL (0.00-0.02); Immature Granulocytes % (auto) 0.3 %; Lymphocytes # (auto) 0.97 K/uL (1.2-3.4); Lymphocytes % (auto) 12.5 %; Monocytes # (auto) 0.43 K/uL (0.11-0.59); Monocytes % (auto) 5.5 %; Neutrophils # (auto) 6.34 K/uL (1.4-6.5); Neutrophils % (auto) 81.5 %
[2020-09-25 08:20] LABS: Albumin Globulin Ratio 0.8 (0.9-2); Albumin Level 2.6 gm/dl (3.4-5.0); BUN Creatinine Ratio 19.3 (10-20); Bilirubin,Total 1.1 mg/dl (0.2-1); Calcium 8.6 mg/dl (8.5-10.1); Creatinine Clr Calc Pharmacy 82.5 ml/min; Est GFR (African American) 94.9 ml/min; Est GFR (Non-African American) 81.9 ml/min; Globulin 3.4 gm/dl (2.5-4.0); Potassium 3.6 mmol/L (3.5-5.1)
[2020-09-25] MEDS: HEPARIN SOD 5,000 UNIT/0.5 ML VIAL SQ SCH ×2 (09:33→19:40)
[2020-09-25] MEDS: FAMOTIDINE 20 MG in SYRINGE 3 ML IV SCH ×2 (09:33→20:25)
[2020-09-25] MEDS: TAMSULOSIN HCL 0.4 MG CAP PO SCH (09:33)
--- NOTE | 2020-09-25 11:14 | Surgery Progress Note ---
Date of Service September 25, 2020 Assessment & Plan (1) Acute pancreatitis: Postoperative day #3 ERCP and laparoscopic cholecystectomy labs improved cont drain Cont Zosyn can advance diet Subcutaneous heparin is in place for DVT prevention Admission and Anticipated Discharge Date Admission Date: September 22, 2020 Supervising Physician Co-Signing Physician Notes pnt s&e, agree with above. s/p lap rosa and ercp for cholangitis, some respiratory issues over past day. abd soft, sawyer ss. labs normal. diet as tolerated, continue abx. will d/c drain prior to d/c. Subjective not much appetite, some nausea this morning Physical Exam Gastrointestinal (Abdomen): Inspection/Auscultation: + abdominal surgical incision (dry) and + abdominal surgical drain present (50 cc); abdomen not distended Percussion/Palpation: abdomen soft Results & Data ([facility]) Vital Signs (Past 12 Hours) Vital Signs Temp Pulse Pulse Resp BP Pulse Ox 09/25/20 08:09 84 09/25/20 08:00 36.4 C L 77 18 142/94 H 90 09/25/20 05:12 80 09/25/20 03:00 36.6 C 81 19 151/74 H 93 PG Care Time/CCT Total # of Minutes Spent Total Time Spent with Patient: Total time spent is greater than 50% in coordination of care (as documented) at patient's floor/unit and/or counseling patient: Coding Level of Care Code None Diagnoses Acute pancreatitis K85.00 Acute pancreatitis complication: no infection or necrosis Pancreatitis type: idiopathic (1) Acute pancreatitis Acute pancreatitis complication: no infection or necrosis Pancreatitis type: idiopathic Qualified Code(s): K85.00 - Idiopathic acute pancreatitis without necrosis or infection
[2020-09-25] MEDS: POLYETHYLENE (MIRALAX) 17 GM PACK PO SCH ×2 (11:35→19:40)
--- NOTE | 2020-09-25 13:04 | Billing Data ---
Date of Service September 25, 2020 Coding Level of Care Code 92216 Subseq Hosp Care Lvl 3
[2020-09-25] MEDS: ONDANSETRON INJ 2 MG/ML 2 ML VIAL IV PRN (13:39)
[2020-09-25] MEDS: MIRABEGRON ER 25 MG TAB PO SCH (19:40)
[2020-09-26] MEDS: AMPICILLIN/SULBACTAM SOD 3,000 MG in 0.9 % SODIUM CHLORIDE 100 ML IV SCH ×4 (05:31→23:42)
[2020-09-26 07:30] LABS: Hematocrit (blood only) 34.9 % (42-52); Hemoglobin 11.5 g/dL (14.0-18.0); Mean Corpuscular Volume 97.2 fL (80-100); RDW Coefficient of Variation 13.9 % (11.5-14.5); Red Blood Count 3.59 M/uL (4.7-6.1); White Blood Count 7.02 K/uL (4.8-10.8)
--- NOTE | 2020-09-26 07:33 | Hospitalist Progress Note ---
Date of Service September 26, 2020 Assessment & Plan (1) Acute pancreatitis: Dakotah Marie is a 89 y/o male w/ PMHx of BPH, asbestos exposure, and COPD who presented with acute onset R sided abdominal pain, found to have acute gallstone pancreatitis. He is status post ERCP and lap rosa, POD4. Stable, symptoms improving. Acute gallstone pancreatitis: - elevated lipase, LFTs, direct bili in addition to CT evidence of pancreatitis and gallbladder distension concerning for acute pancreatitis in setting of choledocholithiasis - MRCP: confirmed choledocholithiasis - ERCP (09/22): 10mm stone removed. 2 biliary stents placed into common bile duct. findings consistent w/ choledocholithiasis and cholangitis - Liver function tests continue to improve daily - NG tube removed 09/23 evening. 09/24 evening had increased nausea so downgraded from fulls to clear liquid diet - TOMMY management per gen surg - Diet advanced to low fat - Discontinued IV fluids on 09/25 because tolerating PO intake. Patient's respiratory issues noted by surgery is likely from chronic COPD. Not suggestive of fluid overload at this time. Cumulative 18.7L in 5L out. - Added BID Miralax for possible constipation s/p surgery COPD, chronic respiratory failure with hypoxia - CXR evidence of bibasilar airspace opacities may be fluid vs atelectasis. R lower lobe opacity also noted raising concern for possible pneumonia. Pleural plaques and interstitial disease also noted. - Unasyn as above would also cover pneumonia if present - not on inhalers. no wheezing noted on exam so will defer at this time. Sepsis present on admission with E coli Bacteremia secondary to cholecystitis and cholangitis: - Elevated WBC, with subsequent downtrend while on antibiotics - Blood culture positive for E. coli (1 out of 2). insensitive to augmentin and cefazolin. resistant to ampicillin. sensitive to Unasyn. - Transitioned from Zosyn to Unasyn 3g q6h for continued coverage. continue Unasyn - Patient has stayed afebrile. Will likely transition to PO flouroquinolone for total of 2 wk course of tx upon dispo. atrial fibrillation - x2 day on telemetry. rate mostly in the 80s, w/ occasional 90s. - new? onset since the post lap rosa / ercp several days ago that required brief ICU admission for shock - chadsvasc 3 points. will discuss anticoagulation w/ patient. f/u as outpatient hypokalemia - 3.4, repleted Cirrhotic morphology of liver: - noted by gen surg during lap rosa - f/u as outpatient Hypotension: - Previous transient low blood pressures on 09/22 (required 1 night of ICU stay after lap rosa) resolved. mildly hypertensive 140s, 150s systolic on 09/26 - home antihypertensives held at this time BPH with obstruction/lower urinary tract symptoms: - resume home Flomax Diet: low fat DVT ppx: 5000u sq heparin q12 Code: full code Dispo: med/surg w/ tele. likely dispo home on 09/27 (2) Acute cholecystitis: (3) Chronic obstructive pulmonary disease: (4) Sepsis: (5) Bacteremia: (6) BPH with obstruction/lower urinary tract symptoms: Admission and Anticipated Discharge Date Admission Date: September 22, 2020 Supervising Physician Co-Signing Physician Notes I personally examined the patient and verified all lyles points of history and exam, discussed case, and agree with decision making with Dr Licona. Overall feeling better. Main complaint today with some diarrhea after eating, but none has been ongoing. vitals noted, fatigued but nad heent nc at mmm breathing unlabored no accessory muscles good effort skin no rashes no pallor or icterus. abd soft nd nt no guarding no rebound gallstone pancreatitis -with cholangitis and bacteremia. Now status post ERCP and cholecystectomy. Continue antibiotics, anticipate 14 days of therapy. Does appear to be slowly improving. Follow on regular low-fat diet. PT/OT eval and treat. otherwise as above Subjective Mild flatus. No nausea. No pain. Feeling better than yesterday. no headache or confusion. Breathing is comfortable. Wants to advance to solid foods for lunch. No n/v overnight. No BM. not hungry. States he voided last night decent amount. There were concerns earlier yesterday by nursing about lack of voiding during day w/ bladder scan not indicating retention. Review of Systems Review of Systems: Constitutional: Denies fever, chills Eyes: Denies blurry vision, vision changes ENT: Denies sore throat, sinus pain Cardiovascular: Denies chest pain, palpitations Respiratory: Denies shortness of breath Gastrointestinal: Denies abdominal pain, nausea, vomiting, constipation, diarrhea Genitourinary: Denies urinary symptoms including dysuria Musculoskeletal: Denies weakness, muscle aches/pain, joint aches/pain Neurological: Denies headache, numbness, tingling, focal weakness Physical Exam Physical Exam: General: Grossly A&O. NAD. Cooperative. HEENT: Atraumatic, normocephalic. Pulm: CTAB. -wheezes, -rales, -rhonchi. No respiratory distress. Cardiac: IIR, -mrg. 2+ BLE w/ chronic venous stasis changes. Abdominal: Nontender, nondistended, soft. TOMMY drain intact w/ clear ss. laparascopic scars intact. Results & Data Results & Data ([facility]) Vital Signs (Past 12 Hours) Vital Signs Temp Pulse Pulse Resp BP Pulse Ox 09/26/20 07:29 94 H 09/26/20 03:03 85 09/26/20 02:59 36.5 C 81 20 147/80 H 94 09/25/20 22:56 36.4 C L 86 19 126/76 97 09/25/20 19:47 36.6 C 85 19 145/95 H 96 Resident Activity Tracking Resident Involvement: Resident Care Provided Care Provided: Adult Hospital Medicine (1) Acute pancreatitis Acute pancreatitis complication: unspecified Pancreatitis type: biliary Qualified Code(s): K85.10 - Biliary acute pancreatitis without necrosis or infection
[2020-09-26 07:36] LABS: Mean Platelet Volume 10.5 fL (7.4-10.4); Platelet Count 99 K/uL (130-400)
[2020-09-26 07:45] LABS: Basophils # (auto) 0.01 K/uL (0-0.2); Basophils % (auto) 0.1 %; Eosinophils # (auto) 0.05 K/uL (0-0.5); Eosinophils % (auto) 0.7 %; Immature Granulocytes # (auto) 0.05 K/uL (0.00-0.02); Immature Granulocytes % (auto) 0.7 %; Lymphocytes # (auto) 0.97 K/uL (1.2-3.4); Lymphocytes % (auto) 13.8 %; Monocytes # (auto) 0.74 K/uL (0.11-0.59); Monocytes % (auto) 10.5 %; Neutrophils % (auto) 74.2 %
[2020-09-26 08:07] LABS: Albumin Level 2.5 gm/dl (3.4-5.0); BUN Creatinine Ratio 21.9 (10-20); Calcium 8.5 mg/dl (8.5-10.1); Creatinine Clr Calc Pharmacy 95.9 ml/min; Est GFR (African American) 101.3 ml/min; Est GFR (Non-African American) 87.4 ml/min; Potassium 3.4 mmol/L (3.5-5.1)
--- NOTE | 2020-09-26 08:07 | Surgery Progress Note ---
Date of Service September 26, 2020 Assessment & Plan (1) Acute pancreatitis: Postoperative day #4 ERCP and laparoscopic cholecystectomy WBC 7, patient afebrile Denies abdominal pain/n/v. Starting to pass flatus Incisions c/d/i, SAWYER drain serosang, abdomen soft Okay to continue advancement of diet as tolerates Continue full course of abx for cholangitis and bacteremia Will plan on d/c SAWYER drain before discharge Admission and Anticipated Discharge Date Admission Date: September 22, 2020 Supervising Physician Co-Signing Physician Notes pnt S&E, agree with above. s/p lap rosa and ercp for cholangitis. no surgical issues. afvss, abd soft, nt, nd. incisions c/d/i. sawyer with ss drainage, non bilious. wbc normal, lft's normal. diet as tolerated, coninue abx, drain out before discharge. Subjective Patient says he feels alright this AM. Denies abdominal pain/nausea/vomiting. Says he is starting to pass some flatus. Physical Exam Physical Exam: awake Constitutional: no acute distress Gastrointestinal (Abdomen): Inspection/Auscultation: + abdominal surgical incision (c/d/i with dermabond overtop) and + abdominal surgical drain present (serosang. ) Percussion/Palpation: abdomen soft; abdomen nontender Results & Data ([facility]) Vital Signs (Past 12 Hours) Vital Signs Temp Pulse Pulse Resp BP Pulse Ox 09/26/20 07:38 36.6 C 81 18 143/88 H 96 09/26/20 07:29 94 H 09/26/20 03:03 85 09/26/20 02:59 36.5 C 81 20 147/80 H 94 09/25/20 22:56 36.4 C L 86 19 126/76 97 PG Care Time/CCT Total # of Minutes Spent Total Time Spent with Patient: Total time spent is greater than 50% in coordination of care (as documented) at patient's floor/unit and/or counseling patient: Coding Level of Care Code None Diagnoses Acute pancreatitis K85.00 Acute pancreatitis complication: no infection or necrosis Pancreatitis type: idiopathic (1) Acute pancreatitis Acute pancreatitis complication: no infection or necrosis Pancreatitis type: idiopathic Qualified Code(s): K85.00 - Idiopathic acute pancreatitis without necrosis or infection
[2020-09-26 08:10] LABS: Albumin Globulin Ratio 0.7 (0.9-2); Globulin 3.5 gm/dl (2.5-4.0)
[2020-09-26] MEDS: FAMOTIDINE 20 MG in SYRINGE 3 ML IV SCH ×2 (08:25→19:52)
[2020-09-26] MEDS: POLYETHYLENE (MIRALAX) 17 GM PACK PO SCH ×2 (08:27→19:53)
[2020-09-26] MEDS: TAMSULOSIN HCL 0.4 MG CAP PO SCH (08:29)
[2020-09-26] MEDS: HEPARIN SOD 5,000 UNIT/0.5 ML VIAL SQ SCH ×2 (08:29→19:52)
[2020-09-26] MEDS ORDERED: POTASSIUM CHLORIDE PWD 20 MEQ PACK PO ONE (09:30)
--- NOTE | 2020-09-26 18:57 | Billing Data ---
Date of Service September 26, 2020 Coding Level of Care Code 09882 Subseq Hosp Care Lvl 3
[2020-09-26] MEDS: MIRABEGRON ER 25 MG TAB PO SCH (19:53)
[2020-09-27] MEDS: AMPICILLIN/SULBACTAM SOD 3,000 MG in 0.9 % SODIUM CHLORIDE 100 ML IV SCH ×2 (05:56→12:45)
--- NOTE | 2020-09-27 07:11 | Discharge Summary ---
Date of Service September 27, 2020 Admission HPI Per Admitting Provider 89 year old male presented with pain now with increased leukocytosis and elevated liver tests found to have a positive MRCP. Admission Exam Per Admitting Provider Constitutional: well nourished and + ill appearing; no acute distress Eyes: + scleral abnormality Respiratory: no respiratory distress and no retractions Cardiovascular: Heart Sounds: no murmur Gastrointestinal (Abdomen): Percussion/Palpation: + abdomen tender; no guarding and abdomen not rigid Principal Diagnosis gallstone pancreatitis, bacteremia, cholecystitis, cholangitis Discharge Exam General: A&Ox2 to person and time. Stated we're in [facility] in [place]. Stated supposed to get discharged from hospital. NAD. Cooperative. HEENT: Atraumatic, normocephalic. Pulm: CTAB. -wheezes, -rales, -rhonchi. Symmetrical chest rise. No respiratory distress. Cardiac: RRR, -mrg. Radial pulses intact and symmetrical. Abdominal: Mild epigastric TTP, nondistended, soft. Integ: Abd laparascopic scars intact. R abd bandage is c/d/i. No TOMMY drain. Discharge Data Allergies Allergy/AdvReac Type Severity Reaction Status Date / Time Quinolones AdvReac Unknown NAUSEA/CHIL Verified 09/22/20 00:19 LS sulfamethoxazole AdvReac Unknown NAUSEA/CHIL Verified 09/22/20 00:19 LS trimethoprim AdvReac Unknown NAUSEA/CHIL Verified 09/22/20 00:19 LS WOOL Allergy Unknown ITCHING Uncoded 09/22/20 00:19 Consultations 09/22/20 02:08 ED Decision to Admit Stat 09/22/20 05:38 Consult Gastroenterology Routine Consult General Surgery Routine 09/22/20 15:32 Consult Gastroenterology Routine 09/22/20 23:14 Consult Jewelry Mold Maker Routine Procedures Performed Operation Date: 09/22/20 17:00 Actual Procedures p Endoscopic Retrograde Cholangiopancreatogram(Not Applicable) - DO latoya Navarrete Laparoscopic Cholecystectomy(Not Applicable) - Ronak Pickett DO, FACS Ordered Studies 09/22/20 00:18 CT abd pelvis IV con only Urgent IMPRESSION: 1. Distended gallbladder with borderline wall thickening. There is possible increased intraluminal pressure. Clinical correlation with regards to cholecystitis recommended 2. Probable small distal common bile duct filling defect, concerning for choledocholithiasis.. GI consultation and consideration of ERCP/MRCP recommended 3. Fluid surrounding the inferior margin the pancreas and pancreatic head extending into the mesentery. Clinical correlation with regards to acute pancreatitis recommended. 4. Extensive colonic diverticulosis. No current evidence of acute diverticulitis 5. Fat-containing periumbilical hernia 6. Bladder wall thickening and trabeculation. Bladder diverticulum. CT angio chest PE protocol Urgent IMPRESSION: 1. No evidence of acute pulmonary embolism 2. Bilateral calcified pleural plaques 3. Interstitial lung disease with subpleural reticulation 4. Bibasilar airspace opacities, likely atelectatic although an infectious/inflammatory process could appear similar 5. Infiltration of the fat surrounding the pancreas and left adrenal gland. Clinical correlation with regards to acute pancreatitis recommended 09/22/20 05:38 MR MRCP Routine IMPRESSION: 1. There is a 7 mm filling defect within the distal common bile duct consistent with choledocholithiasis. There is associated intra- and extrahepatic biliary ductal dilatation. 2. Findings are consistent with acute cholecystitis. 3. Inflammatory change and fluid around the pancreatic head may represent pancreatitis as clinically suspected. 4. There is a small volume of upper abdominal ascites. 5. Trace pleural effusions with bibasilar consolidation. Correlate clinically for evidence of pneumonia/aspiration pneumonitis. 6. Cardiomegaly and small pericardial effusion. 7. For additional findings, refer to full report. 09/22/20 15:47 FL ERCP biliary ductal Routine - The major papilla appeared congested. - A filling defect consistent with a stone and sludge was seen on the cholangiogram. 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 - Choledocholithiasis and cholangitis was found. Complete removal was accomplished by biliary sphincterotomy and balloon extraction. - 2 Biiliary stent were placed into the common bile duct. Recommendation: - Avoid aspirin and nonsteroidal anti-inflammatory medicines for 1 week. - NPO today. - Use broad spectrum antibiotics for 2 weeks. - Repeat ERCP in 6 weeks to remove stent. Hospital Course (1) Acute pancreatitis: Dakotah Marie is a 89 y/o male w/ PMHx of BPH, asbestos exposure, and COPD who presented with acute onset R sided abdominal pain, found to have acute gallstone pancreatitis. He is status post ERCP and lap rosa, POD5, as of 09/27/20, day of discharge home. Patient had hospital delirium the day/night surr ounding day of dispo. Patient's daughter and son are able to provide 24/7 care at home and thus patient was discharged home w/ home health as opposed to rehab facility. - follow up w/ PCP in 1 week. Repeat CMP in 2 weeks - discuss anticoagulation as patient has been in afib during latter half of this admission. Rates <100, beta blockers not indicated at this time. Per daughter, patient may have had afib in past. - PO ciprofloxacin 500 mg BID until evening of 10/05/20. total of 14 days of treatment of ecoli bacteremia (from GI source). - follow up w/ gen surg in 1-2 weeks - follow up w/ gastroenterology Dr. Duran in 5-7 weeks for repeat ERCP to remove stent in bile duct. I forgot to include this in the patient discharge instructions, but have called the patient's son to update him. Acute gallstone pancreatitis: - elevated lipase, LFTs, direct bili in addition to CT evidence of pancreatitis and gallbladder distension concerning for acute pancreatitis in setting of choledocholithiasis - MRCP: confirmed choledocholithiasis - ERCP (09/22): 10mm stone removed. 2 biliary stents placed into common bile duct. findings consistent w/ choledocholithiasis and cholangitis - Per Dr. Duran's communication note: "Follow-up ERCP in 6 to 8 weeks for biliary stent removal and reevaluation of the distal common bile duct" - Liver function tests continue to improve daily - NG tube removed 09/23 evening. 09/24 evening had increased nausea so downgraded from fulls to clear liquid diet - TOMMY management per gen surg, removed 09/26 - Diet advanced to low fat - Discontinued IV fluids on 09/25 because tolerating PO intake. Patient's respiratory issues noted by surgery is likely from chronic COPD. Not suggestive of fluid overload at this time. Cumulative 18.7L in 5L out. - Provided BID Miralax during the hospitalization for possible constipation s/p surgery Acute hospital delirium - versus metabolic encephalopathy - as above. onset night of 09/26 - mixed success reorienting, some improvement w/ daughter at bedside COPD, chronic respiratory failure with hypoxia - CXR evidence of bibasilar airspace opacities may be fluid vs atelectasis. R lower lobe opacity also noted raising concern for possible pneumonia. Pleural plaques and interstitial disease also noted. - Unasyn as above would also cover pneumonia if present - not on inhalers. no wheezing noted on exam so will defer at this time. Sepsis present on admission with E coli Bacteremia secondary to cholecystitis and cholangitis: - Elevated WBC, with subsequent downtrend while on antibiotics - Blood culture positive for E. coli (1 out of 2). insensitive to augmentin and cefazolin. resistant to ampicillin. sensitive to Unasyn. - Transitioned from Zosyn (started on 09/22/20) to Unasyn 3g q6h for continued coverage. - Patient has stayed afebrile. Dispo home on PO cipro x 8.5 days for total off 14 days tx as above. allergy to fluoroquinolone noted in chart;nausea/chills. reviewed w/ patient and daughter; they do not recall the reaction. will continue w/ plan for PO cipro for bacteremia given lack of good alternative options Atrial fibrillation vs atrial flutter - rate mostly in the 80s, w/ occasional 90s. - possibly present at admission as noted on the ecg from 09/21. more prominent later ecgs and telemetry - chadsvasc 3 points. introduced discussion of anticoagulation w/ patient and daughter. f/u w/ PCP as outpatient and weigh risks/benefits. no renal impairment. Hypokalemia - 3.4, repleted Cirrhotic morphology of liver: - noted by gen surg during lap rosa - f/u as outpatient Hypotension: - Previous transient low blood pressures on 09/22 (required 1 night of ICU stay after lap rosa) resolved. mildly hypertensive 140s, 150s systolic on 09/26 - home antihypertensives held at this time BPH with obstruction/lower urinary tract symptoms: - resume home Flomax Diet: low fat. continue for 3 wks, then can transition to regular diet Dipso: PT/OT recs reviewed. safe for home w/ home health w/ family members at home around the clock Code status during this admission: full code (2) Acute cholecystitis: (3) Chronic obstructive pulmonary disease: (4) Sepsis: (5) Bacteremia: (6) BPH with obstruction/lower urinary tract symptoms: (7) Acute cholangitis due to calculus of bile duct with obstruction: (8) Acute pancreatitis: (9) Hypokalemia: (10) Atrial fibrillation and flutter: Total Time Total Time Spent Total Time Spent (In Minutes): <30 Discharge Plan Discharge Items Patient Disposition: Home - Home Health Services Reason For Visit: PANCREATITIS Discharge Diagnosis: gallstone pancreatitis, bacteremia Activity: Per Instructions section Lifting: No more than 10 pounds Bathing Comment: may shower; no soaking in tubs/pools Driving/Machine Use: no driving while taking narcotics for pain Non-emergency contact: Primary Care Provider and Surgeon Call non-emergency contact if: you have any medication questions, your symptoms worsen, you have a fever, your temperature is above 101.5 and your wound has increased redness Follow-up/Referrals: Ronak Pickett DO, FACS [Physician] - (Please call to schedule follow up in clinic within 1-2 weeks) Michael Bain MD [Primary Care Provider] - 10/02/20 1:50 pm (please follow up with PCP in 1 week. Your appointment will be with Dr Deras. If you have any questions or need to change this appointment, please call [phone].) Pam Duran DO [Physician] - (Please make appointment w/ Dr. Duran's office ([facility]). bile duct stent removal via ERCP in 5-7 weeks. [phone]) Diet: Low Fat Diet Comment: low fat diet for 3 weeks, then can slowly transition back to regular diet Addtl Attending Provider Instructions: Hi Mr. Marie, You were admitted to [facility] from 09/22/20-09/27/20 for abdominal pain later found to be from gallstone pancreatitis. During your stay, you had your gallbladder removed and a procedure (ERCP) that removed a stone from one of the ducts that connects the gallbladder to the pancreas. This stone caused an infection that caused your pancreas to be inflamed (pancreatitis; treated with fluids; no surgery needed). The infection also spread to your blood and you were treated with IV antibiotics while in the hospital. After the surgery, you had a brief stay in the ICU because your blood pressure dropped. You were found to be in atrial fibrillation during this hospitalization. Per your daughter, you may have had this condition previously. Because your heart rate stayed in the normal range (<100), no medications to slow the heart rate are needed. However, atrial fibrillation does increase your risk of stroke, so it is recommended to discuss with your primary care doctor about the risks vs benefits of taking a blood thinner. The downside would be increased bleeding risk. Please take the antibiotic ciprofloxacin 500 mg oral tablet twice a day until the evening of 10/05/20. Start the first dose tonight 09/27/20. The total treatment course of your bacteremia (infection of blood) will be 14 days. You finished off the first ~5.5 days while in the hospital. Please make an appointment with your primary care doctor to be seen in 1 week for hospital follow up. Please have your labwork (comprehensive metabolic panel) rechecked in 2 weeks to check on your electrolytes, kidney, and liver function. Please make an appointment with your surgeon Dr. Ronak Pickett to be seen in 1-2 weeks. The continuous pillowcase cutter arranged for home health aides and physical and occupational therapy to visit your home starting Friday10/02/20. standard return precautions If you develop any new or worsening symptoms including fever, chills, sweats, ch est pain, chest pressure, difficulty breathing, uncontrolled nausea/vomiting, rash, wheezing, passing out or nearly passing out, bleeding, black/bloody bowel movements, or other new or concerning symptoms please call your primary care physician, or call 911 for re-evaluation in the emergency department if you are very concerned. Addtl Rehabilitation Services Manager Provider Instructions: Change your dressing where the drain was daily with dry 4x4 gauze and medical tape until the area is healed and no longer draining. Pending Studies at Discharge: No Stand-Alone Forms: My [facility], Smoking Cessation Medications and DC Order Prescriptions: New ciprofloxacin HCl [Cipro] 500 mg tablet 500 mg PO BID Qty: 17 RF: 0 Continued cyanocobalamin (vitamin B-12) 1,000 mcg capsule 1,000 mcg PO DAILY RF: 0 alendronate 35 mg tablet 35 mg PO WK RF: 0 tamsulosin 0.4 mg capsule 0.4 mg PO DAILY RF: 0 spironolacton-hydrochlorothiaz 25-25 mg tablet 1 tab PO QAM RF: 0 cholecalciferol (vitamin D3) [Vitamin D3] 50 mcg (2,000 unit) Tablet 50 mcg PO BID RF: 0 Myrbetriq 25 mg Tablet Extended Release 24 Hr 25 mg PO QPM RF: 0 Discharge Orders: Discharge Order (Routine); Ordered 09/27/20 Ordered By: Negro Licona Admission Data Admit Date/Time: 09/22/20 02:52 Attending Provider: Hugo Ambrocio Admit Provider: Alanna Maza Primary Care Provider: Michael Bain Other Providers: Terry Eason ; Yuriy Stinson ; Rishi Matos ; Umesh Henderson ; Tom Harper ; Tara Beyer ; Mal[facility] Other Interventions: Discharge Summary Assessment (RN) Last Done: 09/27/20 16:57 Supervising Physician Co-Signing Physician Notes I personally examined the patient and verified all lyles points of history and exam, discussed case, and agree with decision making with Dr Licona. Feeling better, after initially discussing with patient findings from PT/OT eval's in high probability of needing rehab, we were informed that patient's adult children felt comfortable with looking after him while he adapt to life back at home. vitals noted, fatigued but nad heent nc at mmm breathing unlabored no accessory muscles good effort skin no rashes no pallor or icterus. No focal neuro deficits. gallstone pancreatitis -with cholangitis and bacteremia. Now status post ERCP and cholecystectomy. Continue antibiotics, anticipate 14 days of therapysafe to do so as an outpatient on p.o. antibiotics. Outpatient follow-up. Weakness, and mild delirium/metabolic encephalopathydoes appear safe for home with home PT given his adult children giving him 24-hour supervision. otherwise as above Resident Activity Tracking Resident Involvement: Resident Care Provided Care Provided: Adult [facility] Medicine Home Health Attestation I certify that this patient is under my care and that I, or a physicians assistant director working with me, had a face to-face encounter that meets the home health [id number] encounter requirements with this patient. The encounter with the patient was in whole, or in part, for the following medical condition, which is the primary reason for home health care (list medical condition): Home PT I certify that, based on my findings, the following services are medically necessary home health services: My clinical findings support the need for the above services because: PT Assessment for Endurance / Balance / Strength PT Eval for Safety and Mobility PT Eval for Safety, Gait Training, Assistive Devices PT Gait and Balance Training, Strengthening and Safety Further, I certify that my clinical findings support that this patient is homebound (i.e. absences from home require considerable and taxing effort and ar e for medical reasons or confucianist services or infrequently or of short duration when for other reasons) because: Certification for Home Health Services: Based on the above findings, I certify that this patient is confined to the home and needs intermittent snf care, physical therapy and/or speech therapy or continues to need occupational therapy. The patient is under my care, and I have initiated the establishment of the plan of care. This patient will be followed by a physician who will periodically review the plan of care.
[2020-09-27 07:23] LABS: Basophils # (auto) 0.02 K/uL (0-0.2); Basophils % (auto) 0.3 %; Eosinophils # (auto) 0.04 K/uL (0-0.5); Eosinophils % (auto) 0.6 %; Hematocrit (blood only) 36.1 % (42-52); Hemoglobin 11.9 g/dL (14.0-18.0); Immature Granulocytes # (auto) 0.14 K/uL (0.00-0.02); Immature Granulocytes % (auto) 2.2 %; Lymphocytes # (auto) 0.81 K/uL (1.2-3.4); Lymphocytes % (auto) 12.6 %; Mean Corpuscular Hemoglobin 31.2 pg (25-34); Mean Corpuscular Volume 94.8 fL (80-100); Mean Platelet Volume 11.1 fL (7.4-10.4); Monocytes # (auto) 0.79 K/uL (0.11-0.59); Monocytes % (auto) 12.3 %; Neutrophils # (auto) 4.64 K/uL (1.4-6.5); Platelet Count 125 K/uL (130-400); RDW Standard Deviation 48.6 fL (36.4-46.3); Red Blood Count 3.81 M/uL (4.7-6.1); White Blood Count 6.44 K/uL (4.8-10.8)
[2020-09-27 07:53] LABS: BUN Creatinine Ratio 20.9 (10-20); Calcium 8.5 mg/dl (8.5-10.1); Creatinine Clr Calc Pharmacy 81.6 ml/min; Est GFR (African American) 94.9 ml/min; Est GFR (Non-African American) 81.9 ml/min; Potassium 3.4 mmol/L (3.5-5.1)
--- NOTE | 2020-09-27 09:00 | Surgery Progress Note ---
Date of Service September 27, 2020 Assessment & Plan (1) Acute cholangitis due to calculus of bile duct with obstruction: 89 y/o male s/p lap rosa and ercp for cholangitis, doing well. okay for d/c from surgery standpoint continue full course of abx for cholangitis and bacteremia follow up in 2 weeks in surgery clinic activity restrictions and wound care instructions reviewed return precautions given f/u with gi as outpatient for stent removal/ercp Admission and Anticipated Discharge Date Admission Date: September 22, 2020 Subjective POD#5 lap rosa and ercp for cholangitis. Doing well, tolerating, diet, no pain. Drain removed yesterday. Physical Exam Constitutional: WD/WN, vitals as above Gastrointestinal (Abdomen): normal bowel sounds, soft, nontender, no hepatosplenomegaly Inspection/Auscultation: + abdominal surgical incision (no infection) Results & Data ([facility]) Vital Signs (Past 12 Hours) Vital Signs Temp Pulse Resp BP Pulse Ox 09/27/20 08:00 36.4 C L 91 H 20 150/80 H 90 09/27/20 02:58 36.6 C 99 H 18 149/95 H 94 09/26/20 23:18 36.5 C 98 H 17 129/87 98 Laboratory Results Laboratory Results - last 24 hr 09/27/20 09/27/20 06:56 06:56 WBC 6.44 RBC 3.81 L Hgb 11.9 L Hct 36.1 L MCV 94.8 MCH 31.2 MCHC 33.0 RDW Std Deviation 48.6 H RDW Coeff of Andre 14.0 Plt Count 125 L MPV 11.1 H Immature Gran % (Auto) 2.2 Neut % (Auto) 72.0 Lymph % (Auto) 12.6 [place] % (Auto) 12.3 Eos % (Auto) 0.6 Baso % (Auto) 0.3 Neut # (Auto) 4.64 Lymph # (Auto) 0.81 L Glasscock # (Auto) 0.79 H Eos # (Auto) 0.04 Baso # (Auto) 0.02 Immature Gran # (Auto) 0.14 H Sodium 141 Potassium 3.4 L Chloride 110 H Carbon Dioxide 25 Anion Gap 6.0 BUN 16 Creatinine 0.75 Est Cr Clr Drug Dosing 81.6 Est GFR ( Amer) 94.9 Est GFR (Non-Af Amer) 81.9 BUN/Creatinine Ratio 20.9 H Glucose 76 Calcium 8.5 PG Care Time/CCT Total # of Minutes Spent Total Time Spent with Patient: Total time spent is greater than 50% in coordination of care (as documented) at patient's floor/unit and/or counseling patient: Coding Level of Care Code None Diagnoses Acute cholangitis due to calculus of bile duct with obstruction K80.33
[2020-09-27] MEDS: POLYETHYLENE (MIRALAX) 17 GM PACK PO SCH (09:20)
[2020-09-27] MEDS: TAMSULOSIN HCL 0.4 MG CAP PO SCH (09:26)
[2020-09-27] MEDS: HEPARIN SOD 5,000 UNIT/0.5 ML VIAL SQ SCH (09:26)
[2020-09-27] MEDS: FAMOTIDINE 20 MG in SYRINGE 3 ML IV SCH (09:26)
[2020-09-27] MEDS ORDERED: POTASSIUM CHLORIDE PWD 20 MEQ PACK PO ONE (09:41)
--- NOTE | 2020-09-27 17:28 | Billing Data ---
Date of Service September 27, 2020 Coding Level of Care Code D/C Day Management <30 mins
--- NOTE | 2020-09-27 17:28 | Billing Data ---
Date of Service September 27, 2020 Coding Level of Care Code D/C Day Management <30 mins
--- NOTE | 2020-10-10 11:52 | Coding Query ---
Your help is needed for correct coding of this account; please clarify if the patients Post-operative Ileus was: ( ) expected out of the surgery ( ) unexpected complication from the surgery (x)other please specify: this is not my patient. please send to Dr. Pickett. thank you Thank you Della VELA
== END 2020-09-27 17:38 | disposition home health service (06) | DRG 853 ==
LOC: ED 22:58 → 2N 09-22 02:52 → SUATTDRO 09-22 02:52 → 2N 09-22 05:10 → 1E 09-22 20:06 → 2W 09-23 11:00
DX: I48.92 Unspecified atrial flutter; I48.91 Unspecified atrial fibrillation; J44.9 Chronic obstructive pulmonary disease, unspecified; E87.6 Hypokalemia; I05.0 Rheumatic mitral stenosis; I95.9 Hypotension, unspecified; K83.1 Obstruction of bile duct; K85.00 Idiopathic acute pancreatitis without necrosis or infection; J96.21 Acute and chronic respiratory failure with hypoxia; D72.829 Elevated white blood cell count, unspecified; A41.51 Sepsis due to Escherichia coli [E. coli]; Z87.891 Personal history of nicotine dependence; J18.9 Pneumonia, unspecified organism; N40.1 Benign prostatic hyperplasia with lower urinary tract symptoms; R65.21 Severe sepsis with septic shock